=== PATIENT | male | born 1950 | race African-American/Black ===

== ENCOUNTER 2016-10-20 14:29 | Emergency (ER) | payer OTHER ==
[2016-10-20 14:34] VITALS: TEMP 98; BMI 40.6
--- NOTE | 2016-10-20 15:00 | PDOC ---
History of Present Illness - General History Source: Patient Exam Limitations: No Limitations - History of Present Illness Initial Comments: 10/20/16 15:01 The patient is a 66 year old male, with a significant past medical history of HTN and seizures, who was BIBA and presents to the emergency department with left knee and ankle pain occurring today. The patient reports eating and slipping on a wet floor landing on his left knee and left ankle. He denies any head trauma or LOC. He reports hearing a snap in his left ankle with the immediate onset of pain. He ranks his pain a 8/10 in pain intensity. He denies any recent fevers, chills, headache or dizziness. He denies any recent nausea, vomit, diarrhea or constipation. Allergies: As per nursing notes. <Toribio Vasquez - Last Filed: 10/20/16 15:01> - General History Source: Patient Exam Limitations: No Limitations <Tiffany Crabtree - Last Filed: 10/20/16 17:11> - General Chief Complaint: Injury Stated Complaint: LEG INJURY Time Seen by Provider: 10/20/16 14:48 Past History <Toribio Vasquez - Last Filed: 10/20/16 15:01> - Past Medical History HTN: Yes Seizures: Yes - Surgical History Appendectomy: Yes - Immunization History Immunization Up to Date: Yes - Psycho/Social/Smoking Cessation Hx Suicidal Ideation: No Smoking Status: No Smoking History: Never smoked Number of Cigarettes Smoked Daily: 0 Information on smoking cessation initiated: No Hx Alcohol Use: No Drug/Substance Use Hx: No Substance Use Type: None <Tiffany Crabtree - Last Filed: 10/20/16 17:11> - Past Medical History Allergies/Adverse Reactions: Allergies Allergy/AdvReac Type Severity Reaction Status Date / Time ciprofloxacin [From Cipro] AdvReac Intermediate Verified 10/20/16 14:31 ciprofloxacin HCl AdvReac Intermediate Verified 10/20/16 14:31 [From Cipro] Home Medications: Ambulatory Orders Amlodipine Besylate [Norvasc -] 10 mg PO DAILY 05/25/15 Atorvastatin Ca [Lipitor] 40 mg PO HS 05/25/15 Carbamazepine Xr [Tegretol XR -] 400 mg PO BID 05/25/15 Clonidine HCl 1 mg PO AM 05/25/15 Divalproex [Depakote -] 1,000 mg PO BID 05/25/15 Losartan Potassium [Cozaar] 100 mg PO DAILY 05/25/15 Tamsulosin HCl [Flomax -] 0.4 mg PO BID 05/25/15 Topiramate [Topamax] 100 mg PO BID 05/25/15 Clonidine HCl 0.4 mg PO HS 10/20/16 Review of Systems - Review of Systems Able to Perform ROS?: Yes Comments:: 10/20/16 15:02 GENERAL/CONSTITUTIONAL: No: fever, chills, weakness, loss of appetite. HEAD, EYES, EARS, NOSE AND THROAT: No: change in vision, ear pain, discharge, sore throat, throat swelling. CARDIOVASCULAR: No: chest pain, lightheadedness, palpitations, syncope RESPIRATORY: No: cough, shortness of breath, wheezing, hemoptysis, stridor. GASTROINTESTINAL: No: nausea, vomiting, diarrhea, abdominal cramping, rectal bleeding, constipation. GENITOURINARY: No: dysuria, hematuria, frequency, urgency, flank pain. MUSCULOSKELETAL: +left knee pain and left ankle pain. No: back pain, neck pain, muscle swelling or pain SKIN : No: lesions, pallor, rash or easy bruising. NEUROLOGIC: No: headache, vertigo, paresthesias, weakness ENDOCRINE: No: unexplained weight gain or loss HEMATOLOGIC/LYMPHATIC: No: anemia, easy bleeding, swelling nodes. <Toribio Vasquez - Last Filed: 10/20/16 15:01> *Physical Exam - Vital Signs Last Vital Signs Temp Pulse Resp BP Pulse Ox 98.0 F 85 20 160/89 100 10/20/16 14:31 10/20/16 14:31 10/20/16 14:31 10/20/16 14:31 10/20/16 14:31 - Physical Exam Comments: 10/20/16 15:02 GENERAL: The patient is in no acute distress. HEAD: Normal with no signs of trauma. EYES: PERRLA, EOMI, sclera anicteric, conjunctiva clear. ENT: Ears normal, nares patent, oropharynx clear without exudates. Moist mucous membranes. NECK: Normal range of motion, supple without lymphadenopathy, JVD, or masses. LUNGS: Breath sounds equal, clear to auscultation bilaterally. No wheezes, and no crackles. HEART: Regular rate and rhythm, normal S1 and S2 without murmur, rub or gallop. ABDOMEN: Soft, nontender, normoactive bowel sounds. No guarding, no rebound. No masses palpable. EXTREMITIES: LEFT Medial malleolar tenderness. Anterior drawer and posterior drawer are negative. NEUROLOGICAL: Cranial nerves II through XII grossly intact. Normal speech. No focal neurological deficits. MUSCULOSKELETAL: Back non-tender to palpation, no CVA tenderness SKIN: Warm, Dry, normal turgor, no rashes or lesions noted. <Toribio Vasquez - Last Filed: 10/20/16 15:01> - Vital Signs Last Vital Signs Temp Pulse Resp BP Pulse Ox 98.0 F 85 20 160/89 100 10/20/16 14:31 10/20/16 14:31 10/20/16 14:31 10/20/16 14:31 10/20/16 14:31 <Tiffany Crabtree - Last Filed: 10/20/16 17:11> Medical Decision Making - Medical Decision Making 10/20/16 15:00 A portion of this note was documented by scribe services under my direction. I have reviewed the details of the note, within reason, and agree with the documentation with the following case summary and management plan written by me. Nursing documentation reviewed and incorporated into medical decision making 10/20/16 17:05 This is a 66-year-old male with a history of seizures, hypertension who presents to the emergency department with a complaint of left knee pain. Patient states he was walking in [employer], floor was wet, and his leg slipped and buckled beneath him, causing him to fall backwards. Patient denies head trauma, patient denies loss of consciousness. Patient states his knee bent beneath him and his knee hit the ground. On examination patient complains of left medial malleolus pain and tenderness, left knee pain. Patient is able to range at his ankle with no difficulties, however this causes pain. Patient is able to flex at the knee however this is limited due to pain. No swelling noted. No patellar tenderness. Anterior drawer negative. Posterior drawer negative. Will do x ray Will give pain medication Pt refused narcotics Given Motrin and Robaxin with improvements in symptoms Xray: no fracture or dislocation, (+) arthritis I have explained to patient that I am concerned that he has either a ligamentous injury or meniscal injury Will darius wrap Will give crutches Clinical impression: knee pain <Tiffany Crabtree - Last Filed: 10/20/16 17:11> *DC/Admit/Observation/Transfer - Attestations Scribe Attestion: 10/20/16 15:02 Documentation prepared by Toribio Vasquez, acting as biomedical equipment tech for Tiffany Crabtree MD. <Toribio Vasquez - Last Filed: 10/20/16 15:01> - Discharge Dispostion Admit: No <Tiffany Crabtree - Last Filed: 10/20/16 17:11> Diagnosis at time of Disposition: Knee injury Qualifiers: Encounter type: initial encounter Laterality: left Qualified Code(s): S89.92XA - Unspecified injury of left lower leg, initial encounter - Discharge Dispostion Disposition: HOME Condition at time of disposition: Improved - Referrals Referrals: Genevieve Whitman MD [Primary Care Provider] - Uli Acosta MD [Staff Physician] - Josias Gutiérrez MD [Staff Physician] - - Patient Instructions Printed Discharge Instructions: DI for Knee Pain, DI for Knee Sprain Additional Instructions: Prasanna I am so sorry this happened to you today Please keep knee immobilized Please use crutches as needed for ambulation Please follow up with your Primary Care physician and Ortho before the end of the week - Post Discharge Activity Work/School Note: Back to Work
[2016-10-20] MEDS ORDERED: IBUPROFEN 600 MG TABLET (FP) PO ONE ×2 (15:01→15:18)
[2016-10-20] MEDS ORDERED: METHOCARBAMOL 500 MG TABLET PO ONE (15:01)
[2016-10-20] MEDS ORDERED: OXYCODONE/APAP 5/325MG COMBO TABLET PO ONE (15:01)
[2016-10-20] MEDS ORDERED: METHOCARBAMOL 500 MG TABLET ONE (15:17)
[2016-10-20] MEDS ORDERED: OXYCODONE/APAP 5/325MG COMBO TABLET ONE (15:17)
[2016-10-20 17:30] VITALS: BP 147/88; PULSE 65
== END 2016-10-20 17:31 | disposition home or self-care (01) ==
LOC: JER 14:29
PROC: 2W3RX1Z Immobilization of Left Lower Leg using Splint (ICD-10-PCS; principal; 2016-10-20)
DX: S89.92XA Unspecified injury of left lower leg, initial encounter (principal); W01.0XXA Fall on same level from slipping, tripping and stumbling without subsequent striking against object, initial encounter; Y93.89 Activity, other specified; Y92.9 Unspecified place or not applicable; I10 Essential (primary) hypertension
CPT/HCPCS: 29515; 73562-TC-LT; 73610-TC-LT; 73630-TC-LT; 99282-25

== ENCOUNTER 2016-11-25 12:37 | Emergency (ER) | payer OTHER ==
[2016-11-25 12:46] VITALS: BP 144/90; PULSE 91; TEMP 98; BMI 35.9
== END 2016-11-25 14:05 | disposition left against medical advice (07) ==
LOC: JERFT 12:37
DX: Z53.21 Procedure and treatment not carried out due to patient leaving prior to being seen by health care provider (principal)
CPT/HCPCS: 99281-25

== ENCOUNTER 2018-05-13 13:06 | Emergency (ER) | payer OTHER ==
[2018-05-13 13:17] VITALS: TEMP 98.6; BMI 34.0
--- NOTE | 2018-05-13 13:21 | PDOC ---
History of Present Illness - History of Present Illness Initial Comments: The patient is a 68 year old male, with a significant past medical history of HTN, HLD, BPH and seizures, who comes in complaining of a week of difficulty urinating, urgency and dark colored urine. Patient reports recent illness on April 30 with associated fever (103F)& body aches, and was given a course of Augmentin by his primary care doctor. One week ago, he began experiencing a increased urgency, stream inconsistency, and dark tea colored urine. Patient s reports some lower back pain. Today, he states that he saw his urologist who sent him to the ER to r/o acute renal insufficiency. Patient denies any current chest pain, shortness of breath, lightheadedness, or dizziness. Patient denies any dysuria, blood clots in urine, or prior history of UTIs. Allergies: ciprofloxacin Past surgical history: Appendectomy Social history: Quit smoking 4 years ago. PCP - Dr. Genevieve Whitman Urologist: Dr. Chacon <Lupis Coronado - Last Filed: 05/13/18 16:12> - General History Source: Patient Exam Limitations: No Limitations <Tiffany Crabtree - Last Filed: 05/13/18 16:24> - General Chief Complaint: Urinary Problem Stated Complaint: PAIN Time Seen by Provider: 05/13/18 13:21 Past History <Lupis Coronado - Last Filed: 05/13/18 16:12> - Past Medical History COPD: No HTN: Yes Hypercholesterolemia: Yes Seizures: Yes - Surgical History Appendectomy: Yes - Immunization History Immunization Up to Date: Yes - Suicide/Smoking/Psychosocial Hx Smoking Status: No Smoking History: Never smoked Number of Cigarettes Smoked Daily: 0 Hx Alcohol Use: No Drug/Substance Use Hx: No Substance Use Type: None <Tiffany Crabtree - Last Filed: 05/13/18 16:24> - Past Medical History Allergies/Adverse Reactions: Allergies Allergy/AdvReac Type Severity Reaction Status Date / Time ciprofloxacin [From Cipro] AdvReac Intermediate dizziness Verified 05/13/18 14: 16 Home Medications: Ambulatory Orders Amlodipine Besylate [Norvasc -] 10 mg PO DAILY 05/25/15 Atorvastatin Ca [Lipitor] 40 mg PO HS 05/25/15 Carbamazepine Xr [Tegretol XR -] 400 mg PO BID 05/25/15 Clonidine HCl 1 mg PO AM 05/25/15 Divalproex [Depakote -] 1,000 mg PO BID 05/25/15 Losartan Potassium [Cozaar] 100 mg PO DAILY 05/25/15 Tamsulosin HCl [Flomax -] 0.4 mg PO BID 05/25/15 Topiramate [Topamax] 100 mg PO BID 05/25/15 Clonidine HCl 0.4 mg PO HS 10/20/16 Methocarbamol [Robaxin -] 500 mg PO TID PRN #21 tablet 10/20/16 Review of Systems - Review of Systems Comments:: GENERAL/CONSTITUTIONAL: No: fever, chills, weakness, loss of appetite. HEAD, EYES, EARS, NOSE AND THROAT: No: change in vision, ear pain, discharge, sore throat, throat swelling. CARDIOVASCULAR: No: chest pain, lightheadedness, palpitations, syncope RESPIRATORY: No: cough, shortness of breath, wheezing, hemoptysis, stridor. GASTROINTESTINAL: No: nausea, vomiting, abdominal cramping, diarrhea, rectal bleeding, constipation. GENITOURINARY: + dark colored urine, urgency, inconsistent streams No: dysuria, flank pain. MUSCULOSKELETAL: + some mid-line lumbar tenderness No: neck pain, joint pain, muscle swelling or pain SKIN: No: lesions, pallor, rash or easy bruising. NEUROLOGIC: No: headache, vertigo, paresthesias, weakness ENDOCRINE: No: unexplained weight gain or loss HEMATOLOGIC/LYMPHATIC: No: anemia, easy bleeding, swelling nodes <Lupis Coronado - Last Filed: 05/13/18 16:12> *Physical Exam - Vital Signs Last Vital Signs Temp Pulse Resp BP Pulse Ox 98.6 F 70 18 149/83 99 05/13/18 13:12 05/13/18 13:12 05/13/18 13:12 05/13/18 13:12 05/13/18 13:12 - Physical Exam Comments: GENERAL: The patient is in no acute distress. HEAD: Normal with no signs of trauma. EYES: PERRLA, EOMI, sclera anicteric, conjunctiva clear. ENT: Ears normal, nares patent, oropharynx clear without exudates. Moist mucous membranes. NECK: Normal range of motion, supple without lymphadenopathy, JVD, or masses. LUNGS: Breath sounds equal, clear to auscultation bilaterally. No wheezes, and no crackles. HEART:Regular rate and rhythm, normal S1 and S2 without murmur, rub or gallop. ABDOMEN: Soft, nontender, normoactive bowel sounds. No guarding, no rebound. EXTREMITIES: Normal range of motion, no edema. No clubbing or cyanosis. No erythema, or tenderness. NEUROLOGICAL: Cranial nerves II through XII grossly intact. Normal speech. No focal neurological deficits. MUSCULOSKELETAL: Some mild mid-line lumbar tenderness, no CVA tenderness SKIN: Warm, Dry, normal turgor, no rashes or lesions noted. Prostate Exam: No testicular pain or swelling. <Lupis Coronado - Last Filed: 05/13/18 16:12> - Vital Signs Last Vital Signs Temp Pulse Resp BP Pulse Ox 98.6 F 70 18 149/83 99 05/13/18 13:12 05/13/18 13:12 05/13/18 13:12 05/13/18 13:12 05/13/18 13:12 <Tiffany Crabtree - Last Filed: 05/13/18 16:24> ED Treatment Course - LABORATORY CBC & Chemistry Diagram: 05/13/18 14:02 05/13/18 14:02 - ADDITIONAL ORDERS Additional order review: 05/13/18 14:02 RBC 4.52 MCV 98.0 H MCHC 33.1 RDW 14.4 MPV 9.6 Neutrophils % 57.3 D Lymphocytes % 26.3 Monocytes % 15.2 H Eosinophils % 0.2 D Basophils % 1.0 <Lupis Coronado - Last Filed: 05/13/18 16:12> - LABORATORY CBC & Chemistry Diagram: 05/13/18 14:02 05/13/18 14:02 <Tiffany Crabtree - Last Filed: 05/13/18 16:24> Medical Decision Making - Medical Decision Making 68 uo M h/o seizure d/o, HTN, presenting to the ER from Urologist's office due to abn labs Urine is dark, frequency and urgency No fevers or chills No flank or groin pain Pt has back pain - midline lumbar tenderness DD: Dark urine - hematuria vs. concentrated urine? If hematuria - glomerulonephritis vs. UTI vs cystitis If urine concentrated - will give IV fluids 05/13/18 14:51 Laboratory Tests 05/13/18 05/13/18 14:02 14:02 WBC 10.0 Hgb 14.7 Hct 44.3 Plt Count 248 D Neutrophils % 57.3 D Lymphocytes % 26.3 Urine Ketones Negative Urine Blood Negative Urine Nitrite Negative Ur Leukocyte Esterase Negative 05/13/18 15:21 Laboratory Tests 05/27/15 05/28/15 05/13/18 06:20 06:00 14:02 WBC 8.8 D 10.0 Hgb 14.3 14.7 Hct 43.2 44.3 Plt Count 140 248 D Sodium 140 Potassium 3.9 Chloride 108 H Carbon Dioxide 23 BUN 16 Creatinine 1.2 Calcium 8.2 L Creatine Kinase 05/13/18 14:02 WBC Hgb Hct Plt Count Sodium 141 Potassium 4.8 Chloride 110 H Carbon Dioxide 23 BUN 20 H Creatinine 1.5 H Calcium 8.2 L Creatine Kinase 382 H 05/13/18 15:[address] Arndt. Will discharged home. Will ask patient to stay hydrated. Will ask patient to continue further BPH. Will ask patient should follow-up with his urologist. His labs. Return to the ER for any other concerns or complaints Clinical impression: Dark colored urine, initial presentation <Tiffany Crabtree - Last Filed: 05/13/18 16:24> *DC/Admit/Observation/Transfer - Attestations Scribe Attestion: 05/13/18 14:47 Documentation prepared by Lupis Coronado, acting as medical sonographer for Tiffany Crabtree MD. <Lupis Coronado - Last Filed: 05/13/18 16:12> - Discharge Dispostion Decision to Admit order: No <Tiffany Crabtree - Last Filed: 05/13/18 16:24> Diagnosis at time of Disposition: Dehydration - Discharge Dispostion Disposition: HOME Condition at time of disposition: Stable - Referrals Referrals: Genevieve Whitman MD [Staff Physician] - Manny Chacon MD [Staff Physician] - - Patient Instructions Printed Discharge Instructions: DI for Dehydration -- Adult Additional Instructions: Mr Mckeon Thank you for coming in to the ER today Please be sure to stay hydrated by drinking as much fluids as possible Please be sure to follow up with your primary care physician AND your Urologist within 1 week Monitor yourself for fevers or chills Return to the ER for any other concerns or complaints
[2018-05-13] MEDS ORDERED: SODIUM CHLORIDE 1,000 ML IV SCH (14:00)
[2018-05-13 14:16] LABS: EOS % 0.2 % (0-4.5); HEMATOCRIT 44.3 % (35.4-49); HEMOGLOBIN 14.7 GM/dL (11.7-16.9); LYMPH % 26.3 % (8-40); MCH 32.4 pg (25.7-33.7); MCHC 33.1 g/dl (32.0-35.9); MEAN PLT VOLUME 9.6 fl (7.5-11.1); MONO % 15.2 % (3.8-10.2); NEUT % 57.3 % (42.8-82.8); PLATELET COUNT 248 K/MM3 (134-434); RBC 4.52 M/mm3 (4.00-5.60); RDW 14.4 % (11.9-15.9)
[2018-05-13 14:25] LABS: URINE APPEARANCE CLEAR; URINE BILIRUBIN NEGATIVE (<2.0 mg/dL); URINE COLOR DKYELLOW; URINE GLUCOSE (UA) NEGATIVE (NEGATIVE); URINE KETONE NEGATIVE (NEGATIVE); URINE LEUK ESTERASE NEGATIVE (NEGATIVE); URINE NITRITE NEGATIVE (NEGATIVE); URINE PROTEIN NEGATIVE (NEGATIVE); URINE UROBILINOGEN NEGATIVE mg/dL (0.2-1.0)
[2018-05-13 15:03] LABS: ALBUMIN 2.8 g/dl (3.4-5.0); ALK PHOS 132 U/L (45-117); ANION GAP 8 MMOL/L (8-16); BILIRUBIN,TOTAL 0.5 mg/dL (0.2-1); BLOOD UREA NITROGEN 20 mg/dL (7-18); CALCIUM 8.2 mg/dL (8.5-10.1); CHLORIDE 110 mmol/L (98-107); CO2 23 mmol/L (21-32); CREATININE 1.5 mg/dL (0.55-1.3); GLUCOSE,RANDOM 110 mg/dL (74-106); SGOT/AST 57 U/L (15-37); SGPT/ALT 43 U/L (13-61); SODIUM 141 mmol/L (136-145); TOT PROT 7.8 g/dl (6.4-8.2)
[2018-05-13 15:10] LABS: POTASSIUM 4.8 mmol/L (3.5-5.1)
[2018-05-13 17:12] VITALS: BP 124/78; PULSE 59
== END 2018-05-13 17:10 | disposition home or self-care (01) ==
LOC: JER 13:06
PROC: 3E0337Z Introduction of Electrolytic and Water Balance Substance into Peripheral Vein, Percutaneous Approach (ICD-10-PCS; principal; 2018-05-13)
DX: E86.0 Dehydration (principal); I10 Essential (primary) hypertension; N40.0 Benign prostatic hyperplasia without lower urinary tract symptoms; R56.9 Unspecified convulsions; E78.5 Hyperlipidemia, unspecified
CPT/HCPCS: 36415; 80053; 81003; 82550; 82553; 85025; 87086; 96360; 99282-25; J7030

== ENCOUNTER 2018-09-12 10:38 | Emergency (ER) | payer OTHER ==
[2018-09-12 10:50] VITALS: BP 183/98; PULSE 89; TEMP 97.7; BMI 34.0
[2018-09-12 11:47] LABS: BASO % 0.6 % (0-2.0); EOS % 0.9 % (0-4.5); HEMATOCRIT 46.1 % (35.4-49); HEMOGLOBIN 15.8 GM/dL (11.7-16.9); LYMPH % 29.5 % (8-40); MCH 33.4 pg (25.7-33.7); MCHC 34.3 g/dl (32.0-35.9); MEAN CELL VOLUME 97.4 fl (80-96); MEAN PLT VOLUME 10.6 fl (7.5-11.1); MONO % 16.2 % (3.8-10.2); NEUT % 52.8 % (42.8-82.8); PLATELET COUNT 146 K/MM3 (134-434); RBC 4.73 M/mm3 (4.00-5.60); RDW 14.1 % (11.9-15.9); WHITE BLOOD COUNT 6.2 K/mm3 (4.0-10.0)
[2018-09-12 11:52] LABS: URINE APPEARANCE CLEAR; URINE BILIRUBIN NEGATIVE (<2.0 mg/dL); URINE COLOR YELLOW; URINE GLUCOSE (UA) NEGATIVE (NEGATIVE); URINE KETONE NEGATIVE (NEGATIVE); URINE LEUK ESTERASE NEGATIVE (NEGATIVE); URINE NITRITE NEGATIVE (NEGATIVE); URINE PROTEIN NEGATIVE (NEGATIVE)
--- NOTE | 2018-09-12 11:53 | PDOC ---
History of Present Illness - General Chief Complaint: Back Pain Stated Complaint: BACK PAIN Time Seen by Provider: 09/12/18 11:21 History Source: Patient Exam Limitations: No Limitations - History of Present Illness Initial Comments: 09/12/18 11:46 68-year-old male presents to ED with complaints of right thoracic pain radiating to his right flank area. Patient states has had this discomfort for the past week are relieved with Naprosyn and [id number] Tylenol. Patient denies difficulty urinating, rash, swelling, injury abdominal pain, history of gallstones or liver disease. Patient denies chest pain or shortness of breath along with cough. Occurred: reports: just prior to arrival Severity: reports: mild Method of Injury: Yes: unknown Modifying Factors: improves with: None Loss of Consciousness: no loss of consciousness Associated Symptoms (Fall): other Past History - Travel Traveled outside of the country in the last 30 days: No - Past Medical History Allergies/Adverse Reactions: Allergies Allergy/AdvReac Type Severity Reaction Status Date / Time ciprofloxacin [From Cipro] AdvReac Intermediate dizziness Verified 09/12/18 10: 45 Home Medications: Ambulatory Orders Amlodipine Besylate [Norvasc -] 10 mg PO DAILY 05/25/15 Atorvastatin Ca [Lipitor] 40 mg PO HS 05/25/15 Carbamazepine Xr [Tegretol XR -] 400 mg PO BID 05/25/15 Clonidine HCl 1 mg PO AM 05/25/15 Divalproex [Depakote -] 1,000 mg PO BID 05/25/15 Losartan Potassium [Cozaar] 100 mg PO DAILY 05/25/15 Tamsulosin HCl [Flomax -] 0.4 mg PO BID 05/25/15 Topiramate [Topamax] 100 mg PO BID 05/25/15 Clonidine HCl 0.4 mg PO HS 10/20/16 Cyclobenzaprine HCl [Flexeril -] 5 mg PO TID PRN #12 tablet 09/12/18 Ibuprofen [Motrin -] 600 mg PO TID PRN #21 tablet 09/12/18 COPD: No Disorders: Yes HTN: Yes Hypercholesterolemia: Yes Seizures: Yes - Surgical History Appendectomy: Yes - Immunization History Immunization Up to Date: Yes - Suicide/Smoking/Psychosocial Hx Smoking Status: No Smoking History: Unknown if ever smoked Number of Cigarettes Smoked Daily: 0 Hx Alcohol Use: No Drug/Substance Use Hx: No Substance Use Type: None Patient Lives Alone: No Lives with/in: spouse/SO Review of Systems - Review of Systems Able to Perform ROS?: Yes Constitutional: No: Symptoms Reported HEENTM: No: Symptoms Reported Respiratory: No: Symptoms reported Cardiac (ROS): No: Symptoms Reported ABD/GI: No: Symptoms Reported : No: Symptoms Reported Musculoskeletal: Yes: Back Pain Integumentary: No: Symptoms Reported Neurological: No: Symptoms reported Endocrine: No: Symptoms Reported Hematologic/Lymphatic: No: Symptoms Reported *Physical Exam - Vital Signs Last Vital Signs Temp Pulse Resp BP Pulse Ox 97.7 F 89 22 H 183/98 H 98 09/12/18 10:49 09/12/18 10:49 09/12/18 10:49 09/12/18 10:49 09/12/18 10:49 - Physical Exam General Appearance: Yes: Nourished, Appropriately Dressed. No: Apparent Distress Neck: positive: Supple. negative: Tender, Decreased range of motion Respiratory/Chest: positive: Lungs Clear, Normal Breath Sounds. negative: Chest Tender, Respiratory Distress, Accessory Muscle Use Cardiovascular: positive: Regular Rhythm, Regular Rate. negative: Murmur Musculoskeletal: positive: Other (rt thoracic back pain at t10-12). negative: CVA Tenderness, Vertebral Tenderness Extremity: positive: Normal Capillary Refill. negative: Pedal Edema Integumentary: positive: Normal Color, Warm, Moist Neurologic: positive: Normal Mood/Affect, Motor Strength 5/5 (ambulatory) Moderate Sedation - Procedure Monitoring Vital Signs: Procedure Monitoring Vital Signs Temperature 97.7 F 09/12/18 10:49 Pulse Rate 89 09/12/18 10:49 Respiratory Rate 22 H 09/12/18 10:49 Blood Pressure 183/98 H 09/12/18 10:49 O2 Sat by Pulse Oximetry (%) 98 09/12/18 10:49 ED Treatment Course - LABORATORY CBC & Chemistry Diagram: 09/12/18 11:40 09/12/18 11:40 - RADIOLOGY Radiology Studies Ordered: Category Date Time Status CHEST PA & LAT [RAD] Stat Radiology 09/12/18 11:29 Ordered Medical Decision Making - Medical Decision Making 09/12/18 12:09 CC: right thoracic back pain unrelieved with naprosyn x 1 week, worse with movement Exam: tender to rt thoracic back, skin intact, no abd or cva tenderness Plan: likely m/s related, will check cxr, ua, and labs(lipase and lft) 09/12/18 13:37 Ultrasound shows a questionable mild fatty infiltration of the liver. These correlate with liver enzymes. Borderline overdistended gallbladder measuring 8.8 cm length without intraluminal stones. Patient be discharged home with recommendations to follow up with GI. 09/12/18 13:38 Laboratory Tests 09/12/18 09/12/18 09/12/18 11:40 11:40 11:40 WBC 6.2 Hgb 15.8 Hct 46.1 MCV 97.4 H Absolute Neuts (auto) 3.3 Neutrophils % 52.8 Monocytes % 16.2 H Sodium 141 Potassium 3.9 Chloride 109 H Carbon Dioxide 25 Anion Gap 7 L BUN 16 Creatinine 1.4 H Random Glucose 105 Calcium 8.7 Total Bilirubin 0.3 AST 18 ALT 25 Alkaline Phosphatase 116 Total Protein 8.0 Albumin 3.6 Lipase 494 H Urine Ketones Negative Urine Blood Negative Urine Bilirubin Negative Ur Leukocyte Esterase Negative *DC/Admit/Observation/Transfer Diagnosis at time of Disposition: Fatty liver, Elevated lipase - Discharge Dispostion Disposition: HOME Condition at time of disposition: Good - Prescriptions Prescriptions: Cyclobenzaprine HCl [Flexeril -] 5 mg PO TID PRN #12 tablet PRN Reason: Back Pain Ibuprofen [Motrin -] 600 mg PO TID PRN #21 tablet PRN Reason: Pain - Referrals Referrals: Genevieve Whitman MD [Primary Care Provider] - Mitzy Ruiz MD [Staff Physician] - - Patient Instructions Printed Discharge Instructions: DI for Thoracic Back Pain, DI for Nonalcoholic Fatty Liver Disease Additional Instructions: Please take Motrin and Flexeril for pain. Drink plenty of fluids. Please follow-up with referral paint laboratory technician secondary to abdominal CT findings of fatty liver and over distended gallbladder. - Post Discharge Activity
[2018-09-12] MEDS ORDERED: CYCLOBENZAPRINE HCL 10 MG TABLET (FP) PO ONE (12:07)
[2018-09-12] MEDS ORDERED: CYCLOBENZAPRINE HCL 10 MG TABLET (FP) ONE (12:08)
[2018-09-12 12:30] LABS: ALBUMIN 3.6 g/dl (3.4-5.0); ALK PHOS 116 U/L (45-117); ANION GAP 7 MMOL/L (8-16); BILIRUBIN,TOTAL 0.3 mg/dL (0.2-1); BLOOD UREA NITROGEN 16 mg/dL (7-18); CALCIUM 8.7 mg/dL (8.5-10.1); CHLORIDE 109 mmol/L (98-107); CO2 25 mmol/L (21-32); CREATININE 1.4 mg/dL (0.55-1.3); GLUCOSE,RANDOM 105 mg/dL (74-106); LIPASE 494 U/L (73-393); POTASSIUM 3.9 mmol/L (3.5-5.1); SGOT/AST 18 U/L (15-37); SGPT/ALT 25 U/L (13-61); SODIUM 141 mmol/L (136-145)
== END 2018-09-12 13:44 | disposition home or self-care (01) ==
LOC: JER 10:38
DX: K76.0 Fatty (change of) liver, not elsewhere classified (principal); R74.8 Abnormal levels of other serum enzymes; I10 Essential (primary) hypertension; E78.00 Pure hypercholesterolemia, unspecified; G40.909 Epilepsy, unspecified, not intractable, without status epilepticus
CPT/HCPCS: 36415; 71046-TC-FY; 76705-TC; 80053; 81003; 83690; 85025; 87086; 99281-25

== ENCOUNTER 2018-09-28 10:54 | Inpatient (IN) | payer OTHER ==
--- NOTE | 2018-09-28 11:53 | PDOC ---
History of Present Illness - History of Present Illness Initial Comments: 09/28/18 13:11 The patient is a 68 year old male, with a significant past medical history of HTN, HLD, BPH and seizures, who comes in complaining of one week with constant, 8/10, right sided abdominal pain radiating to his right flank. He states he took some pain medication yesterday with temporary relief, but is unsure of the name. He reports his pain feeling like stabbing whenhe lies on his right side. He denies any other symptoms. Patient denies any current chest pain, shortness of breath, lightheadedness, or dizziness. Patient denies any dysuria, blood clots in urine, or prior history of UTIs. Allergies: ciprofloxacin Past surgical history: Appendectomy Social history: Quit smoking 4 years ago. PCP - Dr. Genevieve Whitman Urologist: Dr. Chacon <Eliane Cuevas - Last Filed: 09/28/18 18:36> - General History Source: Patient Exam Limitations: No Limitations <Tiffany Crabtree - Last Filed: 09/28/18 18:38> - General Chief Complaint: Pain Stated Complaint: FLANK PAIN, VOMITING Time Seen by Provider: 09/28/18 11:53 Past History <Eliane Cuevas - Last Filed: 09/28/18 18:36> - Past Medical History COPD: No Disorders: Yes HTN: Yes Hypercholesterolemia: Yes Seizures: Yes - Surgical History Appendectomy: Yes - Immunization History Immunization Up to Date: Yes - Suicide/Smoking/Psychosocial Hx Smoking Status: No Smoking History: Never smoked Number of Cigarettes Smoked Daily: 0 Information on smoking cessation initiated: No Hx Alcohol Use: No Drug/Substance Use Hx: No Substance Use Type: None <Tiffany Crabtree - Last Filed: 09/28/18 18:38> - Past Medical History Allergies/Adverse Reactions: Allergies Allergy/AdvReac Type Severity Reaction Status Date / Time ciprofloxacin [From Cipro] AdvReac Intermediate dizziness Verified 09/28/18 11: 12 Home Medications: Ambulatory Orders Amlodipine Besylate [Norvasc -] 10 mg PO DAILY 05/25/15 Atorvastatin Ca [Lipitor] 40 mg PO HS 05/25/15 Carbamazepine Xr [Tegretol XR -] 400 mg PO BID 05/25/15 Clonidine HCl 1 mg PO AM 05/25/15 Divalproex [Depakote -] 1,000 mg PO BID 05/25/15 Losartan Potassium [Cozaar] 100 mg PO DAILY 05/25/15 Tamsulosin HCl [Flomax -] 0.4 mg PO BID 05/25/15 Topiramate [Topamax] 100 mg PO BID 05/25/15 Clonidine HCl 0.4 mg PO HS 10/20/16 Cyclobenzaprine HCl [Flexeril -] 5 mg PO TID PRN #12 tablet 09/12/18 Ibuprofen [Motrin -] 600 mg PO TID PRN #21 tablet 09/12/18 Review of Systems - Review of Systems Able to Perform ROS?: Yes Comments:: 09/28/18 13:20 CONSTITUTIONAL: Absent: fever, no chills, no fatigue EYES: Absent: visual changes ENT: Absent: ear pain, no sore throat CARDIOVASCULAR: Absent: chest pain, no palpitations RESPIRATORY: Absent: cough, no SOB GASTROINTESTINAL: (+) R abdominal and R flank pain. nausea, vomiting, Absent: no constipation, no diarrhea GENITOURINARY: Absent: dysuria, no frequency, no hematuria MUSCULOSKELETAL: Absent: back pain, no arthralgia, no myalgia SKIN: Absent: rash NEURO: Absent: headache <Eliane Cuevas - Last Filed: 09/28/18 18:36> *Physical Exam - Vital Signs Last Vital Signs Temp Pulse Resp BP Pulse Ox 98 F 80 20 153/92 94 L 09/28/18 11:09 09/28/18 11:09 09/28/18 11:09 09/28/18 11:09 09/28/18 11:09 - Physical Exam Comments: 09/28/18 13:34 GENERAL: The patient is in no acute distress. HEAD: Normal with no signs of trauma. EYES: PERRLA, EOMI, sclera anicteric, conjunctiva clear. ENT: Ears normal, nares patent, oropharynx clear without exudates. Moist mucous membranes. NECK: Normal range of motion, supple without lymphadenopathy, JVD, or masses. LUNGS: Breath sounds equal, clear to auscultation bilaterally. No wheezes, and no crackles. HEART:Regular rate and rhythm, normal S1 and S2 without murmur, rub or gallop. ABDOMEN: (+) right abdominal ttp. slight abdominal distension. Soft, normoactive bowel sounds. No guarding, no rebound. No masses palpable. EXTREMITIES: Normal range of motion, no edema. No clubbing or cyanosis. No erythema, or tenderness. NEUROLOGICAL: Cranial nerves II through XII grossly intact. Normal speech. No focal neurological deficits. MUSCULOSKELETAL: Back non-tender to palpation, no CVA tenderness SKIN: Warm, Dry, normal turgor, no rashes or lesions noted. <Eliane Cuevas - Last Filed: 09/28/18 18:36> - Vital Signs Last Vital Signs Temp Pulse Resp BP Pulse Ox 98 F 80 20 153/92 94 L 09/28/18 11:09 09/28/18 11:09 09/28/18 11:09 09/28/18 11:09 09/28/18 11:09 <Tiffany Crabtree - Last Filed: 09/28/18 18:38> Moderate Sedation - Procedure Monitoring Vital Signs: Procedure Monitoring Vital Signs Temperature 98 F 09/28/18 11:09 Pulse Rate 80 09/28/18 11:09 Respiratory Rate 20 09/28/18 11:09 Blood Pressure 153/92 09/28/18 11:09 O2 Sat by Pulse Oximetry (%) 94 L 09/28/18 11:09 <Eliane Cuevas - Last Filed: 09/28/18 18:36> - Procedure Monitoring Vital Signs: Procedure Monitoring Vital Signs Temperature 98 F 09/28/18 11:09 Pulse Rate 80 09/28/18 11:09 Respiratory Rate 20 09/28/18 11:09 Blood Pressure 153/92 09/28/18 11:09 O2 Sat by Pulse Oximetry (%) 94 L 09/28/18 11:09 <Tiffany Crabtree - Last Filed: 09/28/18 18:38> ED Treatment Course - LABORATORY CBC & Chemistry Diagram: 09/28/18 12:30 09/28/18 12:30 - ADDITIONAL ORDERS Additional order review: 09/28/18 12:30 RBC 4.88 MCV 95.7 MCHC 34.3 RDW 13.4 MPV 10.4 Neutrophils % 55.5 Lymphocytes % 26.0 Monocytes % 16.7 H Eosinophils % 0.8 Basophils % 1.0 - Medications Given in the ED: ED Medications Discontinued Medications Generic Name Dose Route Start Last Admin Trade Name Freq PRN Reason Stop Dose Admin Acetaminophen 1,000 mg 09/28/18 12:39 09/28/18 12:55 Ofirmev Injection - IVPB 09/28/18 12:40 1,000 mg ONCE ONE Administration Ondansetron HCl 4 mg 09/28/18 12:39 09/28/18 12:56 Zofran Injection IVPUSH 09/28/18 12:40 4 mg ONCE ONE Administration <Eliane Cuevas - Last Filed: 09/28/18 18:36> - LABORATORY CBC & Chemistry Diagram: 09/28/18 12:30 09/28/18 12:30 <Tiffany Crabtree - Last Filed: 09/28/18 18:38> Medical Decision Making - Medical Decision Making 09/28/18 18:34 Dr. Genevieve Whitman was called at this time and the patients case was discussed. <Eliane Cuevas - Last Filed: 09/28/18 18:36> - Medical Decision Making 09/28/18 12:47 Mr Esparza is a 68 yo M who presents to the ER with a complaint of abdominal pain Pt states he has had abdominal pain since September 12 Pain located on the right side of the abdomen no fevers or chills Pt has noted abdominal distention No diarrhea (+) flatus (+) nausea and vomiting Was seen in the ER had US which demonstrated distended gallbladder, fatty liver , pancreas not visualized 09/28/18 12:53 Will do: Labs CT Pain meds IVF 09/28/18 18:03 CT demonstrates: Overdistended gallbladder Diffuse thickening of the duodenal wall, area is inseparable (inflammatory vs infectious) 09/28/18 18:05 09/28/18 18:06 Laboratory Tests 09/28/18 09/28/18 09/28/18 12:30 12:30 12:30 WBC 5.3 Hgb 16.0 Hct 46.6 Plt Count 149 Sodium 138 Potassium 4.3 Chloride 105 Carbon Dioxide 27 BUN 20 H Creatinine 1.2 Random Glucose 99 AST 50 H ALT 63 H Alkaline Phosphatase 152 H Urine Ketones Negative Urine Blood Negative Ur Leukocyte Esterase Negative Awaiting lipase Will plan to discharge if this is negative <Tiffany Crabtree - Last Filed: 09/28/18 18:38> *DC/Admit/Observation/Transfer - Attestations Scribe Attestion: 09/28/18 13:34 Documentation prepared by Eliane Cuevas, acting as medical collector for Tiffany Crabtree MD <Eliane Cuevas - Last Filed: 09/28/18 18:36> - Discharge Dispostion Decision to Admit order: Yes <Tiffany Crabtree - Last Filed: 09/28/18 18:38> Diagnosis at time of Disposition: Pancreatitis Qualifiers: Chronicity: acute Pancreatitis type: unspecified pancreatitis type Acute pancreatitis complication: unspecified Qualified Code(s): K85.90 - Acute pancreatitis without necrosis or infection, unspecified - Discharge Dispostion Condition at time of disposition: Stable - Referrals Referrals: Genevieve Whitman MD [Primary Care Provider] -
[2018-09-28] MEDS ORDERED: ACETAMINOPHEN 1000 MG/100 ML VIAL (NON FORMULARY) IVPB ONE (12:39)
[2018-09-28] MEDS ORDERED: SODIUM CHLORIDE 1,000 ML IV STA ×2 (12:39→18:40)
[2018-09-28] MEDS ORDERED: ONDANSETRON 4 MG/2 ML VIAL IVPUSH ONE (12:39)
[2018-09-28 12:49] LABS: EOS % 0.8 % (0-4.5); HEMATOCRIT 46.6 % (35.4-49); MCH 32.8 pg (25.7-33.7); MCHC 34.3 g/dl (32.0-35.9); MEAN CELL VOLUME 95.7 fl (80-96); MEAN PLT VOLUME 10.4 fl (7.5-11.1); MONO % 16.7 % (3.8-10.2); NEUT % 55.5 % (42.8-82.8); PLATELET COUNT 149 K/MM3 (134-434); RBC 4.88 M/mm3 (4.00-5.60); RDW 13.4 % (11.9-15.9); WHITE BLOOD COUNT 5.3 K/mm3 (4.0-10.0)
[2018-09-28] MEDS ORDERED: ACETAMINOPHEN INJECTION 100 ML IVPB ONE (12:49)
[2018-09-28] MEDS ORDERED: ONDANSETRON 4 MG/2 ML VIAL ONE (12:50)
[2018-09-28 13:08] LABS: URINE APPEARANCE CLEAR; URINE BILIRUBIN NEGATIVE (<2.0 mg/dL); URINE COLOR YELLOW; URINE GLUCOSE (UA) NEGATIVE (NEGATIVE); URINE KETONE NEGATIVE (NEGATIVE); URINE LEUK ESTERASE NEGATIVE (NEGATIVE); URINE NITRITE NEGATIVE (NEGATIVE); URINE PROTEIN NEGATIVE (NEGATIVE); URINE UROBILINOGEN NEGATIVE mg/dL (0.2-1.0)
[2018-09-28 13:30] LABS: ALBUMIN 3.6 g/dl (3.4-5.0); ALK PHOS 152 U/L (45-117); ANION GAP 7 MMOL/L (8-16); BILIRUBIN,TOTAL 0.4 mg/dL (0.2-1); BLOOD UREA NITROGEN 20 mg/dL (7-18); CALCIUM 9.1 mg/dL (8.5-10.1); CHLORIDE 105 mmol/L (98-107); CO2 27 mmol/L (21-32); CREATININE 1.2 mg/dL (0.55-1.3); GLUCOSE,RANDOM 99 mg/dL (74-106); POTASSIUM 4.3 mmol/L (3.5-5.1); SGOT/AST 50 U/L (15-37); SGPT/ALT 63 U/L (13-61); SODIUM 138 mmol/L (136-145); TOT PROT 8.3 g/dl (6.4-8.2)
[2018-09-28 18:28] LABS: LIPASE 641 U/L (73-393)
[2018-09-28] MEDS ORDERED: CYCLOBENZAPRINE HCL 5 MG TABLET PO PRN (22:24)
[2018-09-28] MEDS: D5-1/2NS+10 MEQ KCL - 10 MEQ/1,000 ML INFUS.BAG IV SCH (23:51)
[2018-09-28] MEDS: TOPIRAMATE 100 MG TABLET PO SCH (23:52)
[2018-09-28] MEDS: ATORVASTATIN CA 40 MG TABLET (FP) PO SCH (23:52)
[2018-09-28] MEDS: DIVALPROEX SODIUM 500 MG TABLET E.C. PO SCH (23:52)
[2018-09-28] MEDS: carBAMazepine XR 400 MG TAB.ER.12H PO SCH (23:52)
[2018-09-29 00:39] VITALS: BMI 32.3
[2018-09-29] MEDS: MEPERIDINE HCL CARPU-JECT 25 MG/1 ML DISP.SYRIN IM PRN ×2 (05:51→19:04)
[2018-09-29] MEDS ORDERED: PT OWN MED DRAWER 7, Y5N ONE ×2 (08:52→21:22)
[2018-09-29] MEDS: TAMSULOSIN HCL 0.4 MG CAP PO SCH (08:55)
[2018-09-29] MEDS: amLODIPine BESYLATE 10 MG TABLET (FP) PO SCH (09:19)
[2018-09-29] MEDS: carBAMazepine XR 400 MG TAB.ER.12H PO SCH ×2 (09:20→21:28)
[2018-09-29] MEDS: DIVALPROEX SODIUM 500 MG TABLET E.C. PO SCH ×2 (09:20→21:28)
[2018-09-29] MEDS: TOPIRAMATE 100 MG TABLET PO SCH ×2 (09:20→21:28)
[2018-09-29] MEDS: cloNIDine HCL 0.1 MG TABLET PO SCH (09:52)
[2018-09-29] MEDS ORDERED: LOSARTAN POTASSIUM 50 MG TABLET (FP) PO SCH (10:00)
[2018-09-29] MEDS: D5-1/2NS+10 MEQ KCL - 10 MEQ/1,000 ML INFUS.BAG IV SCH ×2 (11:03→21:28)
--- NOTE | 2018-09-29 11:47 | HP ---
DATE OF ADMISSION: 09/28/2018 This is a 68-year-old male known to have seizure disorder, came to the emergency room with right upper quadrant pain, admitted with a diagnosis of acute pancreatitis. This morning, patient is still having pain. He is on multiple medications for seizure disorder. He lives with his . Because of his seizure disorder, he is on disability for many years. His last seizure was 6 months ago. He gets mostly petit mal type, being followed by Dr. Simpson. PHYSICAL EXAMINATION: General: Today, he is awake, alert, oriented, talking. Vital Signs: Blood pressure is 154/90, pulse 64, respirations 20, temperature 98. HEENT: Unremarkable. Neck: Supple. No JVD. Lungs: Clear. Heart: S1, S2 normal. No S3, S4. Abdomen: Tenderness present in the right upper quadrant area. Bowel sounds are normal. Legs: No edema. Neurological: Grossly normal. LABORATORY REPORTS: WBC 5, hemoglobin 16, hematocrit 46, platelets 149. Chemistry: Electrolytes are normal. Creatinine 1.2, BUN 20. ALT 50 and AST 53, elevated. Lipase 641. CT of pelvis reported thickening of the duodenal wall to the third portion. Gastric antrum wall inflammation was infection. There is fatty liver. Gallbladder distended, but no stone. IMPRESSION: 1. Acute pancreatitis. 2. Duodenitis. 3. Seizure disorder. PLAN: Keep n.p.o. Demerol for pain. GI consult, Dr. Ruiz. We will continue his seizure medication p.o. Will follow. Magalie [id number]
--- NOTE | 2018-09-29 20:22 | CON.GI ---
Consult Consult Specialty:: Gastroenterology Referred by:: Dr Whitman Reason for Consultation:: Abdominal pain - History of Present Illness Chief Complaint: Right sided abdominal and back pain History of Present Illness: 68M developed right paraumbilical pain that radiates into his back about 2 weeks ago. He has had postprandial bloating that has led to vomiting of his food on several occasions but he denies hematemesis or melena. HIs appetite has remained good but he has lost about 6 lbs since the pain began. The pain is aggravated by lying on his right side. He has never had an ulcer, pancreatitis or an EGD. He denies taking NSAIDs. He denies any FH of GI cancer. He had a colonoscopy in [address]enee at [facility] which he believes was normal. 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 Cardio/Vascular: Yes: HTN, Hyperlipdemia Gastrointestinal: Yes: Diverticulosis Renal/: Yes: BPH Additional Medical History: Cataracts - Past Surgical History Past Surgical History: Yes: Appendectomy, Colonoscopy - Alcohol/Substance Use Hx Alcohol Use: No (quit 1980) History of Substance Use: reports: None - Smoking History Smoking history: Never smoked Aproximately how many cigarettes per day: 0 If you are a former smoker, when did you quit?: 1980 - Social History Usual Living Arrangement: With Spouse ADL: Independent 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 Place of : [facility] History of Recent Travel: No Home Medications - Allergies Allergies/Adverse Reactions: Allergies Allergy/AdvReac Type Severity Reaction Status Date / Time clarithromycin [From Biaxin] Allergy Verified 09/28/18 20:17 ciprofloxacin [From Cipro] AdvReac Intermediate dizziness Verified 09/28/18 11: 12 nitrofurantoin AdvReac Intermediate Verified 09/29/18 04:44 [From Macrobid] - Home Medications Home Medications: Ambulatory Orders Amlodipine Besylate [Norvasc -] 10 mg PO DAILY 05/25/15 Atorvastatin Ca [Lipitor] 40 mg PO HS 05/25/15 Carbamazepine Xr [Tegretol XR -] 400 mg PO BID 05/25/15 Clonidine HCl 1 mg PO AM 05/25/15 Divalproex [Depakote -] 1,000 mg PO BID 05/25/15 Losartan Potassium [Cozaar] 100 mg PO DAILY 05/25/15 Tamsulosin HCl [Flomax -] 0.4 mg PO BID 05/25/15 Topiramate [Topamax] 100 mg PO BID 05/25/15 Clonidine HCl 0.4 mg PO HS 10/20/16 Cyclobenzaprine HCl [Flexeril -] 5 mg PO TID PRN #12 tablet 09/12/18 Ibuprofen [Motrin -] 600 mg PO TID PRN #21 tablet 09/12/18 Family Disease History - Family Disease History Family Disease History: Diabetes: Father ( 70's was on dialysis), Heart Disease: Mother ( 87 ASHD, s/p CABG), CA: Sister (brain cancer), Other: Brother (lung nodule) Review of Systems - Review of Systems Constitutional: reports: Unintentional Wgt. Loss Eyes: reports: No Symptoms HENT: reports: No Symptoms Neck: reports: No Symptoms Cardiovascular: reports: No Symptoms Respiratory: reports: No Symptoms Gastrointestinal: reports: Abdominal Pain, Vomiting Genitourinary: reports: No Symptoms Musculoskeletal: reports: No Symptoms Physical Exam-GI Vital Signs: Vital Signs Temperature 97.5 F L 09/29/18 18:25 Pulse Rate 68 09/29/18 18:25 Respiratory Rate 18 09/29/18 18:25 Blood Pressure 138/89 09/29/18 18:25 O2 Sat by Pulse Oximetry (%) 97 09/29/18 09:00 CBC,CMP WBC 5.3 K/mm3 (4.0-10.0) 09/28/18 12:30 RBC 4.88 M/mm3 (4.00-5.60) 09/28/18 12:30 Hgb 16.0 GM/dL (11.7-16.9) 09/28/18 12:30 Hct 46.6 % (35.4-49) 09/28/18 12:30 MCV 95.7 fl (80-96) 09/28/18 12:30 MCH 32.8 pg (25.7-33.7) 09/28/18 12:30 MCHC 34.3 g/dl (32.0-35.9) 09/28/18 12:30 RDW 13.4 % (11.9-15.9) 09/28/18 12:30 Plt Count 149 K/MM3 (134-434) 09/28/18 12:30 MPV 10.4 fl (7.5-11.1) 09/28/18 12:30 Absolute Neuts (auto) 2.9 K/mm3 (1.5-8.0) 09/28/18 12:30 Neutrophils % 55.5 % (42.8-82.8) 09/28/18 12:30 Lymphocytes % 26.0 % (8-40) 09/28/18 12:30 Monocytes % 16.7 % (3.8-10.2) H 09/28/18 12:30 Eosinophils % 0.8 % (0-4.5) 09/28/18 12:30 Basophils % 1.0 % (0-2.0) 09/28/18 12:30 Nucleated RBC % 0 % (0-0) 09/28/18 12:30 Sodium 138 mmol/L (136-145) 09/28/18 12:30 Potassium 4.3 mmol/L (3.5-5.1) 09/28/18 12:30 Chloride 105 mmol/L (98-107) 09/28/18 12:30 Carbon Dioxide 27 mmol/L (21-32) 09/28/18 12:30 Anion Gap 7 MMOL/L (8-16) L 09/28/18 12:30 BUN 20 mg/dL (7-18) H 09/28/18 12:30 Creatinine 1.2 mg/dL (0.55-1.3) 09/28/18 12:30 Creat Clearance w eGFR > 60 (>60) 09/28/18 12:30 Random Glucose 99 mg/dL (74-106) 09/28/18 12:30 Calcium 9.1 mg/dL (8.5-10.1) 09/28/18 12:30 Total Bilirubin 0.4 mg/dL (0.2-1) 09/28/18 12:30 AST 50 U/L (15-37) H 09/28/18 12:30 ALT 63 U/L (13-61) H 09/28/18 12:30 Alkaline Phosphatase 152 U/L (45-117) H 09/28/18 12:30 Total Protein 8.3 g/dl (6.4-8.2) H 09/28/18 12:30 Albumin 3.6 g/dl (3.4-5.0) 09/28/18 12:30 Lipase 641 U/L (73-393) H 09/28/18 12:30 Current Medications Generic Name Dose Route Start Last Admin Trade Name Freq PRN Reason Stop Dose Admin Amlodipine Besylate 10 mg 09/29/18 10:00 09/29/18 09:19 Norvasc - PO 10 mg DAILY AMINTA Administration Atorvastatin Calcium 40 mg 09/28/18 22:30 09/28/18 23:52 Lipitor - PO 40 mg HS AMINTA Administration Carbamazepine 400 mg 09/28/18 22:30 09/29/18 09:20 Tegretol Xr - PO 400 mg BID AMINTA Administration Clonidine 0.2 mg 09/29/18 10:00 09/29/18 09:52 Catapres - PO 0.2 mg DAILY AMINTA Administration Cyclobenzaprine HCl 5 mg 09/28/18 22:24 Cyclobenzaprine Hcl PO Q8H PRN MUSCLE SPASMS Divalproex Sodium 1,000 mg 09/28/18 22:30 09/29/18 09:20 Depakote - PO 1,000 mg BID AMINTA Administration Potassium Chloride/Dextrose/Sod Cl 10 meq in 1,000 mls @ 100 mls/hr 09/28/18 22:30 09/29/18 11:03 D5-1/2ns+10 Meq Kcl - IV 100 mls/hr ASDIR AMINTA Administration Losartan Potassium 100 mg 09/29/18 10:00 09/29/18 09:19 Cozaar - PO 100 mg BID AMINTA Administration Meperidine HCl 50 mg 09/28/18 22:42 09/29/18 19:04 Demerol Injection - IM 50 mg Q6H PRN Administration PAIN LEVEL 6-10 Tamsulosin HCl 0.4 mg 09/29/18 08:30 09/29/18 08:55 Flomax - PO 0.4 mg DAILY@0830 AMINTA Administration Topiramate 100 mg 09/28/18 22:30 09/29/18 09:20 Topamax - PO 100 mg BID AMINTA Administration Constitutional: Yes: Calm Eyes: Yes: Conjunctiva Clear HENT: Yes: Atraumatic Neck: Yes: Supple Cardiovascular: Yes: Regular Rate and Rhythm Respiratory: Yes: CTA Bilaterally Gastrointestinal Inspection: Yes: Scars (healed RLQ incision) ...Auscultate: Yes: Normoactive Bowel Sounds ...Palpate: Yes: Soft, Other (nontender) ...Rectal Exam: Yes: Guaiac Positive, Other (2+ prostate, no masses) Labs: CBC, BMP 09/28/18 12:30 09/28/18 12:30 Imaging - Results X-ray: Report Reviewed Cat Scan: Report Reviewed (Lv Pearson Name: [facility]OLOG[facility] Phys: Tiffany Crabtree MD : 1950 Age: 68 Sex: M [facility] Acct: [id number] Loc: [address] Exam Date: 09/28/18 Status: ADAL [place] [address] Unit Number: [id number] EXAM#: TYPE/EXAM: RESULT: [id number] CT/ABDOMEN PELVIS CT WITH CONTR Right side abdominal pain and distention. CT scan of the abdomen and pelvis following oral and intravenous contrast. Coronal and sagittal reformatted images were obtained 96 cc of Omnipaque 350 was intravenously injected Comparison: Compared to prior CT scan of the chest dated 07/29/2011 There are mild atelectatic changes in the right lung base with mild pleural thickening. The rest of the included lower lung appears unremarkable and the heart is within normal limits in size. The liver is within normal limits in size. 10 mm focal low-attenuation density in the left hepatic lobe and decreased attenuation mainly in the right hepatic lobe suggestive of fatty infiltration. The spleen appears unremarkable. Gallbladder appears to be over distended without gross intraluminal stones or wall thickening. The pancreas appears grossly unremarkable. Moderately distended stomach. Cannot rule out wall thickening in the distal level of the gastric antrum. There is diffuse thickening of the duodenal wall in particular its third portion that is inseparable from the pancreatic head with mild stranding of the surrounding fat. Proximal jejunal loops appear unremarkable. There is no evidence of small bowel obstruction. Normal-appearing terminal ileum. Nonvisualization of the appendix. Normal stool burden the colon with a few diverticula in the proximal and mid sigmoid colon without evidence of acute diverticulitis. She distended urinary bladder without wall thickening. Prominent/enlarged prostate gland measuring 5.2 x 4.3 cm. No free air or free fluid in the abdomen pelvis. Normal size and enhancement of the abdominal aorta down through its bifurcation. There are multiple mesenteric lymph nodes seen in the gastrohepatic ligament region, pericecal iliac and pericecal mesenteric as well as para-aortic measuring up to 1.5 cm which are nonspecific. Visualized osseous structures appear intact Impression: There is significant thickening of the duodenal wall, in particular its horizontal/third portion that is inseparable from uncinate process of the pancreatic head consistent with duodenitis, inflammatory versus infectious. There is also suggestion of thickening of the distal gastric antrum wall, inflammatory versus infectious. Trace of free fluid seen along the inferior medial margin of the liver. Mesenteric as well as para-aortic lymph nodes measuring up to 1.5 cm which are nonspecific and may be postinfectious. Over distended gallbladder without intraluminal stones or wall thickening. Fatty liver mainly involving the right hepatic lobe with a 1 cm low-attenuation lesion in the left hepatic lobe Nonvisualization of the appendix Reported By: Joseph Muro MD 09/28/181745 Tiffany Crabtree Technologist: Tez Arroyo Transcribed Date/Time: 09/28/181745 Rf Test Engineer: Joseph Muro Printed Date/Time: By: Signed by: Joseph Muro Signed on: Sep-2018 17:47) Problem List - Problems (1) Duodenitis Assessment/Plan: The right sided abdominal and back pain correlate with the CT findings that suggest duodenal inflammation. This could be ulcer disease with the locations suggesting Mehnaz Vincent syndrome. This could reflect celiac disease, Crohn' s Diseasem,diverticulitis or an infectious process, ie giardiasis, parasite. A neoplasm needs to be excluded. This does not appear to be pancreatitis but a neoplasm of the pancreas may be the underlying etiology. I have proposed an enteroscopy and biopsies. I informed Tc of the potential for such complications as perforation and hemorrhage. He has granted an informed consent and I izaiah do the procedure tomorrow. Code(s): K29.80 - DUODENITIS WITHOUT BLEEDING (2) Abnormal liver function tests Assessment/Plan: This could be a reactive hepatopathy or perhaps [place]. The left lobe hypoattenuated area will need to be followed. I gave him our business card. Code(s): R94.5 - ABNORMAL RESULTS OF LIVER FUNCTION STUDIES (3) Fatty liver Code(s): K76.0 - FATTY (CHANGE OF) LIVER, NOT ELSEWHERE CLASSIFIED (4) Seizure disorder Code(s): G40.909 - EPILEPSY, UNSP, NOT INTRACTABLE, WITHOUT STATUS EPILEPTICUS (5) Diverticulosis Code(s): K57.90 - DVRTCLOS OF INTEST, PART UNSP, W/O PERF OR ABSCESS W/O BLEED Assessment/Plan Duodenitis may be ulcers, infection, Crohn's Disease, celiac disease or a neoplasm Reactive hepatopathy vs [place] Diverticulosis Plan: EGD and enteroscopy tomorrow PPI empirically Chronic liver disease screening
[2018-09-29] MEDS: ATORVASTATIN CA 40 MG TABLET (FP) PO SCH (21:27)
[2018-09-29] MEDS: PANTOPRAZOLE SODIUM 80 MG in SODIUM CHLORIDE 100 ML IVPB SCH (21:55)
[2018-09-30] MEDS: PANTOPRAZOLE SODIUM 80 MG in SODIUM CHLORIDE 100 ML IVPB SCH (07:05)
[2018-09-30] MEDS: D5-1/2NS+10 MEQ KCL - 10 MEQ/1,000 ML INFUS.BAG IV SCH ×2 (07:05→21:29)
[2018-09-30 08:52] LABS: INR 1.09 (0.83-1.09); PROTHROMBIN TIME (PATIENT) 12.9 SEC (9.7-13.0)
[2018-09-30 09:00] LABS: ALBUMIN 3.1 g/dl (3.4-5.0); BILIRUBIN,DIRECT 0.2 mg/dL (0.0-0.2); BILIRUBIN,TOTAL 0.6 mg/dL (0.2-1); TOT PROT 7.3 g/dl (6.4-8.2)
--- NOTE | 2018-09-30 09:12 | PN ---
Progress Note, Physician Chief Complaint: Feels better History of Present Illness: ava Johnston GI consult appreciated Scheduled for EGD today - Current Medication List Current Medications: Active Medications Amlodipine Besylate (Norvasc -) 10 mg PO DAILY [facility] Last Admin: 09/29/18 09:19 Dose: 10 mg Atorvastatin Calcium (Lipitor -) 40 mg PO HS [facility] Last Admin: 09/29/18 21:27 Dose: 40 mg Carbamazepine (Tegretol Xr -) 400 mg PO BID [facility] Last Admin: 09/29/18 21:28 Dose: 400 mg Clonidine (Catapres -) 0.2 mg PO DAILY [facility] Last Admin: 09/29/18 09:52 Dose: 0.2 mg Cyclobenzaprine HCl (Cyclobenzaprine Hcl) 5 mg PO Q8H PRN PRN Reason: MUSCLE SPASMS Divalproex Sodium (Depakote -) 1,000 mg PO BID [facility] Last Admin: 09/29/18 21:28 Dose: 1,000 mg Potassium Chloride/Dextrose/Sod Cl (D5-1/2ns+10 Meq Kcl -) 10 meq in 1,000 mls @ 100 mls/hr IV ASDIR [facility] Last Admin: 09/30/18 07:05 Dose: 100 mls/hr Pantoprazole Sodium 80 mg/ (Sodium Chloride) 100 mls @ 10 mls/hr IVPB Q10H [facility] Last Admin: 09/30/18 07:05 Dose: 10 mls/hr Losartan Potassium (Cozaar -) 100 mg PO BID [facility] Last Admin: 09/29/18 09:19 Dose: 100 mg Meperidine HCl (Demerol Injection -) 50 mg IM Q6H PRN PRN Reason: PAIN LEVEL 6-10 Last Admin: 09/29/18 19:04 Dose: 50 mg Tamsulosin HCl (Flomax -) 0.4 mg PO DAILY@0830 [facility] Last Admin: 09/29/18 08:55 Dose: 0.4 mg Topiramate (Topamax -) 100 mg PO BID [facility] Last Admin: 09/29/18 21:28 Dose: 100 mg - Objective Vital Signs: Vital Signs Temperature 98.0 F 09/30/18 06:00 Pulse Rate 64 09/30/18 06:00 Respiratory Rate 18 09/30/18 06:00 Blood Pressure 142/77 09/30/18 06:00 O2 Sat by Pulse Oximetry (%) 97 09/29/18 21:00 Constitutional: Yes: No Distress Eyes: Yes: WNL HENT: Yes: WNL Neck: Yes: WNL Cardiovascular: Yes: WNL Respiratory: Yes: WNL Gastrointestinal: Yes: Normal Bowel Sounds ...Rectal Exam: Yes: Deferred Genitourinary: Yes: WNL Musculoskeletal: Yes: WNL Extremities: Yes: WNL Edema: No Neurological: Yes: Alert ...Motor Strength: WNL Labs: CBC, BMP 09/28/18 12:30 09/28/18 12:30 INR, PTT INR 1.09 (0.83-1.09) 09/30/18 06:20 Assessment/Plan Cleared for EGD
[2018-09-30] MEDS ORDERED: ONDANSETRON 4 MG/2 ML VIAL IVPB PRN (09:33)
[2018-09-30] MEDS: carBAMazepine XR 400 MG TAB.ER.12H PO SCH ×2 (10:09→21:30)
[2018-09-30] MEDS: DIVALPROEX SODIUM 500 MG TABLET E.C. PO SCH ×2 (10:09→21:30)
[2018-09-30] MEDS: TOPIRAMATE 100 MG TABLET PO SCH ×2 (10:09→21:30)
[2018-09-30] MEDS: cloNIDine HCL 0.1 MG TABLET PO SCH (10:13)
[2018-09-30] MEDS: TAMSULOSIN HCL 0.4 MG CAP PO SCH (10:14)
[2018-09-30] MEDS: amLODIPine BESYLATE 10 MG TABLET (FP) PO SCH (10:14)
--- NOTE | 2018-09-30 12:46 | EKG ---
Test Reason : Blood Pressure : / mmHG Vent. Rate : 064 BPM Atrial Rate : 064 BPM P-R Int : 192 ms QRS Dur : 084 ms QT Int : 396 ms P-R-T Axes : 058 024 037 degrees QTc Int : 408 ms NORMAL SINUS RHYTHM NORMAL ECG WHEN COMPARED WITH ECG OF 25-MAY-2015 15:56, PREMATURE SUPRAVENTRICULAR COMPLEXES ARE NO LONGER PRESENT NONSPECIFIC T WAVE ABNORMALITY NO LONGER EVIDENT IN INFERIOR LEADS Confirmed by RAMAN SPANN, KARISSA ([id number]) on 09/30/2018 12:45:52 PM Referred By: ASHLEY FOX Confirmed By:KARISSA CAMARGO MD
--- NOTE | 2018-09-30 15:14 | PN ---
Progress Note (short form) - Note Progress Note: GI Procedure NOte: Please see scanned EGD report. Large prepyloric ulcer found which is suspected to be malignant. Biopsies were taken. The patient, family and Dr Whitman were informed and an oncology and surgical consultation have been ordered. Can advance diet as tolerated. Dr Sherwood will be covering this weekend . Please call him as needed. Problem List - Problems (1) Duodenitis Code(s): K29.80 - DUODENITIS WITHOUT BLEEDING (2) Abnormal liver function tests Code(s): R94.5 - ABNORMAL RESULTS OF LIVER FUNCTION STUDIES (3) Fatty liver Code(s): K76.0 - FATTY (CHANGE OF) LIVER, NOT ELSEWHERE CLASSIFIED (4) Seizure disorder Code(s): G40.909 - EPILEPSY, UNSP, NOT INTRACTABLE, WITHOUT STATUS EPILEPTICUS (5) Diverticulosis Code(s): K57.90 - DVRTCLOS OF INTEST, PART UNSP, W/O PERF OR ABSCESS W/O BLEED
--- NOTE | 2018-09-30 16:21 | CONSULT ---
Consultation: REQUESTING PROVIDER: Dr. Whitman CONSULT REQUEST: We have been asked to medically evaluate this patient for concerning ulcerative lesion. HISTORY OF PRESENT ILLNESS: This is a 68 year old male with a history of epilepsy on AE, HTN, BPH, who presents with a three week history of RLQ abdominal pain that radiates to the back. States he cannot lay on the affected side due to pain. Eating solid and liquids provokes nausea and bloating. No fevers, chills, n, v, d, or wt loss. CT abdomen revealed thickening of the duodenal wall, in particular its horizontal/third portion that is inseparable from uncinate process of the pancreatic head consistent with duodenitis. Endoscopy done today showing a large prepyloric ulcer found which is suspected to be malignant. PMH: BPH, epilepsy, htn PSH: appendectomy Social: quit smoking in 1981; prior smoked seldom for 5 years; denies alcohol use; no drug use REVIEW OF SYSTEMS: CONSTITUTIONAL: Absent: fever, chills, diaphoresis, generalized weakness, malaise, loss of appetite, weight change HEENT: Absent: rhinorrhea, nasal congestion, throat pain, throat swelling, difficulty swallowing, mouth swelling, ear pain, eye pain, visual changes CARDIOVASCULAR: Absent: chest pain, syncope, palpitations, irregular heart rate, lightheadedness , peripheral edema RESPIRATORY: Absent: cough, shortness of breath, dyspnea with exertion, orthopnea, wheezing, stridor, hemoptysis GASTROINTESTINAL: Positive; abdominal pain, abdominal distension, nausea, Absent: vomiting, diarrhea, constipation, melena, hematochezia GENITOURINARY: Absent: dysuria, frequency, urgency, hesitancy, hematuria, flank pain, genital pain MUSCULOSKELETAL: Absent: myalgia, arthralgia, joint swelling, back pain, neck pain SKIN: Absent: rash, itching, pallor HEMATOLOGIC/IMMUNOLOGIC: Absent: easy bleeding, easy bruising, lymphadenopathy, frequent infections ENDOCRINE: Absent: unexplained weight gain, unexplained weight loss, heat intolerance, cold intolerance NEUROLOGIC: Absent: headache, focal weakness or paresthesias, dizziness, unsteady gait, seizure, mental status changes, bladder or bowel incontinence PSYCHIATRIC: Absent: anxiety, depression, suicidal or homicidal ideation, hallucinations. PHYSICAL EXAMINATION Vital Signs - 24 hr 09/29/18 09/29/18 09/30/18 18:25 21:00 06:00 Temperature 97.5 F L 98.0 F Pulse Rate 68 64 Respiratory 18 18 18 Rate Blood Pressure 138/89 142/77 O2 Sat by Pulse 97 Oximetry (%) 09/30/18 09/30/18 09/30/18 09:00 10:20 13:30 Temperature 98.7 F 98.1 F Pulse Rate 78 63 Respiratory 18 18 18 Rate Blood Pressure 156/95 143/83 O2 Sat by Pulse 98 Oximetry (%) 09/30/18 09/30/18 09/30/18 14:04 14:19 14:35 Temperature 97.5 F L Pulse Rate 72 71 68 Respiratory 20 16 18 Rate Blood Pressure 129/63 122/62 126/69 O2 Sat by Pulse 100 100 98 Oximetry (%) 09/30/18 09/30/18 14:37 15:44 Temperature 98 F Pulse Rate 68 58 L Respiratory 18 18 Rate Blood Pressure 126/69 142/74 O2 Sat by Pulse 98 98 Oximetry (%) GENERAL: Awake, alert, and fully oriented, in no acute distress. HEAD: Normal with no signs of trauma. EYES: Pupils equal, round and reactive to light, extraocular movements intact, sclera anicteric, conjunctiva clear. No lid lag. THROAT: oropharynx clear without exudates. Moist mucous membranes. NECK: Normal range of motion, supple without lymphadenopathy, JVD, or masses. LUNGS: decreased breath sounds, no crackles HEART: Regular rate and rhythm, normal S1 and S2 without murmur, rub or gallop. ABDOMEN: distended; tenderness to light tough and palpation of RU and RL quadrant Breast and axilla; negative for masses/discharge MUSCULOSKELETAL: Normal range of motion at all joints. No bony deformities or tenderness. No CVA tenderness. UPPER EXTREMITIES: 2+ pulses, warm, well-perfused. No cyanosis. No clubbing. Cap refill <2 seconds. No peripheral edema. LOWER EXTREMITIES: 2+ pulses, warm, well-perfused. No calf tenderness. No peripheral edema. NEUROLOGICAL: Cranial nerves II-XII intact. Normal speech. PSYCHIATRIC: Cooperative. Good eye contact. Appropriate mood and affect. SKIN: Warm, dry, normal turgor, no rashes or lesions noted. Laboratory Results - last 24 hr 09/30/18 09/30/18 06:20 06:20 PT with INR 12.90 INR 1.09 Total Bilirubin 0.6 Direct Bilirubin 0.2 AST 43 H ALT 51 Alkaline Phosphatase 152 H C-Reactive Protein 4.3 H Total Protein 7.3 Albumin 3.1 L Total Amylase 141 H Lipase 375 Active Medications Generic Name Dose Route Start Last Admin Trade Name Freq PRN Reason Stop Dose Admin Al Hydroxide/Mg Hydroxide 30 ml 09/30/18 18:00 Mylanta Oral Suspension - PO Q6HPO [facility] Amlodipine Besylate 10 mg 09/29/18 10:00 09/30/18 10:14 Norvasc - PO 10 mg DAILY [facility] Administration Atorvastatin Calcium 40 mg 09/28/18 22:30 09/29/18 21:27 Lipitor - PO 40 mg HS [facility] Administration Carbamazepine 400 mg 09/28/18 22:30 09/30/18 10:09 Tegretol Xr - PO 400 mg BID [facility] Administration Clonidine 0.2 mg 09/29/18 10:00 09/30/18 10:13 Catapres - PO 0.2 mg DAILY [facility] Administration Cyclobenzaprine HCl 5 mg 09/28/18 22:24 Cyclobenzaprine Hcl PO Q8H PRN MUSCLE SPASMS Divalproex Sodium 1,000 mg 09/28/18 22:30 09/30/18 10:09 Depakote - PO 1,000 mg BID [facility] Administration Potassium Chloride/Dextrose/Sod Cl 10 meq in 1,000 mls @ 100 mls/hr 09/28/18 22:30 09/30/18 07:05 D5-1/2ns+10 Meq Kcl - IV 100 mls/hr ASDIR [facility] Administration Losartan Potassium 100 mg 09/29/18 10:00 09/29/18 09:19 Cozaar - PO 100 mg BID [facility] Administration Meperidine HCl 50 mg 09/28/18 22:42 09/29/18 19:04 Demerol Injection - IM 50 mg Q6H PRN Administration PAIN LEVEL 6-10 Ondansetron HCl 4 mg 09/30/18 09:33 Zofran Injection IVPB Q8H PRN NAUSEA AND/OR VOMITING Pantoprazole Sodium 40 mg 09/30/18 22:00 Protonix Iv IVPUSH BID [facility] Tamsulosin HCl 0.4 mg 09/29/18 08:30 09/30/18 10:14 Flomax - PO 0.4 mg DAILY@0830 [facility] Administration Topiramate 100 mg 02/13/19 22:30 09/30/18 10:09 Topamax - PO 100 mg BID [facility] Administration CT abdomen : Impression Impression: There is significant thickening of the duodenal wall, in particular its horizontal/third portion that is inseparable from uncinate process of the pancreatic head consistent with duodenitis, inflammatory versus infectious. There is also suggestion of thickening of the distal gastric antrum wall, inflammatory versus infectious. Trace of free fluid seen along the inferior medial margin of the liver. Mesenteric as well as para-aortic lymph nodes measuring up to 1.5 cm which are nonspecific and may be postinfectious. Over distended gallbladder without intraluminal stones or wall thickening. Fatty liver mainly involving the right hepatic lobe with a 1 cm low-attenuation lesion in the left hepatic lobe Nonvisualization of the appendix ASSESSMENT/PLAN: This is a 68 year old male with a history of epilepsy, htn, bph who presents with bloating and RLQ pain, found to have a large prepyloric ulcer ; suspect malignancy. Abdominal pain Large prepyloric ulcer -s/p endoscopy; report appreciated; suspect malignancy -po intake as tolerated; IVF -staging CT chest/abd/pelvis -tissue biopsy pending Dispo: We will continue to follow the patient. Thank you for this consultative opportunity. Visit type - Emergency Visit Emergency Visit: Yes ED Registration Date: 09/28/18 Care time: The patient presented to the Emergency Department on the above date and was hospitalized for further evaluation of their emergent condition. - New Patient This patient is new to me today: Yes Date on this admission: 09/30/18 - Critical Care Critical Care patient: No
--- NOTE | 2018-09-30 17:49 | PN ---
Teaching Attending Note Name of Resident: Bekah Abarca ATTENDING PHYSICIAN STATEMENT I saw and evaluated the patient. I reviewed the resident's note and discussed the case with the resident. I agree with the resident's findings and plan as documented. SUBJECTIVE: Patient seen and examined 68 year old presented with several week history of early satiety , pain in RUQ exacerbated by lying on right Abnormal CT / duodenal lesion Upper endoscopy - large ulcerating gastric mass- biopsies pending PMH- HBP, gout seizure disorder Surg- appendectomy Allergies - macrobid, biaxin ROS- abdominal pain on right and laying on right side , weight loss 6 lbs, early satiety FH - sister with cancer -? 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, minimal ETOH , discontinued in 70's Last Vital Signs Temp Pulse Resp BP Pulse Ox 98 F 58 L 18 142/74 98 09/30/18 15:44 09/30/18 15:44 09/30/18 15:44 09/30/18 15:44 09/30/18 15:44 HEENT: AVILA, EOM Intact Oropharynx: No thrush, No mucositis Neck: Supple Nodes: Without adenopathy Breasts: Without masses Cor: RSR, No murmurs, No gallops Lungs: Clear to P&A testes descended , uncircumcised Abd: Soft, Normal bowel sounds, No organomegaly, RUQ pain Ext:No significant edema Skin: No rashes, Integument intact CBC, BMP 09/28/18 12:30 09/28/18 12:30 Current Medications Generic Name Dose Route Start Last Admin Trade Name Freq PRN Reason Stop Dose Admin Al Hydroxide/Mg Hydroxide 30 ml 09/30/18 18:00 Mylanta Oral Suspension - PO Q6HPO [facility] Amlodipine Besylate 10 mg 09/29/18 10:00 09/30/18 10:14 Norvasc - PO 10 mg DAILY [facility] Administration Atorvastatin Calcium 40 mg 09/28/18 22:30 09/29/18 21:27 Lipitor - PO 40 mg HS [facility] Administration Carbamazepine 400 mg 09/28/18 22:30 09/30/18 10:09 Tegretol Xr - PO 400 mg BID [facility] Administration Clonidine 0.2 mg 09/29/18 10:00 09/30/18 10:13 Catapres - PO 0.2 mg DAILY [facility] Administration Cyclobenzaprine HCl 5 mg 09/28/18 22:24 Cyclobenzaprine Hcl PO Q8H PRN MUSCLE SPASMS Divalproex Sodium 1,000 mg 09/28/18 22:30 09/30/18 10:09 Depakote - PO 1,000 mg BID [facility] Administration Potassium Chloride/Dextrose/Sod Cl 10 meq in 1,000 mls @ 100 mls/hr 09/28/18 22:30 09/30/18 07:05 D5-1/2ns+10 Meq Kcl - IV 100 mls/hr ASDIR [facility] Administration Losartan Potassium 100 mg 09/29/18 10:00 09/29/18 09:19 Cozaar - PO 100 mg BID [facility] Administration Meperidine HCl 50 mg 09/28/18 22:42 09/29/18 19:04 Demerol Injection - IM 50 mg Q6H PRN Administration PAIN LEVEL 6-10 Ondansetron HCl 4 mg 09/30/18 09:33 Zofran Injection IVPB Q8H PRN NAUSEA AND/OR VOMITING Pantoprazole Sodium 40 mg 09/30/18 22:00 Protonix Iv IVPUSH BID [facility] Tamsulosin HCl 0.4 mg 09/29/18 08:30 09/30/18 10:14 Flomax - PO 0.4 mg DAILY@0830 [facility] Administration Topiramate 100 mg 09/28/18 22:30 09/30/18 10:09 Topamax - PO 100 mg BID [facility] Administration Impression: GASTRIC ULCER- await biopsy change demerol Chest CT CEA OBJECTIVE: ASSESSMENT AND PLAN:
[2018-09-30] MEDS: MAG HYDROX/AL HYDROX/SIMETH 30 ML UNIT-DOSE CUP PO SCH ×2 (18:30→23:12)
[2018-09-30] MEDS: ATORVASTATIN CA 40 MG TABLET (FP) PO SCH (21:30)
[2018-09-30] MEDS: PANTOPRAZOLE SODIUM 40 MG VIAL IVPUSH SCH (21:31)
[2018-10-01 02:13] LABS: HBSAG SCREEN Negative (Negative); HEP B CORE AB, TOT Negative (Negative)
[2018-10-01] MEDS: D5-1/2NS+10 MEQ KCL - 10 MEQ/1,000 ML INFUS.BAG IV SCH ×2 (05:16→23:17)
[2018-10-01] MEDS: MAG HYDROX/AL HYDROX/SIMETH 30 ML UNIT-DOSE CUP PO SCH ×4 (05:16→23:17)
[2018-10-01 07:52] LABS: BASO % 0.5 % (0-2.0); HEMATOCRIT 44.7 % (35.4-49); MCH 32.3 pg (25.7-33.7); MCHC 33.7 g/dl (32.0-35.9); MEAN CELL VOLUME 95.9 fl (80-96); MEAN PLT VOLUME 10.7 fl (7.5-11.1); MONO % 17.1 % (3.8-10.2); NEUT % 52.4 % (42.8-82.8); PLATELET COUNT 161 K/MM3 (134-434); RBC 4.66 M/mm3 (4.00-5.60); RDW 13.7 % (11.9-15.9); WHITE BLOOD COUNT 5.2 K/mm3 (4.0-10.0)
[2018-10-01 08:57] LABS: ALBUMIN 3.3 g/dl (3.4-5.0); ALK PHOS 168 U/L (45-117); ANION GAP 7 MMOL/L (8-16); BILIRUBIN,DIRECT 0.2 mg/dL (0.0-0.2); BILIRUBIN,TOTAL 0.3 mg/dL (0.2-1); BLOOD UREA NITROGEN 10 mg/dL (7-18); CALCIUM 8.2 mg/dL (8.5-10.1); CHLORIDE 108 mmol/L (98-107); CO2 22 mmol/L (21-32); CREATININE 1.1 mg/dL (0.55-1.3); GLUCOSE,RANDOM 98 mg/dL (74-106); SGOT/AST 38 U/L (15-37); SGPT/ALT 44 U/L (13-61); SODIUM 137 mmol/L (136-145); TOT PROT 7.5 g/dl (6.4-8.2)
[2018-10-01] MEDS ORDERED: PT OWN MED DRAWER 7, Y5N ONE ×3 (09:03→21:14)
--- NOTE | 2018-10-01 09:28 | PN ---
Progress Note, Physician Chief Complaint: Feels better History of Present Illness: Case discussed with Dr Ruiz Large pre pyloric ulcer,suspect malignency Evaluated by Dr Gramajo Case discussed with family - Current Medication List Current Medications: Active Medications Al Hydroxide/Mg Hydroxide (Mylanta Oral Suspension -) 30 ml PO Q6HPO [facility] Last Admin: 10/01/18 05:16 Dose: 30 ml Amlodipine Besylate (Norvasc -) 10 mg PO DAILY [facility] Last Admin: 09/30/18 10:14 Dose: 10 mg Atorvastatin Calcium (Lipitor -) 40 mg PO HS [facility] Last Admin: 09/30/18 21:30 Dose: 40 mg Carbamazepine (Tegretol Xr -) 400 mg PO BID [facility] Last Admin: 09/30/18 21:30 Dose: 400 mg Clonidine (Catapres -) 0.2 mg PO DAILY [facility] Last Admin: 09/30/18 10:13 Dose: 0.2 mg Cyclobenzaprine HCl (Cyclobenzaprine Hcl) 5 mg PO Q8H PRN PRN Reason: MUSCLE SPASMS Divalproex Sodium (Depakote -) 1,000 mg PO BID [facility] Last Admin: 09/30/18 21:30 Dose: 1,000 mg Potassium Chloride/Dextrose/Sod Cl (D5-1/2ns+10 Meq Kcl -) 10 meq in 1,000 mls @ 100 mls/hr IV ASDIR [facility] Last Admin: 10/01/18 05:16 Dose: 100 mls/hr Losartan Potassium (Cozaar -) 100 mg PO BID [facility] Last Admin: 09/29/18 09:19 Dose: 100 mg Meperidine HCl (Demerol Injection -) 50 mg IM Q6H PRN PRN Reason: PAIN LEVEL 6-10 Last Admin: 09/29/18 19:04 Dose: 50 mg Ondansetron HCl (Zofran Injection) 4 mg IVPB Q8H PRN PRN Reason: NAUSEA AND/OR VOMITING Pantoprazole Sodium (Protonix Iv) 40 mg IVPUSH BID [facility] Last Admin: 09/30/18 21:31 Dose: 40 mg Tamsulosin HCl (Flomax -) 0.4 mg PO DAILY@0830 [facility] Last Admin: 09/30/18 10:14 Dose: 0.4 mg Topiramate (Topamax -) 100 mg PO BID [facility] Last Admin: 09/30/18 21:30 Dose: 100 mg - Objective Vital Signs: Vital Signs Temperature 98.2 F 10/01/18 06:00 Pulse Rate 62 10/01/18 06:00 Respiratory Rate 20 10/01/18 06:00 Blood Pressure 142/78 10/01/18 06:00 O2 Sat by Pulse Oximetry (%) 98 09/30/18 21:00 Constitutional: Yes: No Distress Eyes: Yes: WNL HENT: Yes: WNL Neck: Yes: WNL Cardiovascular: Yes: WNL Respiratory: Yes: Regular Gastrointestinal: Yes: Normal Bowel Sounds ...Rectal Exam: Yes: Deferred Genitourinary: Yes: WNL Labs: CBC, BMP 10/01/18 07:00 10/01/18 07:00 INR, PTT INR 1.09 (0.83-1.09) 09/30/18 06:20 Assessment/Plan DC IV fluids
[2018-10-01] MEDS: cloNIDine HCL 0.1 MG TABLET PO SCH (10:42)
[2018-10-01] MEDS: amLODIPine BESYLATE 10 MG TABLET (FP) PO SCH (10:42)
[2018-10-01] MEDS: TAMSULOSIN HCL 0.4 MG CAP PO SCH (10:43)
[2018-10-01] MEDS: PANTOPRAZOLE SODIUM 40 MG VIAL IVPUSH SCH ×2 (10:43→21:55)
[2018-10-01] MEDS: DIVALPROEX SODIUM 500 MG TABLET E.C. PO SCH ×2 (10:44→21:54)
[2018-10-01] MEDS: carBAMazepine XR 400 MG TAB.ER.12H PO SCH ×2 (10:44→21:55)
[2018-10-01] MEDS: TOPIRAMATE 100 MG TABLET PO SCH ×2 (10:44→21:55)
--- NOTE | 2018-10-01 13:16 | CONSULT ---
Consult Consult Specialty:: Surgery: Referred by:: Dr. Whitman Reason for Consultation:: Abdominal pain, Distal gastric ulcer , suspicious for malignancy. - History of Present Illness Chief Complaint: 68 year old [place] man c/o pain on his right side of abdomen for about one week. Denies any nausea, vomiting, weight loss. patient had colonoscopy yesterday which shows a suspicious , malignantbulcer in the distal third of the stomavh, biopsy report is pending. 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 Cardio/Vascular: Yes: HTN, Hyperlipdemia Gastrointestinal: Yes: Diverticulosis Renal/: Yes: BPH Additional Medical History: Cataracts - Past Surgical History Past Surgical History: Yes: Appendectomy, Colonoscopy - Alcohol/Substance Use Hx Alcohol Use: No History of Substance Use: reports: None - Smoking History Smoking history: Never smoked Aproximately how many cigarettes per day: 0 If you are a former smoker, when did you quit?: 1980 - Social History Usual Living Arrangement: With Spouse ADL: Independent 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 History of Recent Travel: No Home Medications - Allergies Allergies/Adverse Reactions: Allergies Allergy/AdvReac Type Severity Reaction Status Date / Time clarithromycin [From Biaxin] Allergy Verified 09/28/18 20:17 ciprofloxacin [From Cipro] AdvReac Intermediate dizziness Verified 09/28/18 11: 12 nitrofurantoin AdvReac Intermediate Verified 09/29/18 04:44 [From Macrobid] - Home Medications Home Medications: Ambulatory Orders Amlodipine Besylate [Norvasc -] 10 mg PO DAILY 05/25/15 Atorvastatin Ca [Lipitor] 40 mg PO HS 05/25/15 Carbamazepine Xr [Tegretol XR -] 400 mg PO BID 05/25/15 Clonidine HCl 1 mg PO AM 05/25/15 Divalproex [Depakote -] 1,000 mg PO BID 05/25/15 Losartan Potassium [Cozaar] 100 mg PO DAILY 05/25/15 Tamsulosin HCl [Flomax -] 0.4 mg PO BID 05/25/15 Topiramate [Topamax] 100 mg PO BID 05/25/15 Clonidine HCl 0.4 mg PO HS 10/20/16 Cyclobenzaprine HCl [Flexeril -] 5 mg PO TID PRN #12 tablet 09/12/18 Ibuprofen [Motrin -] 600 mg PO TID PRN #21 tablet 09/12/18 Family Disease History - Family Disease History Family Disease History: Diabetes: Father ( 70's was on dialysis), Heart Disease: Mother ( 87 ASHD, s/p CABG), CA: Sister (brain cancer), Other: Brother (lung nodule) Physical Exam Vital Signs: Vital Signs Temperature 98.2 F 10/01/18 06:00 Pulse Rate 62 10/01/18 06:00 Respiratory Rate 20 10/01/18 09:00 Blood Pressure 142/78 10/01/18 06:00 O2 Sat by Pulse Oximetry (%) 98 10/01/18 09:00 Gastrointestinal: Yes: Tenderness (Tender in right flank, with guarding. No nausea, no vomiting. No abdominal distention.) Labs: CBC, BMP 10/01/18 07:00 10/01/18 07:00 Imaging - Results Cat Scan: Report Reviewed (CT scan shows thickening of the stomach and the third portion ofthe duodenum , with enlarged , mesenteric and paraaortic lymph nodes.), Image Reviewed (Ct scan shows tickened distal wall of the stomach and third portion of the duodenum, with some enlarged mesenteric , and paraaortic lymph nodes.) Problem List - Problems (1) Abdominal pain Code(s): R10.9 - UNSPECIFIED ABDOMINAL PAIN Qualifiers: Abdominal location: right upper quadrant Qualified Code(s): R10.11 - Right upper quadrant pain (2) Gastric ulcer Code(s): K25.9 - GASTRIC ULCER, UNSP ACUTE OR CHRONIC, W/O HEMOR OR PERF Qualifiers: Gastric ulcer complication status: without hemorrhage or perforation (3) Essential (primary) hypertension Code(s): I10 - ESSENTIAL (PRIMARY) HYPERTENSION (4) Seizure disorder Code(s): G40.909 - EPILEPSY, UNSP, NOT INTRACTABLE, WITHOUT STATUS EPILEPTICUS Assessment/Plan ] Chart reviewed. Abdominal pain for one week , found to have a prepyloric ulcer , with endoscopic suspicion for malignancy. Pathology pending. Enlarged lymph nodes on CT scan, once patholgy is obtaind, can consider Pet-Ct for staging. If malignant , will consider laparoscopy , peritoneal lavage / cytology for satging. If local T1-2 lesion will plan radical gastrectomy , with R2 resection . If tumor is beyond , wuth barbara involvement will consider , neoadjuvant chemotherapy first. Endoscopic ultrasound may be considered for T staging. Will waitb for pathology report to establish the diagnosis, and further management. Dr. Gramajo's not noted. Pet-Ct after biopsy results. Elevated alkaline phosphatase, lipase, and Ca19-9. CEA pending. ? Alcoholic pancreatitis. Will discuss with Dr. Gramajo once pathology report is obtained . Will obtain abdominal X-ray , to r/o free air.
[2018-10-01 21:12] LABS: TRANSGLUTAMINASE IGA < 2 U/mL (0-3); TRANSGLUTAMINASE IGG < 2 U/mL (0-5)
[2018-10-01] MEDS: ATORVASTATIN CA 40 MG TABLET (FP) PO SCH (21:55)
[2018-10-02] MEDS: MAG HYDROX/AL HYDROX/SIMETH 30 ML UNIT-DOSE CUP PO SCH ×3 (07:03→18:42)
[2018-10-02] MEDS ORDERED: PT OWN MED DRAWER 7, Y5N ONE (10:01)
[2018-10-02] MEDS: PANTOPRAZOLE SODIUM 40 MG VIAL IVPUSH SCH ×2 (10:09→22:46)
[2018-10-02] MEDS: amLODIPine BESYLATE 10 MG TABLET (FP) PO SCH (10:09)
[2018-10-02] MEDS: cloNIDine HCL 0.1 MG TABLET PO SCH (10:09)
[2018-10-02] MEDS: TAMSULOSIN HCL 0.4 MG CAP PO SCH (10:09)
[2018-10-02] MEDS: carBAMazepine XR 400 MG TAB.ER.12H PO SCH ×2 (10:10→22:46)
[2018-10-02] MEDS: TOPIRAMATE 100 MG TABLET PO SCH ×2 (10:10→22:46)
[2018-10-02] MEDS: DIVALPROEX SODIUM 500 MG TABLET E.C. PO SCH ×2 (10:10→22:46)
--- NOTE | 2018-10-02 12:34 | PN ---
Progress Note, Physician - Current Medication List Current Medications: Active Medications Al Hydroxide/Mg Hydroxide (Mylanta Oral Suspension -) 30 ml PO Q6HPO [facility] Last Admin: 10/02/18 07:03 Dose: 30 ml Amlodipine Besylate (Norvasc -) 10 mg PO DAILY [facility] Last Admin: 10/02/18 10:09 Dose: 10 mg Atorvastatin Calcium (Lipitor -) 40 mg PO HS [facility] Last Admin: 10/01/18 21:55 Dose: 40 mg Carbamazepine (Tegretol Xr -) 400 mg PO BID [facility] Last Admin: 10/02/18 10:10 Dose: 400 mg Clonidine (Catapres -) 0.2 mg PO DAILY [facility] Last Admin: 10/02/18 10:09 Dose: 0.2 mg Divalproex Sodium (Depakote -) 1,000 mg PO BID [facility] Last Admin: 10/02/18 10:10 Dose: 1,000 mg Potassium Chloride/Dextrose/Sod Cl (D5-1/2ns+10 Meq Kcl -) 10 meq in 1,000 mls @ 100 mls/hr IV ASDIR [facility] Last Admin: 10/01/18 23:17 Dose: Not Given Losartan Potassium (Cozaar -) 100 mg PO BID [facility] Last Admin: 09/29/18 09:19 Dose: 100 mg Ondansetron HCl (Zofran Injection) 4 mg IVPB Q8H PRN PRN Reason: NAUSEA AND/OR VOMITING Pantoprazole Sodium (Protonix Iv) 40 mg IVPUSH BID [facility] Last Admin: 10/02/18 10:09 Dose: 40 mg Tamsulosin HCl (Flomax -) 0.4 mg PO DAILY@0830 [facility] Last Admin: 10/02/18 10:09 Dose: 0.4 mg Topiramate (Topamax -) 100 mg PO BID [facility] Last Admin: 10/02/18 10:10 Dose: 100 mg - Objective Vital Signs: Vital Signs Temperature 98.2 F 10/02/18 10:26 Pulse Rate 71 10/02/18 10:26 Respiratory Rate 18 10/02/18 10:26 Blood Pressure 145/92 10/02/18 10:26 O2 Sat by Pulse Oximetry (%) 98 10/01/18 09:00 Edema: No Neurological: Yes: Alert Psychiatric: Yes: Alert Labs: CBC, BMP 10/01/18 07:00 10/01/18 07:00 INR, PTT INR 1.09 (0.83-1.09) 09/30/18 06:20 Assessment/Plan path report pending
--- NOTE | 2018-10-02 12:35 | PN ---
Progress Note, Physician Chief Complaint: Feels OK Needs more food History of Present Illness: ava Perkins surgical consult appreciated - Current Medication List Current Medications: Active Medications Al Hydroxide/Mg Hydroxide (Mylanta Oral Suspension -) 30 ml PO Q6HPO [facility] Last Admin: 10/02/18 07:03 Dose: 30 ml Amlodipine Besylate (Norvasc -) 10 mg PO DAILY [facility] Last Admin: 10/02/18 10:09 Dose: 10 mg Atorvastatin Calcium (Lipitor -) 40 mg PO HS [facility] Last Admin: 10/01/18 21:55 Dose: 40 mg Carbamazepine (Tegretol Xr -) 400 mg PO BID [facility] Last Admin: 10/02/18 10:10 Dose: 400 mg Clonidine (Catapres -) 0.2 mg PO DAILY [facility] Last Admin: 10/02/18 10:09 Dose: 0.2 mg Divalproex Sodium (Depakote -) 1,000 mg PO BID [facility] Last Admin: 10/02/18 10:10 Dose: 1,000 mg Potassium Chloride/Dextrose/Sod Cl (D5-1/2ns+10 Meq Kcl -) 10 meq in 1,000 mls @ 100 mls/hr IV ASDIR [facility] Last Admin: 10/01/18 23:17 Dose: Not Given Losartan Potassium (Cozaar -) 100 mg PO BID [facility] Last Admin: 09/29/18 09:19 Dose: 100 mg Ondansetron HCl (Zofran Injection) 4 mg IVPB Q8H PRN PRN Reason: NAUSEA AND/OR VOMITING Pantoprazole Sodium (Protonix Iv) 40 mg IVPUSH BID [facility] Last Admin: 10/02/18 10:09 Dose: 40 mg Tamsulosin HCl (Flomax -) 0.4 mg PO DAILY@0830 [facility] Last Admin: 10/02/18 10:09 Dose: 0.4 mg Topiramate (Topamax -) 100 mg PO BID [facility] Last Admin: 10/02/18 10:10 Dose: 100 mg - Objective Vital Signs: Vital Signs Temperature 98.2 F 10/02/18 10:26 Pulse Rate 71 10/02/18 10:26 Respiratory Rate 18 10/02/18 10:26 Blood Pressure 145/92 10/02/18 10:26 O2 Sat by Pulse Oximetry (%) 98 10/01/18 09:00 Constitutional: Yes: Well Nourished Eyes: Yes: WNL HENT: Yes: WNL Neck: Yes: WNL Cardiovascular: Yes: WNL Respiratory: Yes: WNL Gastrointestinal: Yes: WNL ...Rectal Exam: Yes: Deferred Genitourinary: Yes: WNL Breast(s): Yes: WNL Edema: No Labs: CBC, BMP 10/01/18 07:00 10/01/18 07:00 INR, PTT INR 1.09 (0.83-1.09) 09/30/18 06:20
--- NOTE | 2018-10-02 12:38 | PN ---
Progress Note, Physician - Current Medication List Current Medications: Active Medications Al Hydroxide/Mg Hydroxide (Mylanta Oral Suspension -) 30 ml PO Q6HPO [facility] Last Admin: 10/02/18 07:03 Dose: 30 ml Amlodipine Besylate (Norvasc -) 10 mg PO DAILY [facility] Last Admin: 10/02/18 10:09 Dose: 10 mg Atorvastatin Calcium (Lipitor -) 40 mg PO HS [facility] Last Admin: 10/01/18 21:55 Dose: 40 mg Carbamazepine (Tegretol Xr -) 400 mg PO BID [facility] Last Admin: 10/02/18 10:10 Dose: 400 mg Clonidine (Catapres -) 0.2 mg PO DAILY [facility] Last Admin: 10/02/18 10:09 Dose: 0.2 mg Divalproex Sodium (Depakote -) 1,000 mg PO BID [facility] Last Admin: 10/02/18 10:10 Dose: 1,000 mg Potassium Chloride/Dextrose/Sod Cl (D5-1/2ns+10 Meq Kcl -) 10 meq in 1,000 mls @ 100 mls/hr IV ASDIR [facility] Last Admin: 10/01/18 23:17 Dose: Not Given Losartan Potassium (Cozaar -) 100 mg PO BID [facility] Last Admin: 09/29/18 09:19 Dose: 100 mg Ondansetron HCl (Zofran Injection) 4 mg IVPB Q8H PRN PRN Reason: NAUSEA AND/OR VOMITING Pantoprazole Sodium (Protonix Iv) 40 mg IVPUSH BID [facility] Last Admin: 10/02/18 10:09 Dose: 40 mg Tamsulosin HCl (Flomax -) 0.4 mg PO DAILY@0830 [facility] Last Admin: 10/02/18 10:09 Dose: 0.4 mg Topiramate (Topamax -) 100 mg PO BID [facility] Last Admin: 10/02/18 10:10 Dose: 100 mg - Objective Vital Signs: Vital Signs Temperature 98.2 F 10/02/18 10:26 Pulse Rate 71 10/02/18 10:26 Respiratory Rate 18 10/02/18 10:26 Blood Pressure 145/92 10/02/18 10:26 O2 Sat by Pulse Oximetry (%) 98 10/01/18 09:00 Labs: CBC, BMP 10/01/18 07:00 10/01/18 07:00 INR, PTT INR 1.09 (0.83-1.09) 09/30/18 06:20 Problem List - Problems (1) Abdominal pain Code(s): R10.9 - UNSPECIFIED ABDOMINAL PAIN Qualifiers: Abdominal location: right upper quadrant Qualified Code(s): R10.11 - Right upper quadrant pain (2) Gastric ulcer Code(s): K25.9 - GASTRIC ULCER, UNSP ACUTE OR CHRONIC, W/O HEMOR OR PERF Qualifiers: Gastric ulcer complication status: without hemorrhage or perforation (3) Essential (primary) hypertension Code(s): I10 - ESSENTIAL (PRIMARY) HYPERTENSION (4) Seizure disorder Code(s): G40.909 - EPILEPSY, UNSP, NOT INTRACTABLE, WITHOUT STATUS EPILEPTICUS Assessment/Plan Surgery: Patient has no abdominal pain. Abdomen is soft , not tender. Pathology pending. CT chest is done, report pending. Abdominal CT suggests some perigastric lymph niodes. Consider PET-CT scan.
[2018-10-02] MEDS ORDERED: MEPERIDINE HCL CARPU-JECT 25 MG/1 ML DISP.SYRIN IM ONE (20:45)
[2018-10-02] MEDS: ATORVASTATIN CA 40 MG TABLET (FP) PO SCH (22:46)
[2018-10-03] MEDS: MAG HYDROX/AL HYDROX/SIMETH 30 ML UNIT-DOSE CUP PO SCH ×4 (00:30→18:12)
[2018-10-03] MEDS ORDERED: PT OWN MED DRAWER 7, Y5N ONE (09:04)
[2018-10-03] MEDS: PANTOPRAZOLE SODIUM 40 MG VIAL IVPUSH SCH ×2 (09:47→22:38)
[2018-10-03] MEDS: TAMSULOSIN HCL 0.4 MG CAP PO SCH (09:47)
[2018-10-03] MEDS: cloNIDine HCL 0.1 MG TABLET PO SCH (09:47)
[2018-10-03] MEDS: amLODIPine BESYLATE 10 MG TABLET (FP) PO SCH (09:47)
[2018-10-03] MEDS: carBAMazepine XR 400 MG TAB.ER.12H PO SCH ×2 (09:48→22:37)
[2018-10-03] MEDS: DIVALPROEX SODIUM 500 MG TABLET E.C. PO SCH ×2 (09:48→22:37)
[2018-10-03] MEDS: TOPIRAMATE 100 MG TABLET PO SCH ×2 (09:48→22:37)
[2018-10-03] MEDS ORDERED: ACETAMINOPHEN 500 MG TABLET (FP) PO ONE (10:00)
[2018-10-03] MEDS ORDERED: oxyCODONE HCL 5 MG TABLET PO PRN (13:22)
--- NOTE | 2018-10-03 13:30 | PN ---
Progress Note (short form) - Note Progress Note: Patient seen and examined Complains of right sided abdominal pain Oxycontin ordered and breakthrough oxycodone ordered Local lidocaine patch ordered Last Vital Signs Temp Pulse Resp BP Pulse Ox 98.0 F 84 20 157/100 98 10/03/18 06:00 10/03/18 10:04 10/03/18 10:04 10/03/18 10:04 10/01/18 09:00 HEENT: AVILA, EOM Intact Oropharynx: No thrush, No mucositis Cor: RSR, No murmurs, No gallops Lungs: Clear to P&A Abd: Soft, Normal bowel sounds, No organomegaly, RUQ pains with local tenderness Ext:No significant edema Skin: No rashes, Integument intact CBC, BMP 10/01/18 07:00 10/01/18 07:00 Current Medications Generic Name Dose Route Start Last Admin Trade Name Freq PRN Reason Stop Dose Admin Al Hydroxide/Mg Hydroxide 30 ml 09/30/18 18:00 10/03/18 05:50 Mylanta Oral Suspension - PO 30 ml Q6HPO [facility] Administration Amlodipine Besylate 10 mg 09/29/18 10:00 10/03/18 09:47 Norvasc - PO 10 mg DAILY [facility] Administration Atorvastatin Calcium 40 mg 09/28/18 22:30 10/02/18 22:46 Lipitor - PO 40 mg HS [facility] Administration Carbamazepine 400 mg 09/28/18 22:30 10/03/18 09:48 Tegretol Xr - PO 400 mg BID [facility] Administration Clonidine 0.2 mg 09/29/18 10:00 10/03/18 09:47 Catapres - PO 0.2 mg DAILY [facility] Administration Divalproex Sodium 1,000 mg 09/28/18 22:30 10/03/18 09:48 Depakote - PO 1,000 mg BID [facility] Administration Lidocaine 1 patch 10/03/18 13:30 Lidoderm Patch - TP DAILY [facility] Losartan Potassium 100 mg 09/29/18 10:00 09/29/18 09:19 Cozaar - PO 100 mg BID [facility] Administration Miscellaneous 1 each 10/03/18 22:00 Lidoderm Patch Removal MC DAILY@2200 [facility] Ondansetron HCl 4 mg 09/30/18 09:33 Zofran Injection IVPB Q8H PRN NAUSEA AND/OR VOMITING Oxycodone HCl 10 mg 10/03/18 10:00 Oxycontin - PO BID [facility] Oxycodone HCl 5 mg 10/03/18 13:22 Roxicodone - PO Q4H PRN PAIN LEVEL 4 - 6 Pantoprazole Sodium 40 mg 09/30/18 22:00 10/03/18 09:47 Protonix Iv IVPUSH 40 mg BID [facility] Administration Tamsulosin HCl 0.4 mg 09/29/18 08:30 10/03/18 09:47 Flomax - PO 0.4 mg DAILY@0830 [facility] Administration Topiramate 100 mg 09/28/18 22:30 10/03/18 09:48 Topamax - PO 100 mg BID [facility] Administration Impression: Awaiting path of gastric ulcer biopsies Agree with Dr. Morris's assessment PET-CT in view of worrisome perigastric nodes Laparoscopic approach to biopsy nodes, look under diaphragm and look for peritoneal mets. If positive , - neoadjuvant chemotherapy x 3 cycles followed by surgery and completion chemotherapy post op. If negative can approach surgically upfront.
[2018-10-03] MEDS: oxyCODONE HCL 10 MG SUSTAINED ACTING TABLET PO SCH ×2 (13:49→22:37)
[2018-10-03] MEDS: LIDOCAINE 5% TOPICAL PATCH TP SCH (13:49)
--- NOTE | 2018-10-03 15:20 | PN ---
Progress Note, Physician Chief Complaint: C/O Right upper quadrant abdominal pain , radiating to the back. Abdomen is soft. Pathology : pending. Agree with Dr. Gramajo's note. Will complete staging after pathology. - Current Medication List Current Medications: Active Medications Al Hydroxide/Mg Hydroxide (Mylanta Oral Suspension -) 30 ml PO Q6HPO [facility] Last Admin: 10/03/18 13:48 Dose: Not Given Amlodipine Besylate (Norvasc -) 10 mg PO DAILY [facility] Last Admin: 10/03/18 09:47 Dose: 10 mg Atorvastatin Calcium (Lipitor -) 40 mg PO HS [facility] Last Admin: 10/02/18 22:46 Dose: 40 mg Carbamazepine (Tegretol Xr -) 400 mg PO BID [facility] Last Admin: 10/03/18 09:48 Dose: 400 mg Clonidine (Catapres -) 0.2 mg PO DAILY [facility] Last Admin: 10/03/18 09:47 Dose: 0.2 mg Divalproex Sodium (Depakote -) 1,000 mg PO BID [facility] Last Admin: 10/03/18 09:48 Dose: 1,000 mg Lidocaine (Lidoderm Patch -) 1 patch TP DAILY [facility] Last Admin: 10/03/18 13:49 Dose: 1 patch Losartan Potassium (Cozaar -) 100 mg PO BID [facility] Last Admin: 09/29/18 09:19 Dose: 100 mg Miscellaneous (Lidoderm Patch Removal) 1 each MC DAILY@2200 [facility] Ondansetron HCl (Zofran Injection) 4 mg IVPB Q8H PRN PRN Reason: NAUSEA AND/OR VOMITING Oxycodone HCl (Oxycontin -) 10 mg PO BID [facility] Last Admin: 10/03/18 13:49 Dose: 10 mg Oxycodone HCl (Roxicodone -) 5 mg PO Q4H PRN PRN Reason: PAIN LEVEL 4 - 6 Pantoprazole Sodium (Protonix Iv) 40 mg IVPUSH BID [facility] Last Admin: 10/03/18 09:47 Dose: 40 mg Tamsulosin HCl (Flomax -) 0.4 mg PO DAILY@0830 [facility] Last Admin: 10/03/18 09:47 Dose: 0.4 mg Topiramate (Topamax -) 100 mg PO BID [facility] Last Admin: 10/03/18 09:48 Dose: 100 mg - Objective Vital Signs: Vital Signs Temperature 98.0 F 10/03/18 06:00 Pulse Rate 84 10/03/18 10:04 Respiratory Rate 20 10/03/18 10:04 Blood Pressure 157/100 10/03/18 10:04 O2 Sat by Pulse Oximetry (%) 98 10/01/18 09:00 Labs: CBC, BMP 10/01/18 07:00 10/01/18 07:00 INR, PTT INR 1.09 (0.83-1.09) 09/30/18 06:20 Problem List - Problems (1) Abdominal pain Code(s): R10.9 - UNSPECIFIED ABDOMINAL PAIN Qualifiers: Abdominal location: right upper quadrant Qualified Code(s): R10.11 - Right upper quadrant pain (2) Gastric ulcer Code(s): K25.9 - GASTRIC ULCER, UNSP ACUTE OR CHRONIC, W/O HEMOR OR PERF Qualifiers: Gastric ulcer complication status: without hemorrhage or perforation (3) Essential (primary) hypertension Code(s): I10 - ESSENTIAL (PRIMARY) HYPERTENSION (4) Seizure disorder Code(s): G40.909 - EPILEPSY, UNSP, NOT INTRACTABLE, WITHOUT STATUS EPILEPTICUS
[2018-10-03 19:17] LABS: URINE APPEARANCE CLEAR; URINE BILIRUBIN NEGATIVE (<2.0 mg/dL); URINE COLOR AMBER; URINE GLUCOSE (UA) NEGATIVE (NEGATIVE); URINE KETONE NEGATIVE (NEGATIVE); URINE LEUK ESTERASE NEGATIVE (NEGATIVE); URINE NITRITE NEGATIVE (NEGATIVE); URINE PROTEIN 1+ (NEGATIVE); URINE UROBILINOGEN NEGATIVE mg/dL (0.2-1.0)
[2018-10-03 19:24] LABS: EPI CELLS RARE /HPF (FEW); URINE MUCUS RARE
--- NOTE | 2018-10-03 21:01 | PN ---
GI Progress Note Subjective: GI NOte: Tolerating diet better but appetite is subpar. Pain is only minimally improved. No vomiting - Objective Vital Signs: Vital Signs Temperature 98.4 F 10/03/18 18:00 Pulse Rate 60 10/03/18 18:00 Respiratory Rate 20 10/03/18 18:00 Blood Pressure 138/82 10/03/18 18:00 O2 Sat by Pulse Oximetry (%) 98 10/01/18 09:00 Laboratory Tests 09/30/18 09/30/18 10/01/18 06:20 06:20 07:00 C-Reactive Protein 4.3 H Carcinoembryonic Ag 4.4 CA 19-9 Antigen 39 H Gastrin 47 Constitutional: Anxious ...Auscultate: Yes: Normoactive Bowel Sounds ...Palpate: Yes: Soft, Other (mild right epigstric tenderness) Labs: CBC, BMP 10/01/18 07:00 10/01/18 07:00 INR, PTT INR 1.09 (0.83-1.09) 09/30/18 06:20 Assessment/Plan Suspect malignant gastric ulcer Reactive hepatopathy vs [place] Diverticulosis Plan: Await path Continue PPI Chronic liver disease screening pending Oncology consult is appreciated Problem List - Problems (1) Duodenitis Code(s): K29.80 - DUODENITIS WITHOUT BLEEDING (2) Abnormal liver function tests Code(s): R94.5 - ABNORMAL RESULTS OF LIVER FUNCTION STUDIES (3) Fatty liver Code(s): K76.0 - FATTY (CHANGE OF) LIVER, NOT ELSEWHERE CLASSIFIED (4) Seizure disorder Code(s): G40.909 - EPILEPSY, UNSP, NOT INTRACTABLE, WITHOUT STATUS EPILEPTICUS (5) Diverticulosis Code(s): K57.90 - DVRTCLOS OF INTEST, PART UNSP, W/O PERF OR ABSCESS W/O BLEED
[2018-10-03] MEDS: ATORVASTATIN CA 40 MG TABLET (FP) PO SCH (22:37)
[2018-10-03] MEDS: LIDOCAINE PATCH REMOVAL MC SCH (22:38)
[2018-10-04] MEDS: MAG HYDROX/AL HYDROX/SIMETH 30 ML UNIT-DOSE CUP PO SCH ×3 (06:04→18:39)
[2018-10-04] MEDS: TAMSULOSIN HCL 0.4 MG CAP PO SCH (08:25)
[2018-10-04 08:54] LABS: ALPHA 2 MACROGLOBULINS,QN 164 mg/dL (110-276); ALT(SGPT)P5P 49 IU/L (0-55); CHOLESTEROL TOTAL 152 mg/dL (100-199); GGT= 293 IU/L (0-65); GLUCOSE SERUM 107 mg/dL (65-99); HEIGHT 74 in (.); WEIGHT- 252 LBS (.)
--- NOTE | 2018-10-04 09:00 | PN ---
Progress Note, Physician Chief Complaint: Pain better History of Present Illness: S/P pre pyloric ulcer biopsy Awaiting path reports - Current Medication List Current Medications: Active Medications Al Hydroxide/Mg Hydroxide (Mylanta Oral Suspension -) 30 ml PO TID@0600,1200, 1800 [facility] Last Admin: 10/04/18 06:04 Dose: 30 ml Amlodipine Besylate (Norvasc -) 10 mg PO DAILY [facility] Last Admin: 10/03/18 09:47 Dose: 10 mg Atorvastatin Calcium (Lipitor -) 40 mg PO HS [facility] Last Admin: 10/03/18 22:37 Dose: 40 mg Carbamazepine (Tegretol Xr -) 400 mg PO BID [facility] Last Admin: 10/03/18 22:37 Dose: 400 mg Clonidine (Catapres -) 0.2 mg PO DAILY [facility] Last Admin: 10/03/18 09:47 Dose: 0.2 mg Divalproex Sodium (Depakote -) 1,000 mg PO BID [facility] Last Admin: 10/03/18 22:37 Dose: 1,000 mg Lidocaine (Lidoderm Patch -) 1 patch TP DAILY [facility] Last Admin: 10/03/18 13:49 Dose: 1 patch Losartan Potassium (Cozaar -) 100 mg PO BID [facility] Last Admin: 09/29/18 09:19 Dose: 100 mg Miscellaneous (Lidoderm Patch Removal) 1 each MC DAILY@2200 [facility] Last Admin: 10/03/18 22:38 Dose: 1 each Ondansetron HCl (Zofran Injection) 4 mg IVPB Q8H PRN PRN Reason: NAUSEA AND/OR VOMITING Oxycodone HCl (Oxycontin -) 10 mg PO BID [facility] Last Admin: 10/03/18 22:37 Dose: 10 mg Oxycodone HCl (Roxicodone -) 5 mg PO Q4H PRN PRN Reason: PAIN LEVEL 4 - 6 Last Admin: 10/04/18 07:43 Dose: 5 mg Pantoprazole Sodium (Protonix Iv) 40 mg IVPUSH BID [facility] Last Admin: 10/03/18 22:38 Dose: 40 mg Tamsulosin HCl (Flomax -) 0.4 mg PO DAILY@0830 [facility] Last Admin: 10/04/18 08:25 Dose: 0.4 mg Topiramate (Topamax -) 100 mg PO BID [facility] Last Admin: 10/03/18 22:37 Dose: 100 mg - Objective Vital Signs: Vital Signs Temperature 98.0 F 10/04/18 06:00 Pulse Rate 59 L 10/04/18 06:00 Respiratory Rate 20 10/04/18 06:00 Blood Pressure 147/77 10/04/18 06:00 O2 Sat by Pulse Oximetry (%) 98 10/03/18 21:00 Constitutional: Yes: No Distress Eyes: Yes: WNL HENT: Yes: WNL Neck: Yes: WNL Cardiovascular: Yes: WNL Respiratory: Yes: WNL Gastrointestinal: Yes: Normal Bowel Sounds ...Rectal Exam: Yes: Deferred Genitourinary: Yes: WNL Edema: No Integumentary: Yes: WNL Neurological: Yes: Alert ...Motor Strength: WNL Psychiatric: Yes: Alert Labs: CBC, BMP 10/01/18 07:00 10/01/18 07:00 INR, PTT INR 1.09 (0.83-1.09) 09/30/18 06:20 - ....Imaging Cat Scan: Report Reviewed Assessment/Plan Continue same trt
[2018-10-04] MEDS ORDERED: PT OWN MED DRAWER 7, Y5N ONE (10:20)
[2018-10-04] MEDS: oxyCODONE HCL 10 MG SUSTAINED ACTING TABLET PO SCH ×2 (10:30→21:17)
[2018-10-04] MEDS: amLODIPine BESYLATE 10 MG TABLET (FP) PO SCH (10:31)
[2018-10-04] MEDS: TOPIRAMATE 100 MG TABLET PO SCH ×2 (10:32→21:18)
[2018-10-04] MEDS: cloNIDine HCL 0.1 MG TABLET PO SCH (10:32)
[2018-10-04] MEDS: LIDOCAINE 5% TOPICAL PATCH TP SCH (10:33)
[2018-10-04] MEDS: DIVALPROEX SODIUM 500 MG TABLET E.C. PO SCH ×2 (10:33→21:17)
[2018-10-04] MEDS: carBAMazepine XR 400 MG TAB.ER.12H PO SCH ×2 (10:33→21:17)
[2018-10-04] MEDS: PANTOPRAZOLE SODIUM 40 MG VIAL IVPUSH SCH ×2 (10:34→21:17)
--- NOTE | 2018-10-04 10:53 | PN ---
Progress Note, Physician - Current Medication List Current Medications: Active Medications Al Hydroxide/Mg Hydroxide (Mylanta Oral Suspension -) 30 ml PO TID@0600,1200, 1800 [facility] Last Admin: 10/04/18 06:04 Dose: 30 ml Amlodipine Besylate (Norvasc -) 10 mg PO DAILY [facility] Last Admin: 10/04/18 10:31 Dose: 10 mg Atorvastatin Calcium (Lipitor -) 40 mg PO HS [facility] Last Admin: 10/03/18 22:37 Dose: 40 mg Carbamazepine (Tegretol Xr -) 400 mg PO BID [facility] Last Admin: 10/04/18 10:33 Dose: 400 mg Clonidine (Catapres -) 0.2 mg PO DAILY [facility] Last Admin: 10/04/18 10:32 Dose: 0.2 mg Divalproex Sodium (Depakote -) 1,000 mg PO BID [facility] Last Admin: 10/04/18 10:33 Dose: 1,000 mg Lidocaine (Lidoderm Patch -) 1 patch TP DAILY [facility] Last Admin: 10/04/18 10:33 Dose: 1 patch Losartan Potassium (Cozaar -) 100 mg PO BID [facility] Last Admin: 09/29/18 09:19 Dose: 100 mg Miscellaneous (Lidoderm Patch Removal) 1 each MC DAILY@2200 [facility] Last Admin: 10/03/18 22:38 Dose: 1 each Ondansetron HCl (Zofran Injection) 4 mg IVPB Q8H PRN PRN Reason: NAUSEA AND/OR VOMITING Oxycodone HCl (Oxycontin -) 10 mg PO BID [facility] Last Admin: 10/04/18 10:30 Dose: 10 mg Oxycodone HCl (Roxicodone -) 5 mg PO Q4H PRN PRN Reason: PAIN LEVEL 4 - 6 Last Admin: 10/04/18 07:43 Dose: 5 mg Pantoprazole Sodium (Protonix Iv) 40 mg IVPUSH BID [facility] Last Admin: 10/04/18 10:34 Dose: 40 mg Tamsulosin HCl (Flomax -) 0.4 mg PO DAILY@0830 [facility] Last Admin: 10/04/18 08:25 Dose: 0.4 mg Topiramate (Topamax -) 100 mg PO BID [facility] Last Admin: 10/04/18 10:32 Dose: 100 mg - Objective Vital Signs: Vital Signs Temperature 97.8 F 10/04/18 10:24 Pulse Rate 68 10/04/18 10:24 Respiratory Rate 20 10/04/18 10:24 Blood Pressure 145/88 10/04/18 10:24 O2 Sat by Pulse Oximetry (%) 98 10/03/18 21:00 Labs: CBC, BMP 10/01/18 07:00 10/01/18 07:00 INR, PTT INR 1.09 (0.83-1.09) 09/30/18 06:20 Problem List - Problems (1) Abdominal pain Code(s): R10.9 - UNSPECIFIED ABDOMINAL PAIN Qualifiers: Abdominal location: right upper quadrant Qualified Code(s): R10.11 - Right upper quadrant pain (2) Gastric ulcer Code(s): K25.9 - GASTRIC ULCER, UNSP ACUTE OR CHRONIC, W/O HEMOR OR PERF Qualifiers: Gastric ulcer complication status: without hemorrhage or perforation (3) Essential (primary) hypertension Code(s): I10 - ESSENTIAL (PRIMARY) HYPERTENSION (4) Seizure disorder Code(s): G40.909 - EPILEPSY, UNSP, NOT INTRACTABLE, WITHOUT STATUS EPILEPTICUS Assessment/Plan Still c/o abdominal pain , ? 05/25, needs analgesics all the time. Pathology is pending. treatment planning after biopsy report. CT sca was discussed with radiologist, Ct abdomen is significant for barbara enlargement along rhe celiac axis, splenic artery , and perigastric region. Plan further management after biopsy results.
--- NOTE | 2018-10-04 17:13 | PN ---
Physical Exam: SUBJECTIVE: Patient seen and examined OBJECTIVE: Vital Signs Period Temp Pulse Resp BP Sys/Cota Pulse Ox Last 24 Hr 97.8 F-98.4 F 58-68 20-20 123-147/77-88 98-98 GENERAL: The patient is awake, alert, and fully oriented, in no acute distress. HEAD: Normal with no signs of trauma. EYES: PERRL, extraocular movements intact, sclera anicteric, conjunctiva clear. No ptosis. ENT: Ears normal, nares patent, oropharynx clear without exudates, moist mucous membranes. NECK: Trachea midline, full range of motion, supple. LUNGS: Breath sounds equal, clear to auscultation bilaterally, no wheezes, no crackles, no accessory muscle use. HEART: Regular rate and rhythm, S1, S2 without murmur, rub or gallop. ABDOMEN: Soft, nontender, nondistended, normoactive bowel sounds, no guarding, no rebound, no hepatosplenomegaly, no masses. EXTREMITIES: 2+ pulses, warm, well-perfused, no edema. NEUROLOGICAL: Cranial nerves II through XII grossly intact. Normal speech, gait not observed. PSYCH: Normal mood, normal affect. SKIN: Warm, dry, normal turgor, no rashes or lesions noted Laboratory Results - last 24 hr 09/30/18 10/03/18 06:20 17:00 Haptoglobin 132 Glucose 107 H Total Bilirubin 0.3 GGT 293 H AST 48 H ALT 49 Liver Fibrosis Score 0.30 H Liver Fibrosis Stage Liver Steatosis Score 0.75 H Liver Steatosis Grade [id number] 164 Triglycerides 75 Cholesterol 152 Apolipoprotein A-1 178 Patient Height (cm) 74 Patient Weight (kg) 252 Urine Color Raina Urine Appearance Clear Urine pH 6.0 Ur Specific Welch 1.028 Urine Protein 1+ H Urine Glucose (UA) Negative Urine Ketones Negative Urine Blood Negative Urine Nitrite Negative Urine Bilirubin Negative Urine Urobilinogen Negative Ur Leukocyte Esterase Negative Urine WBC (Auto) 1 Urine RBC (Auto) 1 Ur Epithelial Cells Rare Urine Mucus Rare CSF IgG Interpretation Active Medications Generic Name Dose Route Start Last Admin Trade Name Freq PRN Reason Stop Dose Admin Al Hydroxide/Mg Hydroxide 30 ml 10/04/18 06:00 10/04/18 12:20 Mylanta Oral Suspension - PO 30 ml TID@0600,1200,1800 [facility] Administration Amlodipine Besylate 10 mg 09/29/18 10:00 10/04/18 10:31 Norvasc - PO 10 mg DAILY [facility] Administration Atorvastatin Calcium 40 mg 09/28/18 22:30 10/03/18 22:37 Lipitor - PO 40 mg HS [facility] Administration Carbamazepine 400 mg 09/28/18 22:30 10/04/18 10:33 Tegretol Xr - PO 400 mg BID [facility] Administration Clonidine 0.2 mg 09/29/18 10:00 10/04/18 10:32 Catapres - PO 0.2 mg DAILY [facility] Administration Divalproex Sodium 1,000 mg 09/28/18 22:30 10/04/18 10:33 Depakote - PO 1,000 mg BID [facility] Administration Lidocaine 1 patch 10/03/18 13:45 10/04/18 10:33 Lidoderm Patch - TP 1 patch DAILY [facility] Administration Losartan Potassium 100 mg 09/29/18 10:00 09/29/18 09:19 Cozaar - PO 100 mg BID [facility] Administration Miscellaneous 1 each 10/03/18 22:00 10/03/18 22:38 Lidoderm Patch Removal MC 1 each DAILY@2200 [facility] Administration Ondansetron HCl 4 mg 09/30/18 09:33 Zofran Injection IVPB Q8H PRN NAUSEA AND/OR VOMITING Oxycodone HCl 10 mg 10/03/18 10:00 10/04/18 10:30 Oxycontin - PO 10 mg BID [facility] Administration Oxycodone HCl 5 mg 10/03/18 13:22 10/04/18 07:43 Roxicodone - PO 5 mg Q4H PRN Administration PAIN LEVEL 4 - 6 Pantoprazole Sodium 40 mg 09/30/18 22:00 10/04/18 10:34 Protonix Iv IVPUSH 40 mg BID [facility] Administration Tamsulosin HCl 0.4 mg 09/29/18 08:30 10/04/18 08:25 Flomax - PO 0.4 mg DAILY@0830 [facility] Administration Topiramate 100 mg 09/28/18 22:30 10/04/18 10:32 Topamax - PO 100 mg BID [facility] Administration ASSESSMENT/PLAN: CT abdomen : Impression Impression: There is significant thickening of the duodenal wall, in particular its horizontal/third portion that is inseparable from uncinate process of the pancreatic head consistent with duodenitis, inflammatory versus infectious. There is also suggestion of thickening of the distal gastric antrum wall, inflammatory versus infectious. Trace of free fluid seen along the inferior medial margin of the liver. Mesenteric as well as para-aortic lymph nodes measuring up to 1.5 cm which are nonspecific and may be postinfectious. Over distended gallbladder without intraluminal stones or wall thickening. Fatty liver mainly involving the right hepatic lobe with a 1 cm low-attenuation lesion in the left hepatic lobe Nonvisualization of the appendix ASSESSMENT/PLAN: This is a 68 year old male with a history of epilepsy, htn, bph who presents with bloating and RLQ pain, found to have a large prepyloric ulcer ; suspect malignancy. Abdominal pain Large prepyloric ulcer -s/p endoscopy; report appreciated; suspect malignancy -po intake as tolerated; IVF -staging CT chest/abd/pelvis -PET-CT in view of worrisome perigastric nodes -tissue biopsy pending -If positive , - neoadjuvant chemotherapy x 3 cycles followed by surgery and completion chemotherapy post op. -If negative can approach surgically Visit type - Emergency Visit Emergency Visit: Yes ED Registration Date: 09/28/18 Care time: The patient presented to the Emergency Department on the above date and was hospitalized for further evaluation of their emergent condition. - New Patient This patient is new to me today: No - Critical Care Critical Care patient: No
--- NOTE | 2018-10-04 18:24 | PN ---
GI Progress Note Subjective: GI NOte: Pathology not yet available. Prasanna has developed vomiting after eating dinner but has only brought up some clear gastric fluid. NO blood. His pain is under control - Objective Vital Signs: Vital Signs Temperature 98.0 F 10/04/18 15:44 Pulse Rate 58 L 10/04/18 15:44 Respiratory Rate 20 10/04/18 15:44 Blood Pressure 123/79 10/04/18 15:44 O2 Sat by Pulse Oximetry (%) 98 10/04/18 10:00 Laboratory Tests 09/30/18 10/01/18 06:20 07:00 Carcinoembryonic Ag 4.4 CA 19-9 Antigen 39 H Gastrin 47 Laboratory Tests 09/30/18 06:20 Tiss Transglutamin IgG < 2 Tiss Transglutamin IgA < 2 Hepatitis A Ab Total Negative Hep Bs Antigen Negative Hep Bs Antibody Non reactive Hep B Core Total Ab Negative Hep C Ab Diagnostic <0.1 S.cerevisiae IgG Ab <20.0 S. cerevisiae IgG/IgA <20.0 Constitutional: Anxious ...Auscultate: Yes: Normoactive Bowel Sounds ...Palpate: Yes: Soft, Other (mild right epigastric tenderness is unchanged) Labs: CBC, BMP 10/01/18 07:00 10/01/18 07:00 INR, PTT INR 1.09 (0.83-1.09) 09/30/18 06:20 Assessment/Plan Suspect malignant gastric ulcer Reactive hepatopathy vs [place] -Chronic liver disease screening unremarkable Diverticulosis Plan: Await path Continue PPI Will repeat CBC and LFTs Switch to soft diet and add supplements Problem List - Problems (1) Duodenitis Code(s): K29.80 - DUODENITIS WITHOUT BLEEDING (2) Abnormal liver function tests Code(s): R94.5 - ABNORMAL RESULTS OF LIVER FUNCTION STUDIES (3) Fatty liver Code(s): K76.0 - FATTY (CHANGE OF) LIVER, NOT ELSEWHERE CLASSIFIED (4) Seizure disorder Code(s): G40.909 - EPILEPSY, UNSP, NOT INTRACTABLE, WITHOUT STATUS EPILEPTICUS (5) Diverticulosis Code(s): K57.90 - DVRTCLOS OF INTEST, PART UNSP, W/O PERF OR ABSCESS W/O BLEED
[2018-10-04] MEDS: LIDOCAINE PATCH REMOVAL MC SCH (21:18)
[2018-10-04] MEDS: ATORVASTATIN CA 40 MG TABLET (FP) PO SCH (21:18)
[2018-10-05] MEDS: MAG HYDROX/AL HYDROX/SIMETH 30 ML UNIT-DOSE CUP PO SCH ×3 (06:35→17:49)
[2018-10-05 07:11] LABS: BASO % 0.5 % (0-2.0); EOS % 0.7 % (0-4.5); HEMATOCRIT 42.8 % (35.4-49); HEMOGLOBIN 14.6 GM/dL (11.7-16.9); LYMPH % 22.7 % (8-40); MCH 32.7 pg (25.7-33.7); MCHC 34.2 g/dl (32.0-35.9); MEAN CELL VOLUME 95.8 fl (80-96); MEAN PLT VOLUME 10.4 fl (7.5-11.1); MONO % 22.2 % (3.8-10.2); NEUT % 53.9 % (42.8-82.8); PLATELET COUNT 168 K/MM3 (134-434); RBC 4.47 M/mm3 (4.00-5.60); RDW 13.6 % (11.9-15.9); WHITE BLOOD COUNT 5.7 K/mm3 (4.0-10.0)
[2018-10-05 07:50] LABS: ALBUMIN 3.2 g/dl (3.4-5.0); ALK PHOS 253 U/L (45-117); ANION GAP 6 MMOL/L (8-16); BILIRUBIN,DIRECT 0.2 mg/dL (0.0-0.2); BILIRUBIN,TOTAL 0.4 mg/dL (0.2-1); BLOOD UREA NITROGEN 12 mg/dL (7-18); CALCIUM 8.3 mg/dL (8.5-10.1); CHLORIDE 104 mmol/L (98-107); CO2 26 mmol/L (21-32); CREATININE 1.4 mg/dL (0.55-1.3); GLUCOSE,RANDOM 87 mg/dL (74-106); POTASSIUM 3.9 mmol/L (3.5-5.1); SGOT/AST 59 U/L (15-37); SGPT/ALT 56 U/L (13-61); SODIUM 136 mmol/L (136-145); TOT PROT 7.5 g/dl (6.4-8.2)
[2018-10-05] MEDS ORDERED: PT OWN MED DRAWER 7, Y5N ONE (08:51)
[2018-10-05] MEDS ORDERED: COLCHICINE 0.6 MG TABLET (FP) PO ONE (09:29)
--- NOTE | 2018-10-05 09:38 | PN ---
Progress Note, Physician Chief Complaint: C/O pain on the foot History of Present Illness: Path report pending - Current Medication List Current Medications: Active Medications Al Hydroxide/Mg Hydroxide (Mylanta Oral Suspension -) 30 ml PO TID@0600,1200, 1800 [facility] Last Admin: 10/05/18 06:35 Dose: 30 ml Amlodipine Besylate (Norvasc -) 10 mg PO DAILY [facility] Last Admin: 10/04/18 10:31 Dose: 10 mg Atorvastatin Calcium (Lipitor -) 40 mg PO HS [facility] Last Admin: 10/04/18 21:18 Dose: 40 mg Carbamazepine (Tegretol Xr -) 400 mg PO BID [facility] Last Admin: 10/04/18 21:17 Dose: 400 mg Clonidine (Catapres -) 0.2 mg PO DAILY [facility] Last Admin: 10/04/18 10:32 Dose: 0.2 mg Colchicine (Colcrys -) 1.2 mg PO ONCE ONE Stop: 10/05/18 09:30 Divalproex Sodium (Depakote -) 1,000 mg PO BID [facility] Last Admin: 10/04/18 21:17 Dose: 1,000 mg Lidocaine (Lidoderm Patch -) 1 patch TP DAILY [facility] Last Admin: 10/04/18 10:33 Dose: 1 patch Losartan Potassium (Cozaar -) 100 mg PO BID [facility] Last Admin: 09/29/18 09:19 Dose: 100 mg Miscellaneous (Lidoderm Patch Removal) 1 each MC DAILY@2200 [facility] Last Admin: 10/04/18 21:18 Dose: 1 each Ondansetron HCl (Zofran Injection) 4 mg IVPB Q8H PRN PRN Reason: NAUSEA AND/OR VOMITING Last Admin: 10/04/18 18:38 Dose: 4 mg Oxycodone HCl (Oxycontin -) 10 mg PO BID [facility] Last Admin: 10/04/18 21:17 Dose: 10 mg Oxycodone HCl (Roxicodone -) 5 mg PO Q4H PRN PRN Reason: PAIN LEVEL 4 - 6 Last Admin: 10/04/18 07:43 Dose: 5 mg Pantoprazole Sodium (Protonix Iv) 40 mg IVPUSH BID [facility] Last Admin: 10/04/18 21:17 Dose: 40 mg Tamsulosin HCl (Flomax -) 0.4 mg PO DAILY@0830 [facility] Last Admin: 10/04/18 08:25 Dose: 0.4 mg Topiramate (Topamax -) 100 mg PO BID [facility] Last Admin: 10/04/18 21:18 Dose: 100 mg - Objective Vital Signs: Vital Signs Temperature 98.4 F 10/05/18 06:00 Pulse Rate 67 10/05/18 06:00 Respiratory Rate 20 10/05/18 06:00 Blood Pressure 135/69 10/05/18 06:00 O2 Sat by Pulse Oximetry (%) 98 10/04/18 21:00 Constitutional: Yes: Mild Distress Eyes: Yes: WNL HENT: Yes: WNL Neck: Yes: WNL Cardiovascular: Yes: WNL Respiratory: Yes: WNL Gastrointestinal: Yes: WNL ...Rectal Exam: Yes: WNL Extremities: Yes: Other (tender area on Rt foot No redness or erethema Possible gout) Labs: CBC, BMP 10/05/18 06:00 10/05/18 06:00 INR, PTT INR 1.09 (0.83-1.09) 09/30/18 06:20 Assessment/Plan Start colchicine Uric acid level ordered
[2018-10-05] MEDS: TAMSULOSIN HCL 0.4 MG CAP PO SCH (09:39)
[2018-10-05] MEDS: oxyCODONE HCL 10 MG SUSTAINED ACTING TABLET PO SCH ×2 (09:39→22:46)
[2018-10-05] MEDS: amLODIPine BESYLATE 10 MG TABLET (FP) PO SCH (09:39)
[2018-10-05] MEDS: cloNIDine HCL 0.1 MG TABLET PO SCH (09:39)
[2018-10-05] MEDS: carBAMazepine XR 400 MG TAB.ER.12H PO SCH ×2 (09:40→22:48)
[2018-10-05] MEDS: LIDOCAINE 5% TOPICAL PATCH TP SCH (09:40)
[2018-10-05] MEDS: DIVALPROEX SODIUM 500 MG TABLET E.C. PO SCH ×2 (09:40→22:47)
[2018-10-05] MEDS: TOPIRAMATE 100 MG TABLET PO SCH ×2 (09:40→22:48)
[2018-10-05] MEDS: PANTOPRAZOLE SODIUM 40 MG VIAL IVPUSH SCH ×2 (09:40→22:47)
[2018-10-05 10:23] LABS: URIC ACID 4.8 mg/dL (2.6-7.2)
[2018-10-05 13:24] LABS: ANISOCYTOSIS 0; HELMET CELLS 0; HOWELL-JOLLY BODIES 0; MACROCYTOSIS 0; OVALOCYTE 0; PLATELET ESTIMATE NORMAL; ROULEAU 0; SICKELED CELLS 0; TARGET CELLS 0; TEAR DROP CELLS 0; TOXIC GRANULATION 0
--- NOTE | 2018-10-05 15:32 | PN ---
Progress Note, Physician History of Present Illness: Still c/o right sided flank pain. 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 Patient and his are informed of the histology, and advanced nature based on the Ct scan. He will be scheduled for laparoscopy , peritoneal wash out , and lymph node biopsy on Wednesday10/07/2018. Patient is aware. - Current Medication List Current Medications: Active Medications Al Hydroxide/Mg Hydroxide (Mylanta Oral Suspension -) 30 ml PO TID@0600,1200, 1800 [facility] Last Admin: 10/05/18 14:16 Dose: Not Given Amlodipine Besylate (Norvasc -) 10 mg PO DAILY [facility] Last Admin: 10/05/18 09:39 Dose: 10 mg Atorvastatin Calcium (Lipitor -) 40 mg PO HS [facility] Last Admin: 10/04/18 21:18 Dose: 40 mg Carbamazepine (Tegretol Xr -) 400 mg PO BID [facility] Last Admin: 10/05/18 09:40 Dose: 400 mg Clonidine (Catapres -) 0.2 mg PO DAILY [facility] Last Admin: 10/05/18 09:39 Dose: 0.2 mg Divalproex Sodium (Depakote -) 1,000 mg PO BID [facility] Last Admin: 10/05/18 09:40 Dose: 1,000 mg Lidocaine (Lidoderm Patch -) 1 patch TP DAILY [facility] Last Admin: 10/05/18 09:40 Dose: 1 patch Losartan Potassium (Cozaar -) 100 mg PO BID [facility] Last Admin: 09/29/18 09:19 Dose: 100 mg Miscellaneous (Lidoderm Patch Removal) 1 each MC DAILY@2200 [facility] Last Admin: 10/04/18 21:18 Dose: 1 each Ondansetron HCl (Zofran Injection) 4 mg IVPB Q8H PRN PRN Reason: NAUSEA AND/OR VOMITING Last Admin: 10/04/18 18:38 Dose: 4 mg Oxycodone HCl (Oxycontin -) 10 mg PO BID [facility] Last Admin: 10/05/18 09:39 Dose: 10 mg Oxycodone HCl (Roxicodone -) 5 mg PO Q4H PRN PRN Reason: PAIN LEVEL 4 - 6 Last Admin: 10/04/18 07:43 Dose: 5 mg Pantoprazole Sodium (Protonix Iv) 40 mg IVPUSH BID [facility] Last Admin: 10/05/18 09:40 Dose: 40 mg Tamsulosin HCl (Flomax -) 0.4 mg PO DAILY@0830 [facility] Last Admin: 10/05/18 09:39 Dose: 0.4 mg Topiramate (Topamax -) 100 mg PO BID [facility] Last Admin: 10/05/18 09:40 Dose: 100 mg - Objective Vital Signs: Vital Signs Temperature 98.3 F 10/05/18 14:42 Pulse Rate 73 10/05/18 14:42 Respiratory Rate 20 10/05/18 14:42 Blood Pressure 123/77 10/05/18 14:42 O2 Sat by Pulse Oximetry (%) 98 10/05/18 09:00 Labs: CBC, BMP 10/05/18 06:00 10/05/18 06:00 INR, PTT INR 1.09 (0.83-1.09) 09/30/18 06:20 Problem List - Problems (1) Abdominal pain Code(s): R10.9 - UNSPECIFIED ABDOMINAL PAIN Qualifiers: Abdominal location: right upper quadrant Qualified Code(s): R10.11 - Right upper quadrant pain (2) Gastric ulcer Code(s): K25.9 - GASTRIC ULCER, UNSP ACUTE OR CHRONIC, W/O HEMOR OR PERF Qualifiers: Gastric ulcer complication status: without hemorrhage or perforation (3) Essential (primary) hypertension Code(s): I10 - ESSENTIAL (PRIMARY) HYPERTENSION (4) Seizure disorder Code(s): G40.909 - EPILEPSY, UNSP, NOT INTRACTABLE, WITHOUT STATUS EPILEPTICUS
--- NOTE | 2018-10-05 18:16 | PN ---
Progress Note (short form) - Note Progress Note: Patient seen and examined Discussed with patient and Unfortunately - PD gastric aenoca. Likely barbara involvement based upon CT. Discussed with Dr. Morris-- laparoscopic surgery for barbara biopsies, sub diaphragmatic and peritoneal biopsies. IF positive- neoadjuvant chemotherapy prior to surgery.
[2018-10-05] MEDS: ATORVASTATIN CA 40 MG TABLET (FP) PO SCH (22:46)
[2018-10-05] MEDS: LIDOCAINE PATCH REMOVAL MC SCH (22:47)
[2018-10-06] MEDS: MAG HYDROX/AL HYDROX/SIMETH 30 ML UNIT-DOSE CUP PO SCH ×3 (08:28→18:35)
--- NOTE | 2018-10-06 08:55 | PATH ---
Surgical Pathology Report Patient Name: TC [facility]. Rec. #: [id number] /Age/Gender: 1950 (Age: 68) / M Account: [id number] Location: [address] [place] [address] Taken: 09/30/2018 Received: 10/04/2018 Reported: 10/06/2018 Physicians: Magalie Paula M.D. Norman Rosen, M.D. Abdul Azeez, M.D. Specimen(s) Received A: PROXIMAL JEJUNUM BIOPSY B: BX 2ND PORTION DUODENUM C: BX PREPYLORIC Clinical History Abdominal pain, abnormal CT scan Postoperative diagnosis: Large suspicious gastric ulcer Final Diagnosis A. PROXIMAL JEJUNUM, BIOPSY: SMALL BOWEL MUCOSA WITHOUT SIGNIFICANT PATHOLOGIC FINDINGS. B. DUODENUM, SECOND PORTION, BIOPSY: DUODENAL MUCOSA WITHOUT SIGNIFICANT PATHOLOGIC FINDINGS. C. STOMACH, PREPYLORIC, BIOPSY: POORLY DIFFERENTIATED ADENOCARCINOMA. Gastric mucosa with marked chronic active gastritis, focal intestinal metaplasia, and ASSOCIATED ulceration. Comment: Case discussed with Dr. Ruiz. Her2 and H. pylori studies pending. Findings will be reported separately. Electronically Signed Vanesa De Los Santos M.D. Addendum Reported: 10/18/2018 Addendum Diagnosis Part C, Immunohistochemical stain for H. pylori is negative. Results of Her2 (IHC) performed and interpreted at [facility] ([id number]) are as follows: Her2 IHC (4B5 rabbit monoclonal primary antibody from [facility] anti-Her2/bassam): 0 (Negative). Complete Membrane Stainin% Uniform Staining: Absent Homogeneous, dark circumferential pattern: Absent Sample Adequate for Analysis: Yes Reference Range: 0 = Negative. No reactivity or no membranous reactivity in any (or < 5 clustered) tumor cells. 1+ = Negative. Tumor cell cluster (= 5 cells) with a faint/barely perceptible membranous reactivity irrespective of percentage of tumor cells stained. 2+ = Equivocal. Tumor cell cluster (= 5 cells) with a weak to moderate complete, basolateral or lateral membranous reactivity irrespective of percentage of tumor cells stained. 3+ = Positive. Tumor cell clusters (= 5 cells) with a strong complete, basolateral or lateral membranous reactivity irrespective of percentage of tumor cells stained. See Integrated report for additional details ([id number]). Vanesa De Los Santos M.D. Gross Description A. Received in formalin, labeled "proximal jejunum" are 2 zhong, irregular portions of soft tissue measuring 0.4 and 0.5 cm. in greatest dimension. The specimens are submitted in toto in one cassette. B. Received in formalin, labeled "second portion of duodenum" are 5 zhong, irregular portions of soft tissue ranging from 0.2-0.3 cm. in greatest dimension. The specimens are submitted in toto in one cassette. C. Received in formalin, labeled "prepyloric" are 6 zhong, irregular portions of soft tissue ranging from 0.1-0.5 cm. in greatest dimension. The specimens are submitted in toto in one cassette. 10/04/2018 [facility]10/04/2018
--- NOTE | 2018-10-06 09:04 | PN ---
Progress Note, Physician Chief Complaint: Pain Rt foot History of Present Illness: path report [place] dif adeno ca - Current Medication List Current Medications: Active Medications Al Hydroxide/Mg Hydroxide (Mylanta Oral Suspension -) 30 ml PO TID@0600,1200, 1800 [facility] Last Admin: 10/06/18 08:28 Dose: Not Given Amlodipine Besylate (Norvasc -) 10 mg PO DAILY [facility] Last Admin: 10/05/18 09:39 Dose: 10 mg Atorvastatin Calcium (Lipitor -) 40 mg PO HS [facility] Last Admin: 10/05/18 22:46 Dose: 40 mg Carbamazepine (Tegretol Xr -) 400 mg PO BID [facility] Last Admin: 10/05/18 22:48 Dose: 400 mg Clonidine (Catapres -) 0.2 mg PO DAILY [facility] Last Admin: 10/05/18 09:39 Dose: 0.2 mg Divalproex Sodium (Depakote -) 1,000 mg PO BID [facility] Last Admin: 10/05/18 22:47 Dose: 1,000 mg Lidocaine (Lidoderm Patch -) 1 patch TP DAILY [facility] Last Admin: 10/05/18 09:40 Dose: 1 patch Losartan Potassium (Cozaar -) 100 mg PO BID [facility] Last Admin: 09/29/18 09:19 Dose: 100 mg Miscellaneous (Lidoderm Patch Removal) 1 each MC DAILY@2200 [facility] Last Admin: 10/05/18 22:47 Dose: 1 each Ondansetron HCl (Zofran Injection) 4 mg IVPB Q8H PRN PRN Reason: NAUSEA AND/OR VOMITING Last Admin: 10/04/18 18:38 Dose: 4 mg Oxycodone HCl (Oxycontin -) 10 mg PO BID [facility] Last Admin: 10/05/18 22:46 Dose: 10 mg Oxycodone HCl (Roxicodone -) 5 mg PO Q4H PRN PRN Reason: PAIN LEVEL 4 - 6 Last Admin: 10/04/18 07:43 Dose: 5 mg Pantoprazole Sodium (Protonix Iv) 40 mg IVPUSH BID [facility] Last Admin: 10/05/18 22:47 Dose: 40 mg Tamsulosin HCl (Flomax -) 0.4 mg PO DAILY@0830 [facility] Last Admin: 10/05/18 09:39 Dose: 0.4 mg Topiramate (Topamax -) 100 mg PO BID [facility] Last Admin: 10/05/18 22:48 Dose: 100 mg - Objective Vital Signs: Vital Signs Temperature 98.4 F 10/06/18 06:00 Pulse Rate 72 10/06/18 06:00 Respiratory Rate 20 10/06/18 06:00 Blood Pressure 147/74 10/06/18 06:00 O2 Sat by Pulse Oximetry (%) 98 10/05/18 21:00 Constitutional: Yes: No Distress Eyes: Yes: WNL HENT: Yes: WNL Neck: Yes: WNL Cardiovascular: Yes: WNL Respiratory: Yes: WNL Gastrointestinal: Yes: WNL ...Rectal Exam: Yes: WNL Genitourinary: Yes: WNL Labs: CBC, BMP 10/05/18 06:00 10/05/18 06:00 INR, PTT INR 1.09 (0.83-1.09) 09/30/18 06:20 Assessment/Plan Cleared for the biopsy procedure by Guera Morris
[2018-10-06] MEDS ORDERED: COLCHICINE 0.6 MG TABLET (FP) PO ONE ×2 (09:05→10:15)
[2018-10-06] MEDS ORDERED: PT OWN MED DRAWER 7, Y5N ONE ×3 (10:08→20:35)
[2018-10-06] MEDS: LIDOCAINE 5% TOPICAL PATCH TP SCH (10:49)
[2018-10-06] MEDS: oxyCODONE HCL 10 MG SUSTAINED ACTING TABLET PO SCH ×2 (10:50→22:11)
[2018-10-06] MEDS: carBAMazepine XR 400 MG TAB.ER.12H PO SCH ×2 (10:51→22:05)
[2018-10-06] MEDS: cloNIDine HCL 0.1 MG TABLET PO SCH (10:51)
[2018-10-06] MEDS: TOPIRAMATE 100 MG TABLET PO SCH ×2 (10:52→22:05)
[2018-10-06] MEDS: OXYBUTYNIN CHLORIDE 5 MG TABLET PO SCH ×2 (10:52→22:07)
[2018-10-06] MEDS: amLODIPine BESYLATE 10 MG TABLET (FP) PO SCH (10:52)
[2018-10-06] MEDS: DIVALPROEX SODIUM 500 MG TABLET E.C. PO SCH ×2 (10:53→22:05)
[2018-10-06] MEDS: TAMSULOSIN HCL 0.4 MG CAP PO SCH (10:53)
[2018-10-06] MEDS: PANTOPRAZOLE SODIUM 40 MG VIAL IVPUSH SCH ×2 (10:54→22:12)
[2018-10-06] MEDS ORDERED: oxyCODONE HCL 5 MG TABLET PO PRN (14:00)
--- NOTE | 2018-10-06 14:18 | PN ---
Physical Exam: SUBJECTIVE: Patient seen and examined c/o right foot pain; to tender to touch OBJECTIVE: Vital Signs Period Temp Pulse Resp BP Sys/Cota Pulse Ox Last 24 Hr 98.0 F-98.4 F 71-85 18-20 123-174/70-90 98 GENERAL: The patient is awake, alert, and fully oriented, in no acute distress. LUNGS: Breath sounds equal, clear to auscultation bilaterally, no wheezes, no crackles, no accessory muscle use. HEART: Regular rate and rhythm, S1, S2 without murmur, rub or gallop. ABDOMEN: Soft, nontender, +distended, normoactive bowel sounds, no guarding, no rebound, no hepatosplenomegaly, no masses. EXTREMITIES: 2+ pulses, warm, well-perfused, no edema. Right foot slightly swollen; very tender to touch NEUROLOGICAL: Cranial nerves II through XII grossly intact. Normal speech, gait not observed. PSYCH: Normal mood, normal affect. SKIN: Warm, dry, normal turgor, no rashes or lesions noted Active Medications Generic Name Dose Route Start Last Admin Trade Name Freq PRN Reason Stop Dose Admin Al Hydroxide/Mg Hydroxide 30 ml 10/04/18 06:00 10/06/18 12:45 Mylanta Oral Suspension - PO 30 ml TID@0600,1200,1800 [facility] Administration Amlodipine Besylate 10 mg 09/29/18 10:00 10/06/18 10:52 Norvasc - PO 10 mg DAILY [facility] Administration Atorvastatin Calcium 40 mg 09/28/18 22:30 10/05/18 22:46 Lipitor - PO 40 mg HS [facility] Administration Carbamazepine 400 mg 09/28/18 22:30 10/06/18 10:51 Tegretol Xr - PO 400 mg BID [facility] Administration Clonidine 0.2 mg 09/29/18 10:00 10/06/18 10:51 Catapres - PO 0.2 mg DAILY [facility] Administration Divalproex Sodium 1,000 mg 09/28/18 22:30 10/06/18 10:53 Depakote - PO 1,000 mg BID [facility] Administration Lidocaine 1 patch 10/03/18 13:45 10/06/18 10:49 Lidoderm Patch - TP 1 patch DAILY [facility] Administration Losartan Potassium 100 mg 09/29/18 10:00 09/29/18 09:19 Cozaar - PO 100 mg BID [facility] Administration Miscellaneous 1 each 10/03/18 22:00 10/05/18 22:47 Lidoderm Patch Removal MC 1 each DAILY@2200 [facility] Administration Ondansetron HCl 4 mg 09/30/18 09:33 10/04/18 18:38 Zofran Injection IVPB 4 mg Q8H PRN Administration NAUSEA AND/OR VOMITING Oxybutynin Chloride 5 mg 10/06/18 10:00 10/06/18 10:52 Ditropan - PO 5 mg BID [facility] Administration Oxycodone HCl 10 mg 10/03/18 10:00 10/06/18 10:50 Oxycontin - PO 10 mg BID [facility] Administration Oxycodone HCl 5 mg 10/06/18 14:00 Roxicodone - PO Q4H PRN PAIN LEVEL 4 - 6 Pantoprazole Sodium 40 mg 09/30/18 22:00 10/06/18 10:54 Protonix Iv IVPUSH 40 mg BID [facility] Administration Tamsulosin HCl 0.4 mg 09/29/18 08:30 10/06/18 10:53 Flomax - PO 0.4 mg DAILY@0830 [facility] Administration Topiramate 100 mg 09/28/18 22:30 10/06/18 10:52 Topamax - PO 100 mg BID [facility] Administration CT abdomen : Impression Impression: There is significant thickening of the duodenal wall, in particular its horizontal/third portion that is inseparable from uncinate process of the pancreatic head consistent with duodenitis, inflammatory versus infectious. There is also suggestion of thickening of the distal gastric antrum wall, inflammatory versus infectious. Trace of free fluid seen along the inferior medial margin of the liver. Mesenteric as well as para-aortic lymph nodes measuring up to 1.5 cm which are nonspecific and may be postinfectious. Over distended gallbladder without intraluminal stones or wall thickening. Fatty liver mainly involving the right hepatic lobe with a 1 cm low-attenuation lesion in the left hepatic lobe Nonvisualization of the appendix ASSESSMENT/PLAN: This is a 68 year old male with a history of epilepsy, htn, bph who presents with bloating and RLQ pain, found to have a large prepyloric ulcer ; suspect malignancy. Abdominal pain Large prepyloric ulcer Adenocarcinoma of the stomach Gout JERRELL -tissue biopsy +for adeno Ca of the stomch -po intake as tolerated; IVF -staging CT chest/abd/pelvis - laparoscopic surgery for barbara biopsies, sub diaphragmatic and peritoneal biopsies. -if positive- neoadjuvant chemotherapy prior to surgery. -rise in creatinine today; would start IVF -gout was given cholchine by primary Visit type - Emergency Visit Emergency Visit: Yes ED Registration Date: 09/28/18 Care time: The patient presented to the Emergency Department on the above date and was hospitalized for further evaluation of their emergent condition. - New Patient This patient is new to me today: No - Critical Care Critical Care patient: No
[2018-10-06] MEDS ORDERED: SODIUM CHLORIDE 1,000 ML IV SCH (14:30)
--- NOTE | 2018-10-06 16:09 | PN ---
Progress Note, Physician - Current Medication List Current Medications: Active Medications Al Hydroxide/Mg Hydroxide (Mylanta Oral Suspension -) 30 ml PO TID@0600,1200, 1800 [facility] Last Admin: 10/06/18 12:45 Dose: 30 ml Allopurinol (Zyloprim -) 100 mg PO DAILY [facility] Amlodipine Besylate (Norvasc -) 10 mg PO DAILY [facility] Last Admin: 10/06/18 10:52 Dose: 10 mg Atorvastatin Calcium (Lipitor -) 40 mg PO HS [facility] Last Admin: 10/05/18 22:46 Dose: 40 mg Carbamazepine (Tegretol Xr -) 400 mg PO BID [facility] Last Admin: 10/06/18 10:51 Dose: 400 mg Clonidine (Catapres -) 0.2 mg PO DAILY [facility] Last Admin: 10/06/18 10:51 Dose: 0.2 mg Divalproex Sodium (Depakote -) 1,000 mg PO BID [facility] Last Admin: 10/06/18 10:53 Dose: 1,000 mg Sodium Chloride (Normal Saline -) 1,000 mls @ 125 mls/hr IV ASDIR [facility] Stop: 10/06/18 22:29 Lidocaine (Lidoderm Patch -) 1 patch TP DAILY [facility] Last Admin: 10/06/18 10:49 Dose: 1 patch Losartan Potassium (Cozaar -) 100 mg PO BID [facility] Last Admin: 09/29/18 09:19 Dose: 100 mg Miscellaneous (Lidoderm Patch Removal) 1 each MC DAILY@2200 [facility] Last Admin: 10/05/18 22:47 Dose: 1 each Ondansetron HCl (Zofran Injection) 4 mg IVPB Q8H PRN PRN Reason: NAUSEA AND/OR VOMITING Last Admin: 10/04/18 18:38 Dose: 4 mg Oxybutynin Chloride (Ditropan -) 5 mg PO BID [facility] Last Admin: 10/06/18 10:52 Dose: 5 mg Oxycodone HCl (Oxycontin -) 10 mg PO BID [facility] Last Admin: 10/06/18 10:50 Dose: 10 mg Oxycodone HCl (Roxicodone -) 5 mg PO Q4H PRN PRN Reason: PAIN LEVEL 4 - 6 Last Admin: 10/06/18 15:33 Dose: 5 mg Pantoprazole Sodium (Protonix Iv) 40 mg IVPUSH BID [facility] Last Admin: 10/06/18 10:54 Dose: 40 mg Tamsulosin HCl (Flomax -) 0.4 mg PO DAILY@0830 [facility] Last Admin: 10/06/18 10:53 Dose: 0.4 mg Topiramate (Topamax -) 100 mg PO BID [facility] Last Admin: 10/06/18 10:52 Dose: 100 mg - Objective Vital Signs: Vital Signs Temperature 97.7 F 10/06/18 14:15 Pulse Rate 74 10/06/18 14:15 Respiratory Rate 20 10/06/18 14:15 Blood Pressure 159/83 10/06/18 14:15 O2 Sat by Pulse Oximetry (%) 98 10/05/18 21:00 Labs: CBC, BMP 10/05/18 06:00 10/05/18 06:00 INR, PTT INR 1.09 (0.83-1.09) 09/30/18 06:20 Problem List - Problems (1) Abdominal pain Code(s): R10.9 - UNSPECIFIED ABDOMINAL PAIN Qualifiers: Abdominal location: right upper quadrant Qualified Code(s): R10.11 - Right upper quadrant pain (2) Gastric ulcer Code(s): K25.9 - GASTRIC ULCER, UNSP ACUTE OR CHRONIC, W/O HEMOR OR PERF Qualifiers: Gastric ulcer complication status: without hemorrhage or perforation (3) Essential (primary) hypertension Code(s): I10 - ESSENTIAL (PRIMARY) HYPERTENSION (4) Seizure disorder Code(s): G40.909 - EPILEPSY, UNSP, NOT INTRACTABLE, WITHOUT STATUS EPILEPTICUS Assessment/Plan Patient is informed of the diagnosis of invasive carcinoma of stomach, and the planned procedure of peritoneoscopy, abdominal lymph node biopsy , and peritoneal wash out, tomorrow. Consent obtained. Procedure explained , with risks, benefits and complications.
[2018-10-06] MEDS: ALLOPURINOL 100 MG TABLET (FP) PO SCH (16:16)
[2018-10-06] MEDS: LIDOCAINE PATCH REMOVAL MC SCH (22:05)
[2018-10-06] MEDS: ATORVASTATIN CA 40 MG TABLET (FP) PO SCH (22:05)
[2018-10-07] MEDS: MAG HYDROX/AL HYDROX/SIMETH 30 ML UNIT-DOSE CUP PO SCH ×3 (06:00→18:01)
[2018-10-07] MEDS ORDERED: BUPIVACAINE HCL/PF 0.5% (5MG/ML) 10 ML VIAL ONE (08:25)
[2018-10-07] MEDS ORDERED: DESFLURANE GAS 240 ML BOTTLE IH ONE (08:27)
--- NOTE | 2018-10-07 09:09 | PN ---
Progress Note, Physician Chief Complaint: Foot pain little better History of Present Illness: Scheduled for laproscopic peritonial biopsy - Current Medication List Current Medications: Active Medications Al Hydroxide/Mg Hydroxide (Mylanta Oral Suspension -) 30 ml PO TID@0600,1200, 1800 [facility] Last Admin: 10/07/18 06:00 Dose: Not Given Allopurinol (Zyloprim -) 100 mg PO DAILY [facility] Last Admin: 10/06/18 16:16 Dose: 100 mg Amlodipine Besylate (Norvasc -) 10 mg PO DAILY [facility] Last Admin: 10/06/18 10:52 Dose: 10 mg Atorvastatin Calcium (Lipitor -) 40 mg PO HS [facility] Last Admin: 10/06/18 22:05 Dose: 40 mg Carbamazepine (Tegretol Xr -) 400 mg PO BID [facility] Last Admin: 10/06/18 22:05 Dose: 400 mg Clonidine (Catapres -) 0.2 mg PO DAILY [facility] Last Admin: 10/06/18 10:51 Dose: 0.2 mg Divalproex Sodium (Depakote -) 1,000 mg PO BID [facility] Last Admin: 10/06/18 22:05 Dose: 1,000 mg Lidocaine (Lidoderm Patch -) 1 patch TP DAILY [facility] Last Admin: 10/06/18 10:49 Dose: 1 patch Losartan Potassium (Cozaar -) 100 mg PO BID [facility] Last Admin: 09/29/18 09:19 Dose: 100 mg Miscellaneous (Lidoderm Patch Removal) 1 each MC DAILY@2200 [facility] Last Admin: 10/06/18 22:05 Dose: 1 each Ondansetron HCl (Zofran Injection) 4 mg IVPB Q8H PRN PRN Reason: NAUSEA AND/OR VOMITING Last Admin: 10/04/18 18:38 Dose: 4 mg Oxybutynin Chloride (Ditropan -) 5 mg PO BID [facility] Last Admin: 10/06/18 22:07 Dose: 5 mg Oxycodone HCl (Oxycontin -) 10 mg PO BID [facility] Last Admin: 10/06/18 22:11 Dose: 10 mg Oxycodone HCl (Roxicodone -) 5 mg PO Q4H PRN PRN Reason: PAIN LEVEL 4 - 6 Last Admin: 10/06/18 15:33 Dose: 5 mg Pantoprazole Sodium (Protonix Iv) 40 mg IVPUSH BID [facility] Last Admin: 10/06/18 22:12 Dose: 40 mg Tamsulosin HCl (Flomax -) 0.4 mg PO DAILY@0830 [facility] Last Admin: 10/06/18 10:53 Dose: 0.4 mg Topiramate (Topamax -) 100 mg PO BID [facility] Last Admin: 10/06/18 22:05 Dose: 100 mg - Objective Vital Signs: Vital Signs Temperature 98.3 F 10/07/18 07:05 Pulse Rate 77 10/07/18 07:05 Respiratory Rate 20 10/07/18 07:05 Blood Pressure 149/83 10/07/18 07:05 O2 Sat by Pulse Oximetry (%) 96 10/06/18 21:00 Constitutional: Yes: No Distress Eyes: Yes: WNL HENT: Yes: WNL Neck: Yes: WNL Cardiovascular: Yes: WNL Respiratory: Yes: WNL Gastrointestinal: Yes: WNL ...Rectal Exam: Yes: WNL, Deferred Peripheral Pulses WNL: Yes Neurological: Yes: Alert ...Motor Strength: WNL Psychiatric: Yes: Alert Labs: CBC, BMP 10/05/18 06:00 10/05/18 06:00 INR, PTT INR 1.09 (0.83-1.09) 09/30/18 06:20 Assessment/Plan cleared for the procedure Case discussed with Dr Morris
[2018-10-07] MEDS ORDERED: LIDOCAINE HCL/PF 2% SDV 5ML VIAL ONE (09:39)
[2018-10-07] MEDS ORDERED: ceFAZolin SODIUM 1 GM VIAL ONE (09:39)
[2018-10-07] MEDS ORDERED: fentaNYL CITRATE 250 MCG/5 ML VIAL ONE (09:39)
[2018-10-07] MEDS ORDERED: MIDAZOLAM HCL 2 MG/2 ML SINGLE DOSE VIAL ONE (09:40)
[2018-10-07] MEDS ORDERED: ROCURONIUM BROMIDE 50 MG/5 ML VIAL ONE (09:40)
[2018-10-07] MEDS ORDERED: PROPOFOL 20 ML ONE ×2 (09:40)
[2018-10-07] MEDS ORDERED: ceFAZolin SODIUM 1 GM VIAL IVPB ONE (10:05)
[2018-10-07] MEDS ORDERED: GLYCOPYRROLATE 0.2 MG/1 ML VIAL ONE (10:36)
[2018-10-07] MEDS ORDERED: DEXAMETHASONE SOD PHOSPHATE 4 MG/1 ML VIAL ONE (10:36)
[2018-10-07] MEDS ORDERED: NEOSTIGMINE METHYLSULFATE 0.5 MG/ML - 10 ML MDV ONE (10:37)
[2018-10-07] MEDS: TAMSULOSIN HCL 0.4 MG CAP PO SCH ×2 (11:39→14:19)
[2018-10-07] MEDS: cloNIDine HCL 0.1 MG TABLET PO SCH ×2 (11:39→14:09)
[2018-10-07] MEDS: DIVALPROEX SODIUM 500 MG TABLET E.C. PO SCH ×3 (11:39→21:28)
[2018-10-07] MEDS: carBAMazepine XR 400 MG TAB.ER.12H PO SCH ×3 (11:40→21:31)
[2018-10-07] MEDS: PANTOPRAZOLE SODIUM 40 MG VIAL IVPUSH SCH ×2 (11:40→21:29)
[2018-10-07] MEDS: OXYBUTYNIN CHLORIDE 5 MG TABLET PO SCH ×3 (11:40→21:28)
[2018-10-07] MEDS ORDERED: BUPIVACAINE HCL/PF (5 MG/ML) 30 ML VIAL IJ ONE ×2 (11:40)
[2018-10-07] MEDS: oxyCODONE HCL 10 MG SUSTAINED ACTING TABLET PO SCH ×2 (11:40→21:29)
[2018-10-07] MEDS: TOPIRAMATE 100 MG TABLET PO SCH ×3 (11:40→21:28)
[2018-10-07] MEDS: ALLOPURINOL 100 MG TABLET (FP) PO SCH (11:40)
[2018-10-07] MEDS ORDERED: LABETALOL HCL 5 MG/1 ML (100MG/20 ML VIAL) IVPUSH ONE ×2 (12:05→13:09)
[2018-10-07] MEDS ORDERED: LACTATED RINGERS SOLUTION 1,000 ML IV SCH ×2 (12:15→13:09)
[2018-10-07] MEDS: amLODIPine BESYLATE 10 MG TABLET (FP) PO SCH ×2 (12:19→14:09)
--- NOTE | 2018-10-07 12:27 | OP ---
Operative Note - Note: Operative Date: 10/07/18 Pre-Operative Diagnosis: Carcinoma of distal stomach. Operation: Diagnostic laparoscopy,. Peritoneal wash out,. Liver biopsy,. staging laproscopy Findings: Large tumor in distal stomach , with nodular tumor on the visceral peritoneum adjacent to the inferior border of the distal stomach. Mass extends inferiorly into the head of the pancreas. Tumor nodules, superior to the stomach and ? enlarged nodes along the lesser sac. A small nodule on the inferior ( under) surface of the right lobe of the liver was excised and sent for histology, ( doubt, this is tumor). Lesser sac opened, and stomach lifted anteriorly, ? enlarged lymph nodes felt medial to the lesser curvature, (not biopsied. No implants seen in the pelvis and diaphragm. Transverse colon lifted and no tumor seen behind the mesentery of the transverse colon. No gross ascites. Locally advanced tumor , invading the pancreatic head and nodules outside the stomach wall into the visceral peritoneum. Surgeon: Brianda Morris Theatrical Dresser: Quinton Silva Anesthesiologist/GLUE MIXER: Stephanie Augustin Anesthesia: General Specimens Removed: Liver nodule,. Peritoneal wash out from. a) the pelvis and . b) the right upper quadrant of abdomen. Estimated Blood Loss (mls): 20 Operative Report Dictated: Yes
[2018-10-07] MEDS ORDERED: PT OWN MED DRAWER 7, Y5N ONE ×2 (14:02→17:51)
[2018-10-07] MEDS: LOSARTAN POTASSIUM 50 MG TABLET (FP) PO SCH ×2 (14:08→21:28)
[2018-10-07] MEDS: oxyCODONE HCL 5 MG TABLET PO PRN ×2 (14:19→18:01)
--- NOTE | 2018-10-07 15:31 | OP ---
DATE OF OPERATION: 10/07/2018 PREOPERATIVE DIAGNOSIS: Ulcerated carcinoma of the distal stomach. HISTOLOGY: Poorly-differentiated carcinoma of the stomach. POSTOPERATIVE DIAGNOSIS: Extensive carcinoma of the distal stomach, invading the pancreas, with implants on the peritoneal surface of the stomach and enlarged nodes. OPERATIVE PROCEDURE: Diagnostic staging laparoscopy with peritoneal washings and biopsy, and laparoscopic liver biopsy. SURGEON: Rachael Morris MD BLOCKER POLISHING: Quinton Silva MD ANESTHESIA: General anesthesia. OPERATIVE DESCRIPTION: This 68-year-old man was admitted with abdominal pain in the right upper quadrant and was found to have initially on a CAT scan a mass around the 3rd portion of the duodenum. The patient had endoscopy, which revealed an ulcerated infiltrating nodular lesion in the distal portion of the stomach. Biopsy revealed this to be a poorly-differentiated carcinoma of the stomach. CAT scan also revealed multiple enlarged lymph nodes in the perigastric region in the lateral side as well as in the suprapancreatic location. This was brought in for staging laparoscopy and biopsy of the tumor. Consent was obtained. Risks, benefits, and complications had been discussed with the patient. The patient was brought to the operating room. General anesthesia was administered. Abdomen painted and draped. Turner catheter was placed in the bladder, which was removed right after the procedure. Dr. Quinton Silva was assisting me during the procedure. An incision was made in the infraumbilical portion of the umbilicus, which was deepened through the skin, subcutaneous tissue, and the linea alba. The peritoneum was incised, and a 10- to 12-mm laparoscopic trocar of the [place] type was introduced into the abdominal cavity. The abdomen was inflated with carbon dioxide at 6 L/min with maximum intra-abdominal pressure of 15 mmHg. A 30-degree 5- and 10-mm lens was used during the procedure as needed. Once the abdominal cavity was entered and visualized, two 5-mm trocars were inserted in the left side of the abdomen, one in the left upper quadrant, another in the left lower quadrant of the abdomen. These trocars were visualized and introduced into the abdominal cavity , under direct vision of the camera. A third 5-mm trocar was inserted in the midline in the subxiphoid area. This was also noted entering the abdominal cavity to the left of the falciform ligament. The abdominal cavity was then visualized. There was a large mass in the distal portion of the stomach with nodular, elevated masses on the serosal surface of the stomach. On the inferior edge of the distal stomach, there were implants on the surface of the visceral peritoneum. This suggested, that the tumor had penetrated through the wall of the stomach. Additionally there were tumor deposits outside the stomach, as well. In addition, there was an extension of the tumor into the head of the pancreas for about 4-5 cm. There was also a suggestion of gastric outlet obstruction , with distention of the stomach. The pancreatic extention was not biopsied, and the peritoneum over the pancreas was intact. The superior and medial surface of the stomach above the distal pancreas was then visualized, which revealed further nodular lesions on the wall of the stomach, as well as on the lateral side. There was a small nodule on the inferior surface of the right lobe of the liver. This was excised separately using LigaSure and sent to Pathology. This appeared to be a fatty lesion and did not grossly appear as a metastatic lesion. The lesser sac was then opened on the greater curvature of the stomach by dividing the greater omentum using the LigaSure. The posterior wall of the stomach was lifted up to visualize the vessels along the lesser curvature and the celiac vessels. There were hard nodular lesions in the retroperitoneum medial to the stomach. This was not biopsied. The superior edge of the pancreas was visualized and, again, had hard nodular lesions. There was no grossly visible tumor in this area; therefore, it was not biopsied. Prior to this, the fluid in the pelvic was aspirated. In addition, the pelvis was irrigated, and fluid was collected for cytology. In addition, the infrahepatic area as well as the anterior surface of the distal portion of the stomach was irrigated and the fluid aspirated and sent for cytology. The fluid was sent for cytology from the pelvis as well as from the perigastric lesion area. After this, the great omentum and the transverse colon were lifted anteriorly to visualize the posterior surface of the mesentery of the transverse colon. There were no gross lesions in this area. The rest of the strong bowel appeared to be normal. The cecum, ascending colon, and descending colon were also normal. The peritoneal surface on the undersurface of the diaphragm also was normal and no nodular lesions. Thus, the nodular lesions were adjacent to the distal stomach also on the lesser curvature and on the inferior surface of the distal stomach. Pictures were obtained and placed in the chart as well. Thus, the tumor appeared to be very extensive involving the distal stomach as well as inferiorly involving the pancreas and the visceral peritoneum on the inferior surface of the stomach. The patient required preoperative therapy to consider destruction of this lesion. There was no gross bleeding at the completion of procedure. Surgicel was placed in the lesser sac. The instruments were then withdrawn under direct vision. The linea alba and midline was approximated with interrupted [id number] 2-0 Vicryl sutures. The skin was approximated with buried interrupted 4-0 Monocryl sutures. All of the instruments were withdrawn under direct vision. The bowel was normal after completion. Dermabond was applied at the skin edges. The patient remained stable. Estimated blood loss was less than 20 mL. Turner catheter was removed after the procedure. Magalie BARTHOLOMEW/[id number] cc: MD Kelvin Rivas MD Norman Rosen, MD Orest Kozicky, MD MTDD
[2018-10-07] MEDS: LIDOCAINE 5% TOPICAL PATCH TP SCH (16:20)
[2018-10-07] MEDS: ATORVASTATIN CA 40 MG TABLET (FP) PO SCH (21:28)
[2018-10-07] MEDS: LIDOCAINE PATCH REMOVAL MC SCH (21:29)
[2018-10-07] MEDS ORDERED: TOPIRAMATE 100 MG TABLET PO SCH (22:00)
[2018-10-07] MEDS ORDERED: LIDOCAINE PATCH REMOVAL MC SCH (22:00)
[2018-10-08] MEDS: MAG HYDROX/AL HYDROX/SIMETH 30 ML UNIT-DOSE CUP PO SCH ×3 (05:29→17:40)
[2018-10-08] MEDS: oxyCODONE HCL 5 MG TABLET PO PRN ×3 (06:46→17:40)
[2018-10-08 07:56] LABS: HEMATOCRIT 42.6 % (35.4-49); HEMOGLOBIN 14.5 GM/dL (11.7-16.9); MCH 32.5 pg (25.7-33.7); MEAN CELL VOLUME 95.6 fl (80-96); MEAN PLT VOLUME 10.1 fl (7.5-11.1); PLATELET COUNT 198 K/MM3 (134-434); RBC 4.46 M/mm3 (4.00-5.60); RDW 13.8 % (11.9-15.9)
[2018-10-08 08:29] LABS: ALBUMIN 2.9 g/dl (3.4-5.0); ALK PHOS 274 U/L (45-117); ANION GAP 9 MMOL/L (8-16); BILIRUBIN,TOTAL 0.5 mg/dL (0.2-1); BLOOD UREA NITROGEN 15 mg/dL (7-18); CALCIUM 8.8 mg/dL (8.5-10.1); CHLORIDE 104 mmol/L (98-107); CO2 23 mmol/L (21-32); CREATININE 1.2 mg/dL (0.55-1.3); GLUCOSE,RANDOM 93 mg/dL (74-106); POTASSIUM 4.1 mmol/L (3.5-5.1); SGOT/AST 93 U/L (15-37); SGPT/ALT 106 U/L (13-61); SODIUM 136 mmol/L (136-145); TOT PROT 7.1 g/dl (6.4-8.2)
[2018-10-08] MEDS ORDERED: TAMSULOSIN HCL 0.4 MG CAP PO SCH (08:30)
--- NOTE | 2018-10-08 08:43 | PN ---
Progress Note (short form) - Note Progress Note: Anesthesia Pt seen and examined S:Alert and awake comfortable O: Vital Signs Temperature 97.6 F 10/08/18 06:09 Pulse Rate 74 10/08/18 06:09 Respiratory Rate 20 10/08/18 06:09 Blood Pressure 130/78 10/08/18 06:09 O2 Sat by Pulse Oximetry (%) 97 10/07/18 21:00 CBC, BMP 10/08/18 06:30 10/08/18 06:30 A/P: Current Active Problems Abdominal pain (Acute) Abnormal liver function tests (Acute) Diverticulosis (Acute) Duodenitis (Acute) Essential (primary) hypertension (Acute) Gastric ulcer (Acute) Pancreatitis (Acute) Seizure disorder (Acute) s/p laparoscopy peritoneal washing Doing well post op Continue current care Herbert Lopez MD
[2018-10-08] MEDS: TAMSULOSIN HCL 0.4 MG CAP PO SCH (08:51)
[2018-10-08] MEDS: cloNIDine HCL 0.1 MG TABLET PO SCH (09:50)
[2018-10-08] MEDS: LOSARTAN POTASSIUM 50 MG TABLET (FP) PO SCH ×2 (09:50→21:43)
[2018-10-08] MEDS: OXYBUTYNIN CHLORIDE 5 MG TABLET PO SCH ×2 (09:51→21:43)
[2018-10-08] MEDS: amLODIPine BESYLATE 10 MG TABLET (FP) PO SCH (09:51)
[2018-10-08] MEDS: ALLOPURINOL 100 MG TABLET (FP) PO SCH (09:51)
[2018-10-08] MEDS: oxyCODONE HCL 10 MG SUSTAINED ACTING TABLET PO SCH ×2 (09:51→21:43)
[2018-10-08] MEDS: LIDOCAINE 5% TOPICAL PATCH TP SCH (09:52)
[2018-10-08] MEDS: carBAMazepine XR 400 MG TAB.ER.12H PO SCH ×2 (09:52→21:43)
[2018-10-08] MEDS: PANTOPRAZOLE SODIUM 40 MG VIAL IVPUSH SCH ×2 (09:52→21:43)
[2018-10-08] MEDS: DIVALPROEX SODIUM 500 MG TABLET E.C. PO SCH ×2 (09:52→21:43)
[2018-10-08] MEDS: TOPIRAMATE 100 MG TABLET PO SCH ×2 (09:53→21:43)
[2018-10-08] MEDS ORDERED: amLODIPine BESYLATE 10 MG TABLET (FP) PO SCH (10:00)
[2018-10-08] MEDS: ONDANSETRON 4 MG/2 ML VIAL IVPB PRN (10:06)
--- NOTE | 2018-10-08 13:03 | PN ---
Progress Note, Physician - Current Medication List Current Medications: Active Medications Al Hydroxide/Mg Hydroxide (Mylanta Oral Suspension -) 30 ml PO TID@0600,1200, 1800 [facility] Last Admin: 10/08/18 05:29 Dose: 30 ml Allopurinol (Zyloprim -) 100 mg PO DAILY [facility] Last Admin: 10/08/18 09:51 Dose: 100 mg Amlodipine Besylate (Norvasc -) 10 mg PO DAILY [facility] Last Admin: 10/08/18 09:51 Dose: 10 mg Atorvastatin Calcium (Lipitor -) 40 mg PO HS [facility] Last Admin: 10/07/18 21:28 Dose: 40 mg Carbamazepine (Tegretol Xr -) 400 mg PO BID [facility] Last Admin: 10/08/18 09:52 Dose: 400 mg Clonidine (Catapres -) 0.2 mg PO DAILY [facility] Last Admin: 10/08/18 09:50 Dose: 0.2 mg Divalproex Sodium (Depakote -) 1,000 mg PO BID [facility] Last Admin: 10/08/18 09:52 Dose: 1,000 mg Lidocaine (Lidoderm Patch -) 1 patch TP DAILY [facility] Last Admin: 10/08/18 09:52 Dose: 1 patch Losartan Potassium (Cozaar -) 100 mg PO BID [facility] Last Admin: 10/08/18 09:50 Dose: 100 mg Miscellaneous (Lidoderm Patch Removal) 1 each MC DAILY@2200 [facility] Last Admin: 10/07/18 21:29 Dose: Not Given Ondansetron HCl (Zofran Injection) 4 mg IVPB Q8H PRN PRN Reason: NAUSEA AND/OR VOMITING Oxybutynin Chloride (Ditropan -) 5 mg PO BID [facility] Last Admin: 10/08/18 09:51 Dose: 5 mg Oxycodone HCl (Roxicodone -) 5 mg PO Q4H PRN PRN Reason: PAIN LEVEL 4 - 6 Last Admin: 10/08/18 06:46 Dose: 5 mg Oxycodone HCl (Oxycontin -) 10 mg PO BID [facility] Last Admin: 10/08/18 09:51 Dose: 10 mg Pantoprazole Sodium (Protonix Iv) 40 mg IVPUSH BID [facility] Last Admin: 10/08/18 09:52 Dose: 40 mg Tamsulosin HCl (Flomax -) 0.4 mg PO DAILY@0830 [facility] Last Admin: 10/08/18 08:51 Dose: 0.4 mg Topiramate (Topamax -) 100 mg PO BID [facility] Last Admin: 10/08/18 09:53 Dose: 100 mg - Objective Vital Signs: Vital Signs Temperature 97.6 F 10/08/18 06:09 Pulse Rate 74 10/08/18 06:09 Respiratory Rate 20 10/08/18 06:09 Blood Pressure 130/78 10/08/18 06:09 O2 Sat by Pulse Oximetry (%) 97 10/07/18 21:00 Constitutional: Yes: Mild Distress Eyes: Yes: WNL HENT: Yes: WNL Neck: Yes: WNL Cardiovascular: Yes: WNL Respiratory: Yes: [place] Gastrointestinal: Yes: Hypoactive Bowel Sounds, Tenderness ...Rectal Exam: Yes: Deferred Musculoskeletal: Yes: WNL Edema: No Labs: CBC, BMP 10/08/18 06:30 10/08/18 06:30 INR, PTT INR 1.09 (0.83-1.09) 09/30/18 06:20 Assessment/Plan Diet as tolerated
--- NOTE | 2018-10-08 14:00 | PN ---
GI Progress Note Subjective: GI NOte: I discussed the surgical findings with Dr Morris yesterday and explained them to Prasanna today. I explained that his cancer is inoperable at this stage and that he will need chemotherapy once he recovers adequately form his surgery. He has minimal surgical incision discomfort - Objective Vital Signs: Vital Signs Temperature 97.6 F 10/08/18 06:09 Pulse Rate 74 10/08/18 06:09 Respiratory Rate 20 10/08/18 06:09 Blood Pressure 130/78 10/08/18 06:09 O2 Sat by Pulse Oximetry (%) 97 10/07/18 21:00 Constitutional: Calm Gastrointestinal Inspection: Yes: Scars (healing laparoscopic incisions) ...Auscultate: Yes: Hypoactive Bowel Sounds ...Palpate: Yes: Soft Labs: CBC, BMP 10/08/18 06:30 10/08/18 06:30 INR, PTT INR 1.09 (0.83-1.09) 09/30/18 06:20 Assessment/Plan Impression: Advanced gastric adenocarcinoma with local invasion Plan: Chemotherapy as per Dr Gramajo once surgical wounds heal Problem List - Problems (1) Adenocarcinoma of stomach, stage 4 Assessment/Plan: Advanced gastric adenocarcinoma with peritoneal implants/invasion beyond the stomach Code(s): C16.9 - MALIGNANT NEOPLASM OF STOMACH, UNSPECIFIED (2) Duodenitis Code(s): K29.80 - DUODENITIS WITHOUT BLEEDING (3) Abnormal liver function tests Code(s): R94.5 - ABNORMAL RESULTS OF LIVER FUNCTION STUDIES (4) Fatty liver Code(s): K76.0 - FATTY (CHANGE OF) LIVER, NOT ELSEWHERE CLASSIFIED (5) Seizure disorder Code(s): G40.909 - EPILEPSY, UNSP, NOT INTRACTABLE, WITHOUT STATUS EPILEPTICUS (6) Diverticulosis Code(s): K57.90 - DVRTCLOS OF INTEST, PART UNSP, W/O PERF OR ABSCESS W/O BLEED
--- NOTE | 2018-10-08 14:44 | PN ---
Progress Note, Physician Chief Complaint: C/O some abdominal pain. Abdomen is soft , distended predominantly in upper abdomen. ? gastric distention / obstruction. - Current Medication List Current Medications: Active Medications Al Hydroxide/Mg Hydroxide (Mylanta Oral Suspension -) 30 ml PO TID@0600,1200, 1800 [facility] Last Admin: 10/08/18 13:03 Dose: 30 ml Allopurinol (Zyloprim -) 100 mg PO DAILY [facility] Last Admin: 10/08/18 09:51 Dose: 100 mg Amlodipine Besylate (Norvasc -) 10 mg PO DAILY [facility] Last Admin: 10/08/18 09:51 Dose: 10 mg Atorvastatin Calcium (Lipitor -) 40 mg PO HS [facility] Last Admin: 10/07/18 21:28 Dose: 40 mg Carbamazepine (Tegretol Xr -) 400 mg PO BID [facility] Last Admin: 10/08/18 09:52 Dose: 400 mg Clonidine (Catapres -) 0.2 mg PO DAILY [facility] Last Admin: 10/08/18 09:50 Dose: 0.2 mg Divalproex Sodium (Depakote -) 1,000 mg PO BID [facility] Last Admin: 10/08/18 09:52 Dose: 1,000 mg Lidocaine (Lidoderm Patch -) 1 patch TP DAILY [facility] Last Admin: 10/08/18 09:52 Dose: 1 patch Losartan Potassium (Cozaar -) 100 mg PO BID [facility] Last Admin: 10/08/18 09:50 Dose: 100 mg Miscellaneous (Lidoderm Patch Removal) 1 each MC DAILY@2200 [facility] Last Admin: 10/07/18 21:29 Dose: Not Given Ondansetron HCl (Zofran Injection) 4 mg IVPB Q8H PRN PRN Reason: NAUSEA AND/OR VOMITING Last Admin: 10/08/18 10:06 Dose: 4 mg Oxybutynin Chloride (Ditropan -) 5 mg PO BID [facility] Last Admin: 10/08/18 09:51 Dose: 5 mg Oxycodone HCl (Roxicodone -) 5 mg PO Q4H PRN PRN Reason: PAIN LEVEL 4 - 6 Last Admin: 10/08/18 13:03 Dose: 5 mg Oxycodone HCl (Oxycontin -) 10 mg PO BID [facility] Last Admin: 10/08/18 09:51 Dose: 10 mg Pantoprazole Sodium (Protonix Iv) 40 mg IVPUSH BID [facility] Last Admin: 10/08/18 09:52 Dose: 40 mg Tamsulosin HCl (Flomax -) 0.4 mg PO DAILY@0830 [facility] Last Admin: 10/08/18 08:51 Dose: 0.4 mg Topiramate (Topamax -) 100 mg PO BID [facility] Last Admin: 10/08/18 09:53 Dose: 100 mg - Objective Vital Signs: Vital Signs Temperature 97.6 F 10/08/18 06:09 Pulse Rate 74 10/08/18 06:09 Respiratory Rate 20 10/08/18 06:09 Blood Pressure 130/78 10/08/18 06:09 O2 Sat by Pulse Oximetry (%) 97 10/07/18 21:00 Labs: CBC, BMP 10/08/18 06:30 10/08/18 06:30 INR, PTT INR 1.09 (0.83-1.09) 09/30/18 06:20 Problem List - Problems (1) Abdominal pain Code(s): R10.9 - UNSPECIFIED ABDOMINAL PAIN Qualifiers: Abdominal location: right upper quadrant Qualified Code(s): R10.11 - Right upper quadrant pain (2) Gastric ulcer Code(s): K25.9 - GASTRIC ULCER, UNSP ACUTE OR CHRONIC, W/O HEMOR OR PERF Qualifiers: Gastric ulcer complication status: without hemorrhage or perforation (3) Essential (primary) hypertension Code(s): I10 - ESSENTIAL (PRIMARY) HYPERTENSION (4) Seizure disorder Code(s): G40.909 - EPILEPSY, UNSP, NOT INTRACTABLE, WITHOUT STATUS EPILEPTICUS Assessment/Plan Patient is informed of the diagnosis of invasive carcinoma of stomach, and the planned procedure of peritoneoscopy, abdominal lymph node biopsy , and peritoneal wash out, tomorrow. Consent obtained. Procedure explained , with risks, benefits and complications. Alkaline phosphatase is rising , along with AST , and ALT, ? common bile duct obstruction. Discuaaed with Dr. Hancock and patient and his / Will obtain abdominal X-Ray. Extensive carcinoma of stomach , T4, with peritoneal implants, ? gastric outlet obstruction, r/o common bile duct obstruction.
[2018-10-08] MEDS: ATORVASTATIN CA 40 MG TABLET (FP) PO SCH (21:43)
[2018-10-08] MEDS: LIDOCAINE PATCH REMOVAL MC SCH (21:44)
[2018-10-09] MEDS: oxyCODONE HCL 5 MG TABLET PO PRN ×3 (01:40→10:42)
[2018-10-09] MEDS: MAG HYDROX/AL HYDROX/SIMETH 30 ML UNIT-DOSE CUP PO SCH ×3 (05:37→17:40)
[2018-10-09 08:18] LABS: BASO % 0.4 % (0-2.0); EOS % 0.4 % (0-4.5); HEMATOCRIT 42.7 % (35.4-49); HEMOGLOBIN 14.5 GM/dL (11.7-16.9); LYMPH % 13.7 % (8-40); MCH 32.5 pg (25.7-33.7); MCHC 33.9 g/dl (32.0-35.9); MEAN CELL VOLUME 95.9 fl (80-96); MONO % 26.7 % (3.8-10.2); NEUT % 58.8 % (42.8-82.8); PLATELET COUNT 198 K/MM3 (134-434); RBC 4.45 M/mm3 (4.00-5.60); WHITE BLOOD COUNT 8.7 K/mm3 (4.0-10.0)
[2018-10-09] MEDS: TAMSULOSIN HCL 0.4 MG CAP PO SCH (08:51)
[2018-10-09 08:56] LABS: ALBUMIN 2.8 g/dl (3.4-5.0); ALK PHOS 226 U/L (45-117); ANION GAP 8 MMOL/L (8-16); BILIRUBIN,TOTAL 0.5 mg/dL (0.2-1); BLOOD UREA NITROGEN 15 mg/dL (7-18); CALCIUM 8.5 mg/dL (8.5-10.1); CHLORIDE 101 mmol/L (98-107); CO2 24 mmol/L (21-32); CREATININE 1.2 mg/dL (0.55-1.3); GLUCOSE,RANDOM 103 mg/dL (74-106); POTASSIUM 4.3 mmol/L (3.5-5.1); SGOT/AST 52 U/L (15-37); SGPT/ALT 74 U/L (13-61); SODIUM 134 mmol/L (136-145); TOT PROT 7.1 g/dl (6.4-8.2)
[2018-10-09] MEDS: PANTOPRAZOLE SODIUM 40 MG VIAL IVPUSH SCH ×2 (10:37→21:26)
[2018-10-09] MEDS: amLODIPine BESYLATE 10 MG TABLET (FP) PO SCH (10:37)
[2018-10-09] MEDS: ALLOPURINOL 100 MG TABLET (FP) PO SCH (10:38)
[2018-10-09] MEDS: OXYBUTYNIN CHLORIDE 5 MG TABLET PO SCH ×2 (10:38→21:29)
[2018-10-09] MEDS: cloNIDine HCL 0.1 MG TABLET PO SCH (10:38)
[2018-10-09] MEDS: LOSARTAN POTASSIUM 50 MG TABLET (FP) PO SCH ×2 (10:38→21:26)
[2018-10-09] MEDS: oxyCODONE HCL 10 MG SUSTAINED ACTING TABLET PO SCH ×2 (10:40→21:27)
[2018-10-09] MEDS: LIDOCAINE 5% TOPICAL PATCH TP SCH (10:40)
[2018-10-09] MEDS: DIVALPROEX SODIUM 500 MG TABLET E.C. PO SCH ×2 (10:40→21:27)
[2018-10-09] MEDS: TOPIRAMATE 100 MG TABLET PO SCH ×2 (10:42→21:28)
[2018-10-09] MEDS: carBAMazepine XR 400 MG TAB.ER.12H PO SCH ×2 (10:42→21:28)
--- NOTE | 2018-10-09 13:24 | PN ---
Progress Note, Physician Chief Complaint: C/O abdominal distention, no BM not passing flatus - Current Medication List Current Medications: Active Medications Al Hydroxide/Mg Hydroxide (Mylanta Oral Suspension -) 30 ml PO TID@0600,1200, 1800 [facility] Last Admin: 10/09/18 12:49 Dose: Not Given Allopurinol (Zyloprim -) 100 mg PO DAILY [facility] Last Admin: 10/09/18 10:38 Dose: 100 mg Amlodipine Besylate (Norvasc -) 10 mg PO DAILY [facility] Last Admin: 10/09/18 10:37 Dose: 10 mg Atorvastatin Calcium (Lipitor -) 40 mg PO HS [facility] Last Admin: 10/08/18 21:43 Dose: 40 mg Carbamazepine (Tegretol Xr -) 400 mg PO BID [facility] Last Admin: 10/09/18 10:42 Dose: 400 mg Clonidine (Catapres -) 0.2 mg PO DAILY [facility] Last Admin: 10/09/18 10:38 Dose: 0.2 mg Divalproex Sodium (Depakote -) 1,000 mg PO BID [facility] Last Admin: 10/09/18 10:40 Dose: 1,000 mg Lidocaine (Lidoderm Patch -) 1 patch TP DAILY [facility] Last Admin: 10/09/18 10:40 Dose: 1 patch Losartan Potassium (Cozaar -) 100 mg PO BID [facility] Last Admin: 10/09/18 10:38 Dose: 100 mg Miscellaneous (Lidoderm Patch Removal) 1 each MC DAILY@2200 [facility] Last Admin: 10/08/18 21:44 Dose: 1 each Ondansetron HCl (Zofran Injection) 4 mg IVPB Q8H PRN PRN Reason: NAUSEA AND/OR VOMITING Last Admin: 10/08/18 10:06 Dose: 4 mg Oxybutynin Chloride (Ditropan -) 5 mg PO BID [facility] Last Admin: 10/09/18 10:38 Dose: 5 mg Oxycodone HCl (Roxicodone -) 5 mg PO Q4H PRN PRN Reason: PAIN LEVEL 4 - 6 Last Admin: 10/09/18 10:42 Dose: 5 mg Oxycodone HCl (Oxycontin -) 10 mg PO BID [facility] Last Admin: 10/09/18 10:40 Dose: 10 mg Pantoprazole Sodium (Protonix Iv) 40 mg IVPUSH BID [facility] Last Admin: 10/09/18 10:37 Dose: 40 mg Tamsulosin HCl (Flomax -) 0.4 mg PO DAILY@0830 [facility] Last Admin: 10/09/18 08:51 Dose: 0.4 mg Topiramate (Topamax -) 100 mg PO BID [facility] Last Admin: 10/09/18 10:42 Dose: 100 mg - Objective Vital Signs: Vital Signs Temperature 98.9 F 10/09/18 08:57 Pulse Rate 97 H 10/09/18 08:57 Respiratory Rate 20 10/09/18 08:57 Blood Pressure 147/91 10/09/18 08:57 O2 Sat by Pulse Oximetry (%) 98 10/09/18 09:00 Elderly man not in distress HEENT: Mm moist, no anemia, PERRLA, EOMI NECK: No JVd No Bruit CHEST: CTA B/L CVS; S1S2 R no m/g/r ABD: s/p surgery, healing scar, no distention, non tender Bs + EXT: No edemia feet, no calf tenderness 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 Operated on Post OP day 2 , Large tumor in distal stomach , with nodular tumor on the visceral peritoneum adjacent to the inferior border of the distal stomach.Mass extends interiorly into the head of the pancreas.c/o mild distention X ray shows fecal load in colon and distention. Discussed with Dr Morris recommended fleet enema and Clear liquid as tolerates. Code(s): C16.9 - MALIGNANT NEOPLASM OF STOMACH, UNSPECIFIED (2) Pancreatitis Assessment/Plan: improving no c/o abd pain lipse trended normal Code(s): K85.90 - ACUTE PANCREATITIS WITHOUT NECROSIS OR INFECTION, UNSP Qualifiers: Chronicity: acute Pancreatitis type: unspecified pancreatitis type Acute pancreatitis complication: unspecified Qualified Code(s): K85.90 - Acute pancreatitis without necrosis or infection, unspecified (3) Essential (primary) hypertension Assessment/Plan: Well controlled cont all home meds Code(s): I10 - ESSENTIAL (PRIMARY) HYPERTENSION (4) Seizure disorder Assessment/Plan: cont home meds Code(s): G40.909 - EPILEPSY, UNSP, NOT INTRACTABLE, WITHOUT STATUS EPILEPTICUS (5) Malnutrition Assessment/Plan: Low albumin 2.8 nutrional consult Code(s): E46 - UNSPECIFIED PROTEIN-CALORIE MALNUTRITION (6) BPH (benign prostatic hyperplasia) Assessment/Plan: cont flomax Code(s): N40.0 - BENIGN PROSTATIC HYPERPLASIA WITHOUT LOWER URINRY TRACT SYMP (7) Hypercholesteremia Assessment/Plan: cont lipitor Code(s): E78.00 - PURE HYPERCHOLESTEROLEMIA, UNSPECIFIED (8) Hyperuricemia Assessment/Plan: on Zyloric Code(s): E79.0 - HYPERURICEMIA W/O SIGNS OF INFLAM ARTHRIT AND TOPHACEOUS DIS
[2018-10-09] MEDS ORDERED: SODIUM PHOSPHATE/NA BIPHOS 133 ML ENEMA PR ONE (13:44)
[2018-10-09 13:53] LABS: ANISOCYTOSIS 1+; MACROCYTOSIS 1+; OVALOCYTE 1+; PLATELET ESTIMATE NORMAL
[2018-10-09 14:37] LABS: MAGNESIUM 2.1 mg/dL (1.8-2.4)
[2018-10-09] MEDS: D5-1/2NS+10 MEQ KCL - 10 MEQ/1,000 ML INFUS.BAG IV SCH (15:20)
[2018-10-09] MEDS: ONDANSETRON 4 MG/2 ML VIAL IVPB PRN (19:01)
[2018-10-09] MEDS ORDERED: INSULIN (NOVOLOG) ASPART 100 UNITS/ML 10ML VIAL ONE (21:05)
[2018-10-09] MEDS ORDERED: PT OWN MED DRAWER 7, Y5N ONE (21:06)
[2018-10-09] MEDS: ATORVASTATIN CA 40 MG TABLET (FP) PO SCH (21:26)
[2018-10-09] MEDS: LIDOCAINE PATCH REMOVAL MC SCH (21:28)
[2018-10-09] MEDS: ONDANSETRON 4 MG/2 ML VIAL IVPUSH PRN (23:28)
[2018-10-10] MEDS: D5-1/2NS+10 MEQ KCL - 10 MEQ/1,000 ML INFUS.BAG IV SCH (02:04)
[2018-10-10] MEDS: oxyCODONE HCL 5 MG TABLET PO PRN (03:48)
[2018-10-10] MEDS: MAG HYDROX/AL HYDROX/SIMETH 30 ML UNIT-DOSE CUP PO SCH ×4 (05:38→17:15)
[2018-10-10] MEDS: ONDANSETRON 4 MG/2 ML VIAL IVPB PRN (06:25)
[2018-10-10] MEDS: ONDANSETRON 4 MG/2 ML VIAL IVPUSH PRN ×2 (06:26→14:38)
[2018-10-10 08:22] LABS: ALBUMIN 3.1 g/dl (3.4-5.0); ALK PHOS 233 U/L (45-117); ANION GAP 13 MMOL/L (8-16); BILIRUBIN,TOTAL 0.7 mg/dL (0.2-1); BLOOD UREA NITROGEN 16 mg/dL (7-18); CALCIUM 9.5 mg/dL (8.5-10.1); CHLORIDE 98 mmol/L (98-107); CO2 22 mmol/L (21-32); CREATININE 1.2 mg/dL (0.55-1.3); GLUCOSE,RANDOM 161 mg/dL (74-106); POTASSIUM 4.3 mmol/L (3.5-5.1); SGOT/AST 40 U/L (15-37); SGPT/ALT 63 U/L (13-61); SODIUM 133 mmol/L (136-145); TOT PROT 8.1 g/dl (6.4-8.2)
--- NOTE | 2018-10-10 09:41 | PN ---
Progress Note, Physician Chief Complaint: C/O hicuff History of Present Illness: Case discussed with Dr Gannon advised port insertion for chemo - Current Medication List Current Medications: Active Medications Al Hydroxide/Mg Hydroxide (Mylanta Oral Suspension -) 30 ml PO TID@0600,1200, 1800 [facility] Last Admin: 10/10/18 05:38 Dose: 30 ml Allopurinol (Zyloprim -) 100 mg PO DAILY [facility] Last Admin: 10/09/18 10:38 Dose: 100 mg Amlodipine Besylate (Norvasc -) 10 mg PO DAILY [facility] Last Admin: 10/09/18 10:37 Dose: 10 mg Atorvastatin Calcium (Lipitor -) 40 mg PO HS [facility] Last Admin: 10/09/18 21:26 Dose: 40 mg Carbamazepine (Tegretol Xr -) 400 mg PO BID [facility] Last Admin: 10/09/18 21:28 Dose: 400 mg Clonidine (Catapres -) 0.2 mg PO DAILY [facility] Last Admin: 10/09/18 10:38 Dose: 0.2 mg Divalproex Sodium (Depakote -) 1,000 mg PO BID [facility] Last Admin: 10/09/18 21:27 Dose: 1,000 mg Potassium Chloride/Dextrose/Sod Cl (D5-1/2ns+10 Meq Kcl -) 10 meq in 1,000 mls @ 100 mls/hr IV ASDIR [facility] Last Admin: 10/10/18 02:04 Dose: 100 mls/hr Lidocaine (Lidoderm Patch -) 1 patch TP DAILY [facility] Last Admin: 10/09/18 10:40 Dose: 1 patch Losartan Potassium (Cozaar -) 100 mg PO BID [facility] Last Admin: 10/09/18 21:26 Dose: 100 mg Miscellaneous (Lidoderm Patch Removal) 1 each MC DAILY@2200 [facility] Last Admin: 10/09/18 21:28 Dose: 1 each Ondansetron HCl (Zofran Injection) 4 mg IVPUSH Q6H PRN PRN Reason: NAUSEA AND/OR VOMITING Last Admin: 10/10/18 06:26 Dose: 4 mg Oxybutynin Chloride (Ditropan -) 5 mg PO BID [facility] Last Admin: 10/09/18 21:29 Dose: 5 mg Oxycodone HCl (Roxicodone -) 5 mg PO Q4H PRN PRN Reason: PAIN LEVEL 4 - 6 Last Admin: 10/10/18 03:48 Dose: 5 mg Oxycodone HCl (Oxycontin -) 10 mg PO BID [facility] Last Admin: 10/09/18 21:27 Dose: 10 mg Pantoprazole Sodium (Protonix Iv) 40 mg IVPUSH BID [facility] Last Admin: 10/09/18 21:26 Dose: 40 mg Tamsulosin HCl (Flomax -) 0.4 mg PO DAILY@0830 [facility] Last Admin: 10/09/18 08:51 Dose: 0.4 mg Topiramate (Topamax -) 100 mg PO BID [facility] Last Admin: 10/09/18 21:28 Dose: 100 mg - Objective Vital Signs: Vital Signs Temperature 98.1 F 10/10/18 09:00 Pulse Rate 105 H 10/10/18 09:00 Respiratory Rate 18 10/10/18 09:00 Blood Pressure 161/103 H 10/10/18 09:00 O2 Sat by Pulse Oximetry (%) 98 10/09/18 21:00 Constitutional: Yes: Moderate Distress Eyes: Yes: WNL HENT: Yes: WNL Neck: Yes: WNL Cardiovascular: Yes: WNL Respiratory: Yes: WNL Gastrointestinal: Yes: Hypoactive Bowel Sounds Genitourinary: Yes: WNL Neurological: Yes: Alert (Consult Dr Mariano for Port insrtion) Labs: CBC, BMP 10/09/18 07:10 10/10/18 06:00 INR, PTT INR 1.09 (0.83-1.09) 09/30/18 06:20
[2018-10-10] MEDS: LIDOCAINE 5% TOPICAL PATCH TP SCH ×2 (10:00→10:11)
[2018-10-10] MEDS: cloNIDine HCL 0.1 MG TABLET PO SCH (10:09)
[2018-10-10] MEDS: amLODIPine BESYLATE 10 MG TABLET (FP) PO SCH (10:09)
[2018-10-10] MEDS: ALLOPURINOL 100 MG TABLET (FP) PO SCH (10:09)
[2018-10-10] MEDS: PANTOPRAZOLE SODIUM 40 MG VIAL IVPUSH SCH ×2 (10:09→23:01)
[2018-10-10] MEDS: LOSARTAN POTASSIUM 50 MG TABLET (FP) PO SCH ×2 (10:09→23:02)
[2018-10-10] MEDS: oxyCODONE HCL 10 MG SUSTAINED ACTING TABLET PO SCH ×2 (10:09→23:01)
[2018-10-10] MEDS: TAMSULOSIN HCL 0.4 MG CAP PO SCH (10:09)
[2018-10-10] MEDS: DIVALPROEX SODIUM 500 MG TABLET E.C. PO SCH ×2 (10:11→23:02)
[2018-10-10] MEDS: carBAMazepine XR 400 MG TAB.ER.12H PO SCH ×2 (10:11→23:02)
[2018-10-10] MEDS: OXYBUTYNIN CHLORIDE 5 MG TABLET PO SCH ×2 (10:12→23:02)
[2018-10-10] MEDS: TOPIRAMATE 100 MG TABLET PO SCH ×2 (10:12→23:02)
[2018-10-10] MEDS ORDERED: PT OWN MED DRAWER 7, Y5N ONE ×3 (11:12→20:45)
--- NOTE | 2018-10-10 11:53 | PATH ---
Cytology Non-Gynecological Report Patient Name: TC MCCRARY Med. Rec. #: [id number] /Age/Gender: 1950 (Age: 68) / M Account: [id number] Location: [address] [place] [address]/[facility] Taken: 10/07/2018 Received: 10/07/2018 Reported: 10/10/2018 Physicians: Rachael Morris M.D. Specimen(s) Received PERITONEAL WASHING Clinical History Poorly differentiated carcinoma stomach Final Diagnosis PERITONEAL WASHING FOR CYTOLOGY: SATISFACTORY FOR EVALUATION. NO MALIGNANT CELLS IDENTIFIED. MESOTHELIAL CELLS AND LYMPHOCYTES PRESENT. Comment: See concurrent material ([id number]). Prior materials noted Electronically Signed Vanesa De Los Santos M.D. Gross Description Approximately 250 cc of yellow fluid received fixed in 50% alcohol. One cytofunnel prepared and Pap stained. One cellblock prepared.
--- NOTE | 2018-10-10 12:52 | SPA.PREOP ---
- PRE-OP NOTE Dx: Stage 4 Adenocarcinoma (stomach) Planned Procedure: Singlu lumen Portocath Placement Surgeon: James Mariano Last Vital Signs Temp Pulse Resp BP Pulse Ox 98.1 F 105 H 18 161/103 H 94 L 10/10/18 09:00 10/10/18 09:00 10/10/18 09:00 10/10/18 09:00 10/10/18 10:00 Lab Results WBC 8.7 K/mm3 (4.0-10.0) 10/09/18 07:10 RBC 4.45 M/mm3 (4.00-5.60) 10/09/18 07:10 Hgb 14.5 GM/dL (11.7-16.9) 10/09/18 07:10 Hct 42.7 % (35.4-49) 10/09/18 07:10 MCV 95.9 fl (80-96) 10/09/18 07:10 MCHC 33.9 g/dl (32.0-35.9) 10/09/18 07:10 RDW 14.0 % (11.9-15.9) 10/09/18 07:10 Plt Count 198 K/MM3 (134-434) 10/09/18 07:10 Sodium 133 mmol/L (136-145) L 10/10/18 06:00 Potassium 4.3 mmol/L (3.5-5.1) 10/10/18 06:00 Chloride 98 mmol/L (98-107) 10/10/18 06:00 Carbon Dioxide 22 mmol/L (21-32) 10/10/18 06:00 Anion Gap 13 MMOL/L (8-16) 10/10/18 06:00 BUN 16 mg/dL (7-18) 10/10/18 06:00 Creatinine 1.2 mg/dL (0.55-1.3) 10/10/18 06:00 Random Glucose 161 mg/dL (74-106) H 10/10/18 06:00 Calcium 9.5 mg/dL (8.5-10.1) 10/10/18 06:00 Blood Type O POSITIVE 10/06/18 19:30 Antibody Screen Negative 10/06/18 16:30 INR 1.09 (0.83-1.09) 09/30/18 06:20 - ASSESSMENT/PLAN . Problem List - Problems (1) Adenocarcinoma of stomach, stage 4 Code(s): C16.9 - MALIGNANT NEOPLASM OF STOMACH, UNSPECIFIED
--- NOTE | 2018-10-10 13:03 | PN ---
Progress Note (short form) - Note Progress Note: Vascular Surgery / Dr. Mariano was consulted for a Portocath Placement. I contacted Dr. Gramajo regarding if he would like a single vs. dual lumen inserted. Dr. Gramajo asked that I check with Dr. Morris first to see if he does in fact place them. I spoke with Dr. Morris and he does and will do place SINGLE LUMEN PORTOCATH. He will schedule. Problem List - Problems (1) Adenocarcinoma of stomach, stage 4 Code(s): C16.9 - MALIGNANT NEOPLASM OF STOMACH, UNSPECIFIED
[2018-10-10] MEDS ORDERED: D5-1/2NS+10 MEQ KCL - 10 MEQ/1,000 ML INFUS.BAG IV SCH (13:45)
--- NOTE | 2018-10-10 15:19 | PATH ---
Surgical Pathology Report Patient Name: TC MCCRARY Med. Rec. #: [id number] /Age/Gender: 1950 (Age: 68) / M Account: [id number] Location: [address] [place] [address] Taken: 10/07/2018 Received: 10/07/2018 Reported: 10/10/2018 Physicians: Rachael Morris M.D. Specimen(s) Received LIVER NODULE BIOPSY, RIGHT Clinical History Carcinoma of stomach Final Diagnosis LIVER NODULE, RIGHT, BIOPSY: SMALL CLUSTER OF DILATED BILE DUCTS IN A BACKGROUND OF DENSE FIBROUS TISSUE. NO DEFINITIVE MALIGNANCY IDENTIFED. SEE COMMENT. Comment: Significant cytologic atypia is not identified. Deeper levels have been examined. 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 Suggest clinical correlation. See concurrent material ([id number]). Electronically Signed Vanesa De Los Santos M.D. Gross Description Received in formalin, labeled "right liver nodule biopsy" is a zhong, irregular portion of soft tissue measuring 0.3 cm. in greatest dimension. The specimen is submitted in toto in one cassette. /10/07/201810/07/2018
[2018-10-10] MEDS ORDERED: SIMETHICONE 80 MG TAB.CHEW (FP) PO ONE (17:15)
--- NOTE | 2018-10-10 17:15 | PN ---
Physical Exam: SUBJECTIVE: Patient seen and examined; still with abdominal distension; s/p emena; s/p BM ; states he vomited yesterday; hard to keep food down; OBJECTIVE: Vital Signs Period Temp Pulse Resp BP Sys/Cota Pulse Ox Last 24 Hr 97.9 F-99.1 F 95-114 18-20 142-161/87-103 94-98 GENERAL: The patient is laying in bed; NECK: Trachea midline, full range of motion, supple. LUNGS: Breath sounds equal, clear to auscultation bilaterally, no wheezes, no crackles, no accessory muscle use. HEART: Regular rate and rhythm, S1, S2 without murmur, rub or gallop. ABDOMEN: mid epigastric tenderness; very distended rebound, no hepatosplenomegaly, no masses. EXTREMITIES: 2+ pulses, warm, well-perfused, no edema. NEUROLOGICAL: Cranial nerves II through XII grossly intact. Normal speech, gait not observed. Laboratory Results - last 24 hr 10/10/18 06:00 Sodium 133 L Potassium 4.3 Chloride 98 Carbon Dioxide 22 Anion Gap 13 BUN 16 Creatinine 1.2 Creat Clearance w eGFR > 60 Random Glucose 161 H Calcium 9.5 Total Bilirubin 0.7 AST 40 H ALT 63 H Alkaline Phosphatase 233 H Total Protein 8.1 Albumin 3.1 L Active Medications Generic Name Dose Route Start Last Admin Trade Name Freq PRN Reason Stop Dose Admin Al Hydroxide/Mg Hydroxide 30 ml 10/07/18 18:00 10/10/18 15:03 Mylanta Oral Suspension - PO 30 ml TID@0600,1200,1800 AMINTA Administration Allopurinol 100 mg 10/08/18 10:00 10/10/18 10:09 Zyloprim - PO 100 mg DAILY AMINTA Administration Amlodipine Besylate 10 mg 10/07/18 14:00 10/10/18 10:09 Norvasc - PO 10 mg DAILY AMINTA Administration Atorvastatin Calcium 40 mg 10/07/18 22:00 10/09/18 21:26 Lipitor - PO 40 mg HS AMINTA Administration Carbamazepine 400 mg 10/07/18 14:00 10/10/18 10:11 Tegretol Xr - PO 400 mg BID AMINTA Administration Chlorpromazine HCl 50 mg 10/10/18 09:42 10/10/18 11:18 Thorazine Injection - IM 50 mg Q6H PRN Administration NAUSEA AND/OR VOMITING Clonidine 0.2 mg 10/07/18 14:00 10/10/18 10:09 Catapres - PO 0.2 mg DAILY AMINTA Administration Divalproex Sodium 1,000 mg 10/07/18 14:00 10/10/18 10:11 Depakote - PO 1,000 mg BID AMINTA Administration Potassium Chloride/Dextrose/Sod Cl 10 meq in 1,000 mls @ 83 mls/hr 10/10/18 13 :45 10/10/18 15:01 D5-1/2ns+10 Meq Kcl - IV 83 mls/hr ASDIR AMINTA Administration Lidocaine 1 patch 10/08/18 10:00 10/10/18 10:00 Lidoderm Patch - TP Not Given DAILY AMINTA Losartan Potassium 100 mg 10/07/18 14:00 10/10/18 10:09 Cozaar - PO 100 mg BID AMINTA Administration Miscellaneous 1 each 10/07/18 22:00 10/09/18 21:28 Lidoderm Patch Removal MC 1 each DAILY@2200 AMINTA Administration Ondansetron HCl 4 mg 10/09/18 23:18 10/10/18 14:38 Zofran Injection IVPUSH 4 mg Q6H PRN Administration NAUSEA AND/OR VOMITING Oxybutynin Chloride 5 mg 10/07/18 14:00 10/10/18 10:12 Ditropan - PO 5 mg BID AMINTA Administration Oxycodone HCl 5 mg 10/07/18 13:09 10/10/18 03:48 Roxicodone - PO 5 mg Q4H PRN Administration PAIN LEVEL 4 - 6 Oxycodone HCl 10 mg 10/07/18 22:00 10/10/18 10:09 Oxycontin - PO 10 mg BID AMINTA Administration Pantoprazole Sodium 40 mg 10/07/18 22:00 10/10/18 10:09 Protonix Iv IVPUSH 40 mg BID AMINTA Administration Simethicone 80 mg 10/10/18 17:15 Mylicon - PO ONCE AMINTA Tamsulosin HCl 0.4 mg 10/07/18 14:00 10/10/18 10:09 Flomax - PO 0.4 mg DAILY@0830 AM[facility]TA Administration Topiramate 100 mg 10/07/18 14:00 10/10/18 10:12 Topamax - PO 100 mg BID AMINTA Administration ASSESSMENT/PLAN: This is a 68 year old male with a history of epilepsy, htn, bph who presents with bloating and RLQ pain, found to have a large prepyloric ulcer ; suspect malignancy. Abdominal pain Large prepyloric ulcer Adenocarcinoma of the stomach Gout JERRELL -tissue biopsy +for adeno Ca of the stomch -po intake as tolerated; IVF -staging CT chest/abd/pelvis - s/p laparoscopic surgery for barbara biopsies, sub diaphragmatic and peritoneal biopsies. -with persistent abdominal distention after BM; will repeat abdominal xray; r/o sbo -plan for chemo port placement Visit type - Emergency Visit Emergency Visit: Yes ED Registration Date: 09/28/18 Care time: The patient presented to the Emergency Department on the above date and was hospitalized for further evaluation of their emergent condition. - New Patient This patient is new to me today: No - Critical Care Critical Care patient: No
[2018-10-10] MEDS ORDERED: INSULIN (LEVEMIR) 100 UNITS/ML UNITS SQ ONE (17:47)
--- NOTE | 2018-10-10 18:48 | PN ---
Progress Note, Physician Chief Complaint: Patient is unable to eat, feels nauseous. Abdomen is distended , but soft, not tender, Abdominal Xray just done: no free air, Air is small bowel and large bowel seen. Patient is planned to have a poratcath for administration of chemotherapy , tomorrow. The procedure was explained, to the patient and his , with risks, of pneumothorax, bleeding, etc. - Current Medication List Current Medications: Active Medications Al Hydroxide/Mg Hydroxide (Mylanta Oral Suspension -) 30 ml PO TID@0600,1200, 1800 [facility] Last Admin: 10/10/18 17:15 Dose: Not Given Allopurinol (Zyloprim -) 100 mg PO DAILY [facility] Last Admin: 10/10/18 10:09 Dose: 100 mg Amlodipine Besylate (Norvasc -) 10 mg PO DAILY [facility] Last Admin: 10/10/18 10:09 Dose: 10 mg Atorvastatin Calcium (Lipitor -) 40 mg PO HS [facility] Last Admin: 10/09/18 21:26 Dose: 40 mg Carbamazepine (Tegretol Xr -) 400 mg PO BID [facility] Last Admin: 10/10/18 10:11 Dose: 400 mg Chlorpromazine HCl (Thorazine Injection -) 50 mg IM Q6H PRN PRN Reason: NAUSEA AND/OR VOMITING Last Admin: 10/10/18 11:18 Dose: 50 mg Clonidine (Catapres -) 0.2 mg PO DAILY [facility] Last Admin: 10/10/18 10:09 Dose: 0.2 mg Divalproex Sodium (Depakote -) 1,000 mg PO BID [facility] Last Admin: 10/10/18 10:11 Dose: 1,000 mg Potassium Chloride/Dextrose/Sod Cl (D5-1/2ns+10 Meq Kcl -) 10 meq in 1,000 mls @ 83 mls/hr IV ASDIR [facility] Last Admin: 10/10/18 15:01 Dose: 83 mls/hr Lidocaine (Lidoderm Patch -) 1 patch TP DAILY [facility] Last Admin: 10/10/18 10:00 Dose: Not Given Losartan Potassium (Cozaar -) 100 mg PO BID [facility] Last Admin: 10/10/18 10:09 Dose: 100 mg Miscellaneous (Lidoderm Patch Removal) 1 each MC DAILY@2200 [facility] Last Admin: 10/09/18 21:28 Dose: 1 each Ondansetron HCl (Zofran Injection) 4 mg IVPUSH Q6H PRN PRN Reason: NAUSEA AND/OR VOMITING Last Admin: 10/10/18 14:38 Dose: 4 mg Oxybutynin Chloride (Ditropan -) 5 mg PO BID [facility] Last Admin: 10/10/18 10:12 Dose: 5 mg Oxycodone HCl (Roxicodone -) 5 mg PO Q4H PRN PRN Reason: PAIN LEVEL 4 - 6 Last Admin: 10/10/18 03:48 Dose: 5 mg Oxycodone HCl (Oxycontin -) 10 mg PO BID [facility] Last Admin: 10/10/18 10:09 Dose: 10 mg Pantoprazole Sodium (Protonix Iv) 40 mg IVPUSH BID [facility] Last Admin: 10/10/18 10:09 Dose: 40 mg Tamsulosin HCl (Flomax -) 0.4 mg PO DAILY@0830 [facility] Last Admin: 10/10/18 10:09 Dose: 0.4 mg Topiramate (Topamax -) 100 mg PO BID [facility] Last Admin: 10/10/18 10:12 Dose: 100 mg - Objective Vital Signs: Vital Signs Temperature 97.9 F 10/10/18 14:00 Pulse Rate 114 H 10/10/18 14:00 Respiratory Rate 18 10/10/18 14:00 Blood Pressure 142/89 10/10/18 14:00 O2 Sat by Pulse Oximetry (%) 94 L 10/10/18 10:00 Labs: CBC, BMP 10/09/18 07:10 10/10/18 06:00 INR, PTT INR 1.09 (0.83-1.09) 09/30/18 06:20 Problem List - Problems (1) Abdominal pain Code(s): R10.9 - UNSPECIFIED ABDOMINAL PAIN Qualifiers: Abdominal location: right upper quadrant Qualified Code(s): R10.11 - Right upper quadrant pain (2) Gastric ulcer Code(s): K25.9 - GASTRIC ULCER, UNSP ACUTE OR CHRONIC, W/O HEMOR OR PERF Qualifiers: Gastric ulcer complication status: without hemorrhage or perforation (3) Essential (primary) hypertension Code(s): I10 - ESSENTIAL (PRIMARY) HYPERTENSION (4) Seizure disorder Code(s): G40.909 - EPILEPSY, UNSP, NOT INTRACTABLE, WITHOUT STATUS EPILEPTICUS
--- NOTE | 2018-10-10 20:21 | EKG ---
Test Reason : Blood Pressure : / mmHG Vent. Rate : 115 BPM Atrial Rate : 115 BPM P-R Int : 172 ms QRS Dur : 068 ms QT Int : 294 ms P-R-T Axes : 049 033 061 degrees QTc Int : 406 ms SINUS TACHYCARDIA OTHERWISE NORMAL ECG WHEN COMPARED WITH ECG OF 10-OCT-2018 01:38, NO SIGNIFICANT CHANGE WAS FOUND Confirmed by KYLE MERIDA MD ([id number]) on 10/10/2018 8:21:03 PM Referred By: JOSE RAZA Confirmed By:KYLE MERIDA MD
--- NOTE | 2018-10-10 21:25 | PN ---
Progress Note (short form) - Note Progress Note: patient seen and examined c/o epigastric pain Last Vital Signs Temp Pulse Resp BP Pulse Ox 98.3 F 105 H 18 148/81 94 L 10/10/18 22:00 10/10/18 22:00 10/10/18 22:00 10/10/18 22:00 10/10/18 21:00 Cor: RSR, No murmurs, No gallops Lungs: Clear to P&A Abd: Soft, Normal bowel sounds, + distention Ext:No significant edema Labs/meds reviewed A/P gastric adenoca. s/p laparoscopic surgery for barbara biopsies, sub diaphragmatic and peritoneal biopsies. AXR--no free air. dilated bowel loops for port-a-cath placement discussed overall situation with
--- NOTE | 2018-10-10 21:26 | EKG ---
Test Reason : Blood Pressure : / mmHG Vent. Rate : 097 BPM Atrial Rate : 097 BPM P-R Int : 176 ms QRS Dur : 076 ms QT Int : 312 ms P-R-T Axes : 055 026 056 degrees QTc Int : 396 ms NORMAL SINUS RHYTHM POSSIBLE LEFT ATRIAL ENLARGEMENT BORDERLINE ECG WHEN COMPARED WITH ECG OF 30-SEP-2018 09:44, VENT. RATE HAS INCREASED BY 33 BPM Confirmed by FUAD SPANN, KYLE ([id number]) on 10/10/2018 9:25:44 PM Referred By: Confirmed By:KYLE MERIDA MD
[2018-10-10] MEDS: ATORVASTATIN CA 40 MG TABLET (FP) PO SCH (23:01)
[2018-10-10] MEDS: LIDOCAINE PATCH REMOVAL MC SCH (23:27)
[2018-10-11] MEDS: MAG HYDROX/AL HYDROX/SIMETH 30 ML UNIT-DOSE CUP PO SCH ×4 (05:22→18:12)
[2018-10-11] MEDS ORDERED: LIDOCAINE HCL 1%, 10 MG/ML (20ML VIAL) ONE (07:07)
[2018-10-11] MEDS ORDERED: MIDAZOLAM HCL 2 MG/2 ML SINGLE DOSE VIAL ONE ×2 (07:47→08:16)
[2018-10-11] MEDS ORDERED: ceFAZolin SODIUM 1 GM VIAL IVPB ONE (07:52)
[2018-10-11] MEDS ORDERED: SUCCINYLCHOLINE CHLORIDE 200 MG/10 ML VIAL ONE (07:59)
[2018-10-11] MEDS ORDERED: LIDOCAINE HCL 1%, 10 MG/ML (50 mL VIAL) IJ ONE (08:09)
--- NOTE | 2018-10-11 09:06 | PN ---
Progress Note, Physician History of Present Illness: Scheduled for Port insertion by Dr Morris to day in the OR - Current Medication List Current Medications: Active Medications Al Hydroxide/Mg Hydroxide (Mylanta Oral Suspension -) 30 ml PO TID@0600,1200, 1800 [facility] Last Admin: 10/11/18 05:22 Dose: Not Given Allopurinol (Zyloprim -) 100 mg PO DAILY [facility] Last Admin: 10/10/18 10:09 Dose: 100 mg Amlodipine Besylate (Norvasc -) 10 mg PO DAILY [facility] Last Admin: 10/10/18 10:09 Dose: 10 mg Atorvastatin Calcium (Lipitor -) 40 mg PO HS [facility] Last Admin: 10/10/18 23:01 Dose: 40 mg Carbamazepine (Tegretol Xr -) 400 mg PO BID [facility] Last Admin: 10/10/18 23:02 Dose: 400 mg Chlorpromazine HCl (Thorazine Injection -) 50 mg IM Q6H PRN PRN Reason: NAUSEA AND/OR VOMITING Last Admin: 10/10/18 11:18 Dose: 50 mg Clonidine (Catapres -) 0.2 mg PO DAILY [facility] Last Admin: 10/10/18 10:09 Dose: 0.2 mg Divalproex Sodium (Depakote -) 1,000 mg PO BID [facility] Last Admin: 10/10/18 23:02 Dose: 1,000 mg Potassium Chloride/Dextrose/Sod Cl (D5-1/2ns+10 Meq Kcl -) 10 meq in 1,000 mls @ 83 mls/hr IV ASDIR [facility] Last Admin: 10/10/18 15:01 Dose: 83 mls/hr Lidocaine (Lidoderm Patch -) 1 patch TP DAILY [facility] Last Admin: 10/10/18 10:00 Dose: Not Given Losartan Potassium (Cozaar -) 100 mg PO BID [facility] Last Admin: 10/10/18 23:02 Dose: 100 mg Miscellaneous (Lidoderm Patch Removal) 1 each MC DAILY@2200 [facility] Last Admin: 10/10/18 23:27 Dose: Not Given Ondansetron HCl (Zofran Injection) 4 mg IVPUSH Q6H PRN PRN Reason: NAUSEA AND/OR VOMITING Last Admin: 10/10/18 14:38 Dose: 4 mg Oxybutynin Chloride (Ditropan -) 5 mg PO BID [facility] Last Admin: 10/10/18 23:02 Dose: 5 mg Oxycodone HCl (Roxicodone -) 5 mg PO Q4H PRN PRN Reason: PAIN LEVEL 4 - 6 Last Admin: 10/10/18 03:48 Dose: 5 mg Oxycodone HCl (Oxycontin -) 10 mg PO BID [facility] Last Admin: 10/10/18 23:01 Dose: 10 mg Pantoprazole Sodium (Protonix Iv) 40 mg IVPUSH BID [facility] Last Admin: 10/10/18 23:01 Dose: 40 mg Tamsulosin HCl (Flomax -) 0.4 mg PO DAILY@0830 [facility] Last Admin: 10/10/18 10:09 Dose: 0.4 mg Topiramate (Topamax -) 100 mg PO BID [facility] Last Admin: 10/10/18 23:02 Dose: 100 mg - Objective Vital Signs: Vital Signs Temperature 98.0 F 10/11/18 06:00 Pulse Rate 110 H 10/11/18 06:00 Respiratory Rate 18 10/11/18 06:00 Blood Pressure 156/89 10/11/18 06:00 O2 Sat by Pulse Oximetry (%) 94 L 10/10/18 21:00 Constitutional: Yes: No Distress Eyes: Yes: WNL HENT: Yes: WNL Neck: Yes: WNL Cardiovascular: Yes: WNL Respiratory: Yes: WNL Gastrointestinal: Yes: Soft ...Rectal Exam: Yes: Deferred Genitourinary: Yes: WNL Edema: No Peripheral Pulses WNL: Yes Neurological: Yes: Alert Psychiatric: Yes: Alert Labs: CBC, BMP 10/09/18 07:10 10/10/18 06:00 INR, PTT INR 1.09 (0.83-1.09) 09/30/18 06:20 Assessment/Plan Cleared for the procedure
[2018-10-11] MEDS ORDERED: BENZOIN TINCTURE SWABSTICK TP ONE (09:12)
[2018-10-11] MEDS ORDERED: ONDANSETRON 4 MG/2 ML VIAL IVPUSH PRN ×2 (09:30→10:19)
[2018-10-11] MEDS ORDERED: LACTATED RINGERS SOLUTION 1,000 ML IV SCH ×2 (09:30→10:19)
--- NOTE | 2018-10-11 09:31 | OP ---
Operative Note - Note: Operative Date: 10/11/18 Pre-Operative Diagnosis: Carcinoma of stomach. Operation: Placement of double lumen catheter , under fluoroscopy. Implants: Double chamber port. Surgeon: Brianda Morris Anesthesia: MAC Operative Report Dictated: Yes
[2018-10-11] MEDS: ONDANSETRON 4 MG/2 ML VIAL IVPUSH PRN (11:30)
[2018-10-11] MEDS: LOSARTAN POTASSIUM 50 MG TABLET (FP) PO SCH ×3 (11:30→23:15)
[2018-10-11] MEDS: amLODIPine BESYLATE 10 MG TABLET (FP) PO SCH ×2 (11:31→17:47)
[2018-10-11] MEDS: cloNIDine HCL 0.1 MG TABLET PO SCH ×2 (11:31→17:47)
[2018-10-11] MEDS: ALLOPURINOL 100 MG TABLET (FP) PO SCH ×2 (11:31→17:49)
[2018-10-11] MEDS: OXYBUTYNIN CHLORIDE 5 MG TABLET PO SCH ×3 (11:31→23:12)
[2018-10-11] MEDS: carBAMazepine XR 400 MG TAB.ER.12H PO SCH ×3 (11:36→23:12)
[2018-10-11] MEDS: TOPIRAMATE 100 MG TABLET PO SCH ×3 (11:36→23:09)
[2018-10-11] MEDS: DIVALPROEX SODIUM 500 MG TABLET E.C. PO SCH ×3 (11:37→23:13)
[2018-10-11] MEDS: D5-1/2NS+10 MEQ KCL - 10 MEQ/1,000 ML INFUS.BAG IV SCH ×2 (11:52→12:28)
--- NOTE | 2018-10-11 12:40 | OP ---
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 OPERATIVE PROCEDURE: Placement of tunneled centrally accessed double-lumen catheter with port under fluoroscopy (placement of Port-A-Cath under fluoroscopy). SURGEON: Rachael Morris MD ANESTHESIA: Local with monitored intravenous sedation. OPERATIVE DESCRIPTION: This 68-year-old man diagnosed with locally advanced carcinoma of the stomach with obstruction of the duodenum was brought in for placement of Port-A-Cath for chemotherapy. Consent was obtained. Risks, benefits, and complications were discussed with the patient. The patient was brought to the operating room was given IV sedation and monitored by anesthesia. The chest was painted and draped. It was decided to put the port on the left side of the chest. A time-out was called. The patient was given antibiotics prior to the procedure. Also skin incision was made over the 3rd and 4th intercostal space on the left side infiltrating lidocaine through the skin and subcutaneous tissue. The incision was carried through the skin and subcutaneous fat all the way to the chest wall. A subcutaneous pocket was then created beneath the skin and subcutaneous tissue on the deep fascia. This pocket was carried all the way to the inferior border of the clavicle. A small incision was made on the inferior part of the clavicle. The left subclavian vein was then accessed through a needle using a Mini Stick. Through this, a small guidewire was introduced into the superior vena cava. This was monitored under fluoroscopy. While the Mini Stick guidewire in the superior vena cava, a larger venous catheter was introduced over this guidewire into the superior vena cava. While this larger catheter was in place, the Port-A-Cath guidewire was introduced through the sheath into the superior vena cava again monitored under fluoroscopy. The double-lumen Port-A-Cath dilator and sheath were then introduced over the guidewire into the superior vena cava again monitored under fluoroscopy. A double-lumen Port-A-Cath was then brought under the skin through the small incision in the infraclavicular region thus creating a tunnel. While this was done, the dilator and guidewire were removed leaving the sheath through the subclavian vein into the superior vena cava. Blood flowed freely through the dilator sheath, and the double-lumen Port-A-Cath was introduced through the sheath into the superior vena cava. This was again monitored under fluoroscopy. The sheath was again peeled off. The catheter was brought under the skin into the chest wall thus creating a tunnel. The excess of the catheter was then cut, and the catheter was connected to the double-lumen chamber with a locking device in place. Prior to this, the double- lumen chamber was flushed with heparinized saline and so was the catheter. There was free flow of blood through the port chambers and channels and was easily flushable with heparinized saline. The double-lumen catheter was connected to the chamber with a locking device and locked in place. There was no leak in the system. The chamber was then anchored to the chest wall with interrupted 2-0 Vicryl sutures. The wound was irrigated and had free flow of blood into the chamber and free flow of saline and heparinized saline through the chamber into the superior vena cava. When this was confirmed, the wound was closed in layers closing the deep fascia with interrupted 3-0 Vicryl sutures followed by the subcutaneous fat with buried interrupted 3-0 Vicryl sutures and skin with continuous 4-0 Monocryl sutures in a running subcuticular fashion. A small incision in the infraclavicular area was also closed in 2 layers. Estimated blood loss was less than 5-10 mL. Sponge count and instrument count were correct. Steri-Strips were applied across the incision. The patient tolerated the procedure well. A chest x-ray was obtained in the recovery room. Magalie BARTHOOLMEW/[id number] cc: Dr. J Carlos MEDRANO
[2018-10-11] MEDS ORDERED: ACETAMINOPHEN 325 MG TABLET (FP) PO ONE (13:00)
--- NOTE | 2018-10-11 13:17 | CON.ID ---
Consult Consult Specialty:: infectious diseases Referred by:: Reason for Consultation:: sepsis,fever - Past Medical History [employer]: Yes: Seizure Cardio/Vascular: Yes: HTN, Hyperlipdemia Gastrointestinal: Yes: Diverticulosis Renal/: Yes: BPH Additional Medical History: Cataracts - Past Surgical History Past Surgical History: Yes: Appendectomy, Colonoscopy - Alcohol/Substance Use Hx Alcohol Use: No History of Substance Use: reports: None - Smoking History Smoking history: Never smoked Aproximately how many cigarettes per day: 0 If you are a former smoker, when did you quit?: 1980 - Social History Usual Living Arrangement: With Spouse ADL: Independent 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 History of Recent Travel: No Home Medications - Allergies Allergies/Adverse Reactions: Allergies Allergy/AdvReac Type Severity Reaction Status Date / Time clarithromycin [From Biaxin] Allergy Verified 09/28/18 20:17 ciprofloxacin [From Cipro] AdvReac Intermediate dizziness Verified 09/28/18 11: 12 nitrofurantoin AdvReac Intermediate Verified 09/29/18 04:44 [From Macrobid] - Home Medications Home Medications: Ambulatory Orders Amlodipine Besylate [Norvasc -] 10 mg PO DAILY 05/25/15 Atorvastatin Ca [Lipitor] 40 mg PO HS 05/25/15 Carbamazepine Xr [Tegretol XR -] 400 mg PO BID 05/25/15 Clonidine HCl 1 mg PO AM 05/25/15 Divalproex [Depakote -] 1,000 mg PO BID 05/25/15 Losartan Potassium [Cozaar] 100 mg PO DAILY 05/25/15 Tamsulosin HCl [Flomax -] 0.4 mg PO BID 05/25/15 Topiramate [Topamax] 100 mg PO BID 05/25/15 Clonidine HCl 0.4 mg PO HS 10/20/16 Cyclobenzaprine HCl [Flexeril -] 5 mg PO TID PRN #12 tablet 09/12/18 Ibuprofen [Motrin -] 600 mg PO TID PRN #21 tablet 09/12/18 Family Disease History - Family Disease History Family Disease History: Diabetes: Father ( 70's was on dialysis), Heart Disease: Mother ( 87 ASHD, s/p CABG), CA: Sister (brain cancer), Other: Brother (lung nodule) Physical Exam Vital Signs: Vital Signs Temperature 101.9 F H 02/26/19 12:44 Pulse Rate 99 H 10/11/18 11:30 Respiratory Rate 18 10/11/18 11:30 Blood Pressure 163/87 10/11/18 11:30 O2 Sat by Pulse Oximetry (%) 98 10/11/18 10:45 Labs: CBC, BMP 10/09/18 07:10 10/10/18 06:00
[2018-10-11] MEDS: PIPERACILLIN/TAZOB 3.375 GM 3.375 GM in DEXTROSE 5%-WATER - 50 ML IVPB SCH ×2 (14:30→18:12)
[2018-10-11] MEDS ORDERED: PIPERACILLIN/TAZOBACTAM 3.375 GM VIAL IVPB ONE (16:36)
[2018-10-11] MEDS ORDERED: DEXTROSE 5%-WATER - 50 ML IVPB ONE (16:36)
[2018-10-11] MEDS: TAMSULOSIN HCL 0.4 MG CAP PO SCH (17:46)
[2018-10-11] MEDS: LIDOCAINE 5% TOPICAL PATCH TP SCH (17:47)
[2018-10-11] MEDS: PANTOPRAZOLE SODIUM 40 MG VIAL IVPUSH SCH ×2 (17:47→23:16)
[2018-10-11] MEDS: oxyCODONE HCL 10 MG SUSTAINED ACTING TABLET PO SCH ×2 (17:47→23:10)
--- NOTE | 2018-10-11 19:23 | PN ---
Progress Note (short form) - Note Progress Note: Patient seen and examined Extensive intra-abdominal disease found at surgery Last Vital Signs Temp Pulse Resp BP Pulse Ox 100.4 F H 121 H 20 118/60 99 10/11/18 14:19 10/11/18 14:19 10/11/18 14:10/11/18 14:10/11/18 11:30 Cor: RSR, No murmurs, No gallops Lungs diminished breath sounds Abd: distended tympanitic Ext:No significant edema Skin: No rashes, Integument intact CBC, BMP 10/09/18 07:10 10/10/18 06:00 Current Medications Generic Name Dose Route Start Last Admin Trade Name Freq PRN Reason Stop Dose Admin Al Hydroxide/Mg Hydroxide 30 ml 10/11/18 12:00 10/11/18 18:12 Mylanta Oral Suspension - PO 30 ml TID@0600,1200,1800 [facility] Administration Allopurinol 100 mg 10/11/18 11:30 10/11/18 11:31 Zyloprim - PO 100 mg DAILY [facility] Administration Amlodipine Besylate 10 mg 10/11/18 11:30 10/11/18 11:31 Norvasc - PO 10 mg DAILY [facility] Administration Atorvastatin Calcium 40 mg 10/11/18 22:00 Lipitor - PO HS [facility] Carbamazepine 400 mg 10/11/18 22:00 10/11/18 11:36 Tegretol Xr - PO 400 mg BID [facility] Administration Chlorpromazine HCl 50 mg 10/11/18 10:19 Thorazine Injection - IM Q6H PRN NAUSEA AND/OR VOMITING Clonidine 0.2 mg 10/11/18 11:30 10/11/18 11:31 Catapres - PO 0.2 mg DAILY [facility] Administration Divalproex Sodium 1,000 mg 10/11/18 22:00 10/11/18 11:37 Depakote - PO 1,000 mg BID [facility] Administration Potassium Chloride/Dextrose/Sod Cl 10 meq in 1,000 mls @ 83 mls/hr 10/11/18 10 :19 10/11/18 12:28 D5-1/2ns+10 Meq Kcl - IV 83 mls/hr ASDIR [facility] Administration Piperacillin Sod/Tazobactam 50 mls @ 100 mls/hr 10/11/18 14:30 10/11/18 18:12 Sod 3.375 gm/ Dextrose IVPB 100 mls/hr Q8H-IV [facility] Administration Protocol Lidocaine 1 patch 10/12/18 10:00 Lidoderm Patch - TP DAILY [facility] Losartan Potassium 100 mg 10/11/18 11:45 10/11/18 11:30 Cozaar - PO 100 mg BID [facility] Administration Miscellaneous 1 each 10/11/18 22:00 Lidoderm Patch Removal MC DAILY@2200 [facility] Ondansetron HCl 4 mg 10/11/18 10:19 10/11/18 11:30 Zofran Injection IVPUSH 4 mg Q6H PRN Administration NAUSEA AND/OR VOMITING Oxybutynin Chloride 5 mg 10/11/18 11:30 10/11/18 11:31 Ditropan - PO 5 mg BID [facility] Administration Oxycodone HCl 5 mg 10/11/18 10:19 Roxicodone - PO Q4H PRN PAIN LEVEL 4 - 6 Oxycodone HCl 10 mg 10/11/18 22:00 Oxycontin - PO BID [facility] Pantoprazole Sodium 40 mg 10/11/18 22:00 Protonix Iv IVPUSH BID [facility] Tamsulosin HCl 0.4 mg 10/12/18 08:30 Flomax - PO DAILY@0830 [facility] Topiramate 100 mg 10/11/18 22:00 10/11/18 11:36 Topamax - PO 100 mg BID [facility] Administration Impression: Gastric ca S/P laparoscopic surgery Abnormal CT _fluid collection ?? abscess formation - Seen by ID - begun on Antibiotic therapy Will need to reiview CT with IR.
[2018-10-11] MEDS ORDERED: OXYBUTYNIN CHLORIDE 5 MG TABLET PO SCH (22:00)
[2018-10-11] MEDS ORDERED: LOSARTAN POTASSIUM 50 MG TABLET (FP) PO SCH (22:00)
[2018-10-11] MEDS ORDERED: LIDOCAINE PATCH REMOVAL MC SCH (22:00)
[2018-10-11] MEDS: ATORVASTATIN CA 40 MG TABLET (FP) PO SCH (23:54)
[2018-10-12] MEDS: LIDOCAINE PATCH REMOVAL MC SCH ×2 (00:10→22:51)
[2018-10-12] MEDS ORDERED: PIPERACILLIN/TAZOBACTAM 3.375 GM VIAL IVPB ONE ×3 (02:06→17:38)
[2018-10-12] MEDS ORDERED: DEXTROSE 5%-WATER - 50 ML IVPB ONE ×3 (02:06→17:38)
[2018-10-12] MEDS: PIPERACILLIN/TAZOB 3.375 GM 3.375 GM in DEXTROSE 5%-WATER - 50 ML IVPB SCH ×3 (02:49→17:39)
[2018-10-12] MEDS: D5-1/2NS+10 MEQ KCL - 10 MEQ/1,000 ML INFUS.BAG IV SCH ×3 (04:11→17:40)
[2018-10-12] MEDS: MAG HYDROX/AL HYDROX/SIMETH 30 ML UNIT-DOSE CUP PO SCH ×3 (06:47→17:40)
[2018-10-12] MEDS: TAMSULOSIN HCL 0.4 MG CAP PO SCH (08:31)
[2018-10-12] MEDS: oxyCODONE HCL 5 MG TABLET PO PRN (08:31)
--- NOTE | 2018-10-12 09:17 | PN ---
Progress Note, Physician Chief Complaint: C/O chest pain History of Present Illness: Had fever yesterday , evluated by ID on Zosyn - Current Medication List Current Medications: Active Medications Al Hydroxide/Mg Hydroxide (Mylanta Oral Suspension -) 30 ml PO TID@0600,1200, 1800 [facility] Last Admin: 10/12/18 06:47 Dose: Not Given Allopurinol (Zyloprim -) 100 mg PO DAILY [facility] Last Admin: 10/11/18 11:31 Dose: 100 mg Amlodipine Besylate (Norvasc -) 10 mg PO DAILY [facility] Last Admin: 10/11/18 11:31 Dose: 10 mg Atorvastatin Calcium (Lipitor -) 40 mg PO HS [facility] Last Admin: 10/11/18 23:54 Dose: 40 mg Carbamazepine (Tegretol Xr -) 400 mg PO BID [facility] Last Admin: 10/11/18 23:12 Dose: 400 mg Chlorpromazine HCl (Thorazine Injection -) 50 mg IM Q6H PRN PRN Reason: NAUSEA AND/OR VOMITING Clonidine (Catapres -) 0.2 mg PO DAILY [facility] Last Admin: 10/11/18 11:31 Dose: 0.2 mg Divalproex Sodium (Depakote -) 1,000 mg PO BID [facility] Last Admin: 10/11/18 23:13 Dose: 1,000 mg Potassium Chloride/Dextrose/Sod Cl (D5-1/2ns+10 Meq Kcl -) 10 meq in 1,000 mls @ 83 mls/hr IV ASDIR [facility] Last Admin: 10/12/18 04:11 Dose: 83 mls/hr Piperacillin Sod/Tazobactam (Sod 3.375 gm/ Dextrose) 50 mls @ 100 mls/hr IVPB Q8H-IV [facility]; Protocol Last Admin: 10/12/18 02:49 Dose: 100 mls/hr Lidocaine (Lidoderm Patch -) 1 patch TP DAILY [facility] Losartan Potassium (Cozaar -) 100 mg PO BID [facility] Last Admin: 10/11/18 23:15 Dose: 100 mg Miscellaneous (Lidoderm Patch Removal) 1 each MC DAILY@2200 [facility] Last Admin: 10/12/18 00:10 Dose: Not Given Ondansetron HCl (Zofran Injection) 4 mg IVPUSH Q6H PRN PRN Reason: NAUSEA AND/OR VOMITING Last Admin: 10/11/18 11:30 Dose: 4 mg Oxybutynin Chloride (Ditropan -) 5 mg PO BID [facility] Last Admin: 10/11/18 23:12 Dose: 5 mg Oxycodone HCl (Roxicodone -) 5 mg PO Q4H PRN PRN Reason: PAIN LEVEL 4 - 6 Last Admin: 10/12/18 08:31 Dose: 5 mg Oxycodone HCl (Oxycontin -) 10 mg PO BID [facility] Last Admin: 10/11/18 23:10 Dose: 10 mg Pantoprazole Sodium (Protonix Iv) 40 mg IVPUSH BID [facility] Last Admin: 10/11/18 23:16 Dose: 40 mg Tamsulosin HCl (Flomax -) 0.4 mg PO DAILY@829 [facility] Last Admin: 10/12/18 08:31 Dose: 0.4 mg Topiramate (Topamax -) 100 mg PO BID [facility] Last Admin: 10/11/18 23:09 Dose: 100 mg - Objective Vital Signs: Vital Signs Temperature 98.5 F 10/12/18 06:00 Pulse Rate 91 H 10/12/18 06:00 Respiratory Rate 20 10/12/18 06:00 Blood Pressure 104/48 L 10/12/18 06:00 O2 Sat by Pulse Oximetry (%) 99 10/11/18 21:00 Constitutional: Yes: No Distress Eyes: Yes: WNL HENT: Yes: WNL Neck: Yes: WNL Cardiovascular: Yes: WNL Respiratory: Yes: WNL Gastrointestinal: Yes: Hypoactive Bowel Sounds ...Rectal Exam: Yes: Deferred Genitourinary: Yes: WNL Edema: No Labs: CBC, BMP 10/09/18 07:10 10/10/18 06:00 INR, PTT INR 1.09 (0.83-1.09) 09/30/18 06:20 Assessment/Plan Stat EKG ordered
[2018-10-12] MEDS ORDERED: ALLOPURINOL 100 MG TABLET (FP) PO SCH (10:00)
[2018-10-12] MEDS ORDERED: cloNIDine HCL 0.1 MG TABLET PO SCH (10:00)
[2018-10-12] MEDS ORDERED: amLODIPine BESYLATE 10 MG TABLET (FP) PO SCH (10:00)
--- NOTE | 2018-10-12 10:44 | EKG ---
Test Reason : Blood Pressure : / mmHG Vent. Rate : 090 BPM Atrial Rate : 090 BPM P-R Int : 186 ms QRS Dur : 074 ms QT Int : 346 ms P-R-T Axes : 040 023 076 degrees QTc Int : 423 ms NORMAL SINUS RHYTHM NONSPECIFIC T WAVE ABNORMALITY ABNORMAL ECG WHEN COMPARED WITH ECG OF 10-OCT-2018 12:57, NO SIGNIFICANT CHANGE WAS FOUND Confirmed by KARISSA CAMARGO MD ([id number]) on 10/12/2018 10:43:55 AM Referred By: LUZ MARINA GRIGSBY Confirmed By:KARISSA CAMARGO MD
[2018-10-12] MEDS ORDERED: PT OWN MED DRAWER 7, Y5N ONE ×2 (11:06→23:23)
[2018-10-12] MEDS: oxyCODONE HCL 10 MG SUSTAINED ACTING TABLET PO SCH ×2 (11:25→22:46)
[2018-10-12] MEDS: ONDANSETRON 4 MG/2 ML VIAL IVPUSH PRN ×2 (11:25→23:26)
[2018-10-12] MEDS: amLODIPine BESYLATE 10 MG TABLET (FP) PO SCH (11:25)
[2018-10-12] MEDS: OXYBUTYNIN CHLORIDE 5 MG TABLET PO SCH ×2 (11:25→22:28)
[2018-10-12] MEDS: cloNIDine HCL 0.1 MG TABLET PO SCH (11:25)
[2018-10-12] MEDS: LOSARTAN POTASSIUM 50 MG TABLET (FP) PO SCH ×2 (11:26→22:27)
[2018-10-12] MEDS: PANTOPRAZOLE SODIUM 40 MG VIAL IVPUSH SCH ×2 (11:26→22:29)
[2018-10-12] MEDS: ALLOPURINOL 100 MG TABLET (FP) PO SCH (11:26)
[2018-10-12] MEDS: LIDOCAINE 5% TOPICAL PATCH TP SCH (11:27)
[2018-10-12] MEDS: TOPIRAMATE 100 MG TABLET PO SCH ×2 (11:27→22:47)
[2018-10-12] MEDS: DIVALPROEX SODIUM 500 MG TABLET E.C. PO SCH ×2 (11:27→22:28)
[2018-10-12] MEDS: carBAMazepine XR 400 MG TAB.ER.12H PO SCH ×2 (11:28→22:29)
--- NOTE | 2018-10-12 13:15 | PN ---
Progress Note, Physician History of Present Illness: patient still not feeling too well vomiting has been afebrile nauseous - Current Medication List Current Medications: Active Medications Al Hydroxide/Mg Hydroxide (Mylanta Oral Suspension -) 30 ml PO TID@0600,1200, 1800 [facility] Last Admin: 10/12/18 11:27 Dose: 30 ml Allopurinol (Zyloprim -) 100 mg PO DAILY [facility] Last Admin: 10/12/18 11:26 Dose: 100 mg Amlodipine Besylate (Norvasc -) 10 mg PO DAILY [facility] Last Admin: 10/12/18 11:25 Dose: 10 mg Atorvastatin Calcium (Lipitor -) 40 mg PO HS [facility] Last Admin: 10/11/18 23:54 Dose: 40 mg Carbamazepine (Tegretol Xr -) 400 mg PO BID [facility] Last Admin: 10/12/18 11:28 Dose: 400 mg Chlorpromazine HCl (Thorazine Injection -) 50 mg IM Q6H PRN PRN Reason: NAUSEA AND/OR VOMITING Clonidine (Catapres -) 0.2 mg PO DAILY [facility] Last Admin: 10/12/18 11:25 Dose: 0.2 mg Divalproex Sodium (Depakote -) 1,000 mg PO BID [facility] Last Admin: 10/12/18 11:27 Dose: 1,000 mg Potassium Chloride/Dextrose/Sod Cl (D5-1/2ns+10 Meq Kcl -) 10 meq in 1,000 mls @ 83 mls/hr IV ASDIR [facility] Last Admin: 10/12/18 11:26 Dose: Not Given Piperacillin Sod/Tazobactam (Sod 3.375 gm/ Dextrose) 50 mls @ 100 mls/hr IVPB Q8H-IV [facility]; Protocol Last Admin: 10/12/18 11:26 Dose: 100 mls/hr Lidocaine (Lidoderm Patch -) 1 patch TP DAILY [facility] Last Admin: 10/12/18 11:27 Dose: 1 patch Losartan Potassium (Cozaar -) 100 mg PO BID [facility] Last Admin: 10/12/18 11:26 Dose: 100 mg Miscellaneous (Lidoderm Patch Removal) 1 each MC DAILY@2200 [facility] Last Admin: 10/12/18 00:10 Dose: Not Given Ondansetron HCl (Zofran Injection) 4 mg IVPUSH Q6H PRN PRN Reason: NAUSEA AND/OR VOMITING Last Admin: 10/12/18 11:25 Dose: 4 mg Oxybutynin Chloride (Ditropan -) 5 mg PO BID [facility] Last Admin: 10/12/18 11:25 Dose: 5 mg Oxycodone HCl (Roxicodone -) 5 mg PO Q4H PRN PRN Reason: PAIN LEVEL 4 - 6 Last Admin: 10/12/18 08:31 Dose: 5 mg Oxycodone HCl (Oxycontin -) 10 mg PO BID [facility] Last Admin: 10/12/18 11:25 Dose: 10 mg Pantoprazole Sodium (Protonix Iv) 40 mg IVPUSH BID [facility] Last Admin: 10/12/18 11:26 Dose: 40 mg Tamsulosin HCl (Flomax -) 0.4 mg PO DAILY@30 [facility] Last Admin: 10/12/18 08:31 Dose: 0.4 mg Topiramate (Topamax -) 100 mg PO BID [facility] Last Admin: 10/12/18 11:27 Dose: 100 mg - Objective Vital Signs: Vital Signs Temperature 98.6 F 10/12/18 09:57 Pulse Rate 90 10/12/18 09:57 Respiratory Rate 20 10/12/18 09:57 Blood Pressure 121/74 10/12/18 09:57 O2 Sat by Pulse Oximetry (%) 99 10/11/18 21:00 Constitutional: Yes: Calm, Mild Distress HENT: Yes: Other (port in place) Cardiovascular: Yes: Regular Rate and Rhythm Gastrointestinal: Yes: Soft, Hypoactive Bowel Sounds, Other (nausea,) Musculoskeletal: Yes: WNL Extremities: Yes: WNL Neurological: Yes: Alert, Oriented Psychiatric: Yes: Alert, Oriented Labs: CBC, BMP 10/09/18 07:10 10/10/18 06:00 INR, PTT INR 1.09 (0.83-1.09) 09/30/18 06:20 Assessment/Plan patient with gastric cancer recently diagnosed got a port placement plan gastric cancer fever probably abscess nausea gout estefania prepyloric ulcer plan continue abx might need to aspirate the fluid monitor for fevers close watch hydration
--- NOTE | 2018-10-12 15:34 | PN ---
Physical Exam: SUBJECTIVE: Patient seen and examined OBJECTIVE: Vital Signs Period Temp Pulse Resp BP Sys/Cota Pulse Ox Last 24 Hr 98.4 F-98.6 F 90-96 18-20 103-131/48-77 99 GENERAL: The patient is awake, alert, and fully oriented, in no acute distress. HEAD: Normal with no signs of trauma. EYES: PERRL, extraocular movements intact, sclera anicteric, conjunctiva clear. No ptosis. ENT: Ears normal, nares patent, oropharynx clear without exudates, moist mucous membranes. NECK: Trachea midline, full range of motion, supple. LUNGS: Breath sounds equal, clear to auscultation bilaterally, no wheezes, no crackles, no accessory muscle use. HEART: Regular rate and rhythm, S1, S2 without murmur, rub or gallop. ABDOMEN: Soft, nontender, nondistended, normoactive bowel sounds, no guarding, no rebound, no hepatosplenomegaly, no masses. EXTREMITIES: 2+ pulses, warm, well-perfused, no edema. NEUROLOGICAL: Cranial nerves II through XII grossly intact. Normal speech, gait not observed. PSYCH: Normal mood, normal affect. SKIN: Warm, dry, normal turgor, no rashes or lesions noted Active Medications Generic Name Dose Route Start Last Admin Trade Name Freq PRN Reason Stop Dose Admin Al Hydroxide/Mg Hydroxide 30 ml 10/11/18 12:00 10/12/18 11:27 Mylanta Oral Suspension - PO 30 ml TID@0600,1200,1800 [facility] Administration Allopurinol 100 mg 10/11/18 11:30 10/12/18 11:26 Zyloprim - PO 100 mg DAILY [facility] Administration Amlodipine Besylate 10 mg 10/11/18 11:30 10/12/18 11:25 Norvasc - PO 10 mg DAILY [facility] Administration Atorvastatin Calcium 40 mg 10/11/18 22:00 10/11/18 23:54 Lipitor - PO 40 mg HS [facility] Administration Carbamazepine 400 mg 10/11/18 22:00 10/12/18 11:28 Tegretol Xr - PO 400 mg BID [facility] Administration Chlorpromazine HCl 50 mg 10/11/18 10:19 Thorazine Injection - IM Q6H PRN NAUSEA AND/OR VOMITING Clonidine 0.2 mg 10/11/18 11:30 10/12/18 11:25 Catapres - PO 0.2 mg DAILY [facility] Administration Divalproex Sodium 1,000 mg 10/11/18 22:00 10/12/18 11:27 Depakote - PO 1,000 mg BID [facility] Administration Potassium Chloride/Dextrose/Sod Cl 10 meq in 1,000 mls @ 83 mls/hr 10/11/18 10 :19 10/12/18 11:26 D5-1/2ns+10 Meq Kcl - IV Not Given ASDIR [facility] Piperacillin Sod/Tazobactam 50 mls @ 100 mls/hr 10/11/18 14:30 10/12/18 11:26 Sod 3.375 gm/ Dextrose IVPB 100 mls/hr Q8H-IV [facility] Administration Protocol Lidocaine 1 patch 10/12/18 10:00 10/12/18 11:27 Lidoderm Patch - TP 1 patch DAILY [facility] Administration Losartan Potassium 100 mg 10/11/18 11:45 10/12/18 11:26 Cozaar - PO 100 mg BID [facility] Administration Miscellaneous 1 each 10/11/18 22:00 10/12/18 00:10 Lidoderm Patch Removal MC Not Given DAILY@2200 [facility] Ondansetron HCl 4 mg 10/11/18 10:19 10/12/18 11:25 Zofran Injection IVPUSH 4 mg Q6H PRN Administration NAUSEA AND/OR VOMITING Oxybutynin Chloride 5 mg 10/11/18 11:30 10/12/18 11:25 Ditropan - PO 5 mg BID [facility] Administration Oxycodone HCl 5 mg 10/11/18 10:19 10/12/18 08:31 Roxicodone - PO 5 mg Q4H PRN Administration PAIN LEVEL 4 - 6 Oxycodone HCl 10 mg 10/11/18 22:00 10/12/18 11:25 Oxycontin - PO 10 mg BID [facility] Administration Pantoprazole Sodium 40 mg 10/11/18 22:00 10/12/18 11:26 Protonix Iv IVPUSH 40 mg BID [facility] Administration Tamsulosin HCl 0.4 mg 10/12/18 08:30 10/12/18 08:31 Flomax - PO 0.4 mg DAILY@0830 [facility] Administration Topiramate 100 mg 10/11/18 22:00 02/27/19 11:27 Topamax - PO 100 mg BID [facility] Administration ASSESSMENT/PLAN: This is a 68 year old male with a history of epilepsy, htn, bph who presents with bloating and RLQ pain, found to have a large prepyloric ulcer ; suspect malignancy. Adenocarcinoma of the stomach prepyloric ulcer Gout JERRELL -tissue biopsy +for gastric adeno Ca -po intake as tolerated; IVF -staging CT chest/abd/pelvis -s/p laparoscopic surgery for barbara biopsies, sub diaphragmatic and peritoneal biopsies. -with persistent abdominal distention ; CT abdomen showing ill defined fluid collection within body of stomach ; ad per IR it is a phlegman that may develop into an abscess ; with illeus -cont broad spectrum IV antibiotics -chemo port placed; chemo radiation to be started after acute infectious process resolves; Visit type - Emergency Visit Emergency Visit: Yes ED Registration Date: 09/28/18 Care time: The patient presented to the Emergency Department on the above date and was hospitalized for further evaluation of their emergent condition. - New Patient This patient is new to me today: No - Critical Care Critical Care patient: No
--- NOTE | 2018-10-12 19:30 | PN ---
Teaching Attending Note Name of Resident: Bekah Abarca ATTENDING PHYSICIAN STATEMENT I saw and evaluated the patient. I reviewed the resident's note and discussed the case with the resident. I agree with the resident's findings and plan as documented. SUBJECTIVE: Patient seen and examined Nausea and emesis with burning from reflux in mid chest area CT reviewed with pneumonia RLL and ileus with phlegmon in region of stomach Last Vital Signs Temp Pulse Resp BP Pulse Ox 98.3 F 93 H 18 129/72 99 10/12/18 18:30 10/12/18 18:30 10/12/18 18:30 10/12/18 18:30 10/11/18 21:00 HEENT: AVILA, EOM Intact Cor: RSR, No murmurs, No gallops Lungs: poor inspiratory effort decreased breath sounds R>L lower lobe Abd distened ed tympanitic tender Skin: No rashes, Integument intact CBC, BMP 10/09/18 07:10 10/10/18 06:00 Current Medications Generic Name Dose Route Start Last Admin Trade Name Freq PRN Reason Stop Dose Admin Al Hydroxide/Mg Hydroxide 30 ml 10/11/18 12:00 10/12/18 17:40 Mylanta Oral Suspension - PO 30 ml TID@0600,1200,1800 [facility] Administration Allopurinol 100 mg 10/11/18 11:30 10/12/18 11:26 Zyloprim - PO 100 mg DAILY [facility] Administration Amlodipine Besylate 10 mg 10/11/18 11:30 10/12/18 11:25 Norvasc - PO 10 mg DAILY [facility] Administration Atorvastatin Calcium 40 mg 10/11/18 22:00 10/11/18 23:54 Lipitor - PO 40 mg HS [facility] Administration Carbamazepine 400 mg 10/11/18 22:00 10/12/18 11:28 Tegretol Xr - PO 400 mg BID [facility] Administration Chlorpromazine HCl 50 mg 10/11/18 10:19 Thorazine Injection - IM Q6H PRN NAUSEA AND/OR VOMITING Clonidine 0.2 mg 10/11/18 11:30 10/12/18 11:25 Catapres - PO 0.2 mg DAILY [facility] Administration Divalproex Sodium 1,000 mg 10/11/18 22:00 10/12/18 11:27 Depakote - PO 1,000 mg BID [facility] Administration Potassium Chloride/Dextrose/Sod Cl 10 meq in 1,000 mls @ 83 mls/hr 10/11/18 10 :19 10/12/18 17:40 D5-1/2ns+10 Meq Kcl - IV 83 mls/hr ASDIR [facility] Administration Piperacillin Sod/Tazobactam 50 mls @ 100 mls/hr 10/11/18 14:30 10/12/18 17:39 Sod 3.375 gm/ Dextrose IVPB 100 mls/hr Q8H-IV [facility] Administration Protocol Lidocaine 1 patch 10/12/18 10:00 10/12/18 11:27 Lidoderm Patch - TP 1 patch DAILY [facility] Administration Losartan Potassium 100 mg 10/11/18 11:45 10/12/18 11:26 Cozaar - PO 100 mg BID [facility] Administration Miscellaneous 1 each 10/11/18 22:00 10/12/18 00:10 Lidoderm Patch Removal MC Not Given DAILY@2200 [facility] Ondansetron HCl 4 mg 10/11/18 10:19 10/12/18 11:25 Zofran Injection IVPUSH 4 mg Q6H PRN Administration NAUSEA AND/OR VOMITING Oxybutynin Chloride 5 mg 10/11/18 11:30 10/12/18 11:25 Ditropan - PO 5 mg BID [facility] Administration Oxycodone HCl 5 mg 10/11/18 10:19 10/12/18 08:31 Roxicodone - PO 5 mg Q4H PRN Administration PAIN LEVEL 4 - 6 Oxycodone HCl 10 mg 10/11/18 22:00 10/12/18 11:25 Oxycontin - PO 10 mg BID [facility] Administration Pantoprazole Sodium 40 mg 10/11/18 22:00 10/12/18 11:26 Protonix Iv IVPUSH 40 mg BID [facility] Administration Tamsulosin HCl 0.4 mg 10/12/18 08:30 10/12/18 08:31 Flomax - PO 0.4 mg DAILY@0830 [facility] Administration Topiramate 100 mg 10/11/18 22:00 10/12/18 11:27 Topamax - PO 100 mg BID [facility] Administration OBJECTIVE:Impression: Gastric ca S/P laparoscopic surgery Ileus Nause and emesis Reflux RLL pneumonia PHLEGMON Plan : Ng tube drainage Antibiotics Surgical and GI follow up ASSESSMENT AND PLAN:
[2018-10-12] MEDS: ATORVASTATIN CA 40 MG TABLET (FP) PO SCH (22:26)
[2018-10-13] MEDS ORDERED: DEXTROSE 5%-WATER - 50 ML IVPB ONE ×3 (02:59→17:45)
[2018-10-13] MEDS ORDERED: PIPERACILLIN/TAZOBACTAM 3.375 GM VIAL IVPB ONE ×3 (02:59→17:44)
[2018-10-13] MEDS: PIPERACILLIN/TAZOB 3.375 GM 3.375 GM in DEXTROSE 5%-WATER - 50 ML IVPB SCH ×3 (03:00→17:51)
[2018-10-13] MEDS: MAG HYDROX/AL HYDROX/SIMETH 30 ML UNIT-DOSE CUP PO SCH ×3 (06:15→17:50)
--- NOTE | 2018-10-13 09:32 | PN ---
Progress Note, Physician Chief Complaint: Discomfort from NG tube History of Present Illness: [facility] - Current Medication List Current Medications: Active Medications Al Hydroxide/Mg Hydroxide (Mylanta Oral Suspension -) 30 ml PO TID@0600,1200, 1800 [facility] Last Admin: 10/13/18 06:15 Dose: 30 ml Allopurinol (Zyloprim -) 100 mg PO DAILY [facility] Last Admin: 10/12/18 11:26 Dose: 100 mg Amlodipine Besylate (Norvasc -) 10 mg PO DAILY [facility] Last Admin: 10/12/18 11:25 Dose: 10 mg Atorvastatin Calcium (Lipitor -) 40 mg PO HS [facility] Last Admin: 10/12/18 22:26 Dose: 40 mg Carbamazepine (Tegretol Xr -) 400 mg PO BID [facility] Last Admin: 10/12/18 22:29 Dose: 400 mg Chlorpromazine HCl (Thorazine Injection -) 50 mg IM Q6H PRN PRN Reason: NAUSEA AND/OR VOMITING Clonidine (Catapres -) 0.2 mg PO DAILY [facility] Last Admin: 10/12/18 11:25 Dose: 0.2 mg Divalproex Sodium (Depakote -) 1,000 mg PO BID [facility] Last Admin: 10/12/18 22:28 Dose: 1,000 mg Potassium Chloride/Dextrose/Sod Cl (D5-1/2ns+10 Meq Kcl -) 10 meq in 1,000 mls @ 83 mls/hr IV ASDIR [facility] Last Admin: 10/12/18 17:40 Dose: 83 mls/hr Piperacillin Sod/Tazobactam (Sod 3.375 gm/ Dextrose) 50 mls @ 100 mls/hr IVPB Q8H-IV [facility]; Protocol Last Admin: 10/13/18 03:00 Dose: 100 mls/hr Lidocaine (Lidoderm Patch -) 1 patch TP DAILY [facility] Last Admin: 10/12/18 11:27 Dose: 1 patch Losartan Potassium (Cozaar -) 100 mg PO BID [facility] Last Admin: 10/12/18 22:27 Dose: 100 mg Miscellaneous (Lidoderm Patch Removal) 1 each MC DAILY@2200 [facility] Last Admin: 10/12/18 22:51 Dose: Not Given Ondansetron HCl (Zofran Injection) 4 mg IVPUSH Q6H PRN PRN Reason: NAUSEA AND/OR VOMITING Last Admin: 10/12/18 23:26 Dose: 4 mg Oxybutynin Chloride (Ditropan -) 5 mg PO BID [facility] Last Admin: 10/12/18 22:28 Dose: 5 mg Oxycodone HCl (Roxicodone -) 5 mg PO Q4H PRN PRN Reason: PAIN LEVEL 4 - 6 Last Admin: 10/12/18 08:31 Dose: 5 mg Oxycodone HCl (Oxycontin -) 10 mg PO BID [facility] Last Admin: 10/12/18 22:46 Dose: 10 mg Pantoprazole Sodium (Protonix Iv) 40 mg IVPUSH BID [facility] Last Admin: 10/12/18 22:29 Dose: 40 mg Tamsulosin HCl (Flomax -) 0.4 mg PO DAILY@30 [facility] Last Admin: 10/12/18 08:31 Dose: 0.4 mg Topiramate (Topamax -) 100 mg PO BID [facility] Last Admin: 10/12/18 22:47 Dose: 100 mg - Objective Vital Signs: Vital Signs Temperature 98.1 F 10/13/18 06:00 Pulse Rate 94 H 10/13/18 06:00 Respiratory Rate 18 10/13/18 06:00 Blood Pressure 134/71 10/13/18 06:00 O2 Sat by Pulse Oximetry (%) 99 10/12/18 21:00 Constitutional: Yes: Mild Distress Eyes: Yes: WNL HENT: Yes: WNL Neck: Yes: WNL Cardiovascular: Yes: WNL Respiratory: Yes: WNL Gastrointestinal: Yes: Other (distended, no BS) ...Rectal Exam: Yes: Deferred Genitourinary: Yes: WNL Breast(s): Yes: WNL Labs: CBC, BMP 10/09/18 07:10 10/10/18 06:00 INR, PTT INR 1.09 (0.83-1.09) 09/30/18 06:20 Assessment/Plan Start clinimix Depacort IV Tegratol liquid
--- NOTE | 2018-10-13 09:51 | PN ---
Progress Note, Physician History of Present Illness: patient distended vomiting ng tube had to be placed draining a lot - Current Medication List Current Medications: Active Medications Al Hydroxide/Mg Hydroxide (Mylanta Oral Suspension -) 30 ml PO TID@0600,1200, 1800 [facility] Last Admin: 10/13/18 06:15 Dose: 30 ml Allopurinol (Zyloprim -) 100 mg PO DAILY [facility] Last Admin: 10/12/18 11:26 Dose: 100 mg Amlodipine Besylate (Norvasc -) 10 mg PO DAILY [facility] Last Admin: 10/12/18 11:25 Dose: 10 mg Atorvastatin Calcium (Lipitor -) 40 mg PO HS [facility] Last Admin: 10/12/18 22:26 Dose: 40 mg Carbamazepine (Tegretol Oral Suspension -) 200 mg PO Q6HPO [facility] Chlorpromazine HCl (Thorazine Injection -) 50 mg IM Q6H PRN PRN Reason: NAUSEA AND/OR VOMITING Clonidine (Catapres -) 0.2 mg PO DAILY [facility] Last Admin: 10/12/18 11:25 Dose: 0.2 mg Potassium Chloride/Dextrose/Sod Cl (D5-1/2ns+10 Meq Kcl -) 10 meq in 1,000 mls @ 83 mls/hr IV ASDIR [facility] Last Admin: 10/12/18 17:40 Dose: 83 mls/hr Piperacillin Sod/Tazobactam (Sod 3.375 gm/ Dextrose) 50 mls @ 100 mls/hr IVPB Q8H-IV [facility]; Protocol Last Admin: 10/13/18 03:00 Dose: 100 mls/hr Amino Acids (Clinimix -) 1,000 mls @ 0 mls/hr IV Q12H [facility] Lidocaine (Lidoderm Patch -) 1 patch TP DAILY [facility] Last Admin: 10/12/18 11:27 Dose: 1 patch Losartan Potassium (Cozaar -) 100 mg PO BID [facility] Last Admin: 10/12/18 22:27 Dose: 100 mg Miscellaneous (Lidoderm Patch Removal) 1 each MC DAILY@2200 [facility] Last Admin: 10/12/18 22:51 Dose: Not Given Ondansetron HCl (Zofran Injection) 4 mg IVPUSH Q6H PRN PRN Reason: NAUSEA AND/OR VOMITING Last Admin: 10/12/18 23:26 Dose: 4 mg Oxybutynin Chloride (Ditropan -) 5 mg PO BID [facility] Last Admin: 10/12/18 22:28 Dose: 5 mg Oxycodone HCl (Roxicodone -) 5 mg PO Q4H PRN PRN Reason: PAIN LEVEL 4 - 6 Last Admin: 10/12/18 08:31 Dose: 5 mg Oxycodone HCl (Oxycontin -) 10 mg PO BID [facility] Last Admin: 10/12/18 22:46 Dose: 10 mg Pantoprazole Sodium (Protonix Iv) 40 mg IVPUSH BID [facility] Last Admin: 10/12/18 22:29 Dose: 40 mg Tamsulosin HCl (Flomax -) 0.4 mg PO DAILY@0830 [facility] Last Admin: 10/12/18 08:31 Dose: 0.4 mg Topiramate (Topamax -) 100 mg PO BID [facility] Last Admin: 10/12/18 22:47 Dose: 100 mg Valproate Sodium (Depacon Injection -) 1,000 mg IVPB BID [facility] - Objective Vital Signs: Vital Signs Temperature 98.1 F 10/13/18 06:00 Pulse Rate 94 H 10/13/18 06:00 Respiratory Rate 18 10/13/18 06:00 Blood Pressure 134/71 10/13/18 06:00 O2 Sat by Pulse Oximetry (%) 99 10/12/18 21:00 Constitutional: Yes: No Distress, Calm Cardiovascular: Yes: Regular Rate and Rhythm Respiratory: Yes: Regular, CTA Bilaterally Gastrointestinal: Yes: Distention, Other (absent bowel sounds) Musculoskeletal: Yes: WNL Extremities: Yes: WNL Neurological: Yes: Alert, Oriented Psychiatric: Yes: Alert, Oriented Labs: CBC, BMP 10/09/18 07:10 10/10/18 06:00 INR, PTT INR 1.09 (0.83-1.09) 09/30/18 06:20 Assessment/Plan patient with gastric cancer recently diagnosed got a port placement plan gastric cancer fever probably abscess nausea gout estefania prepyloric ulcer plan continue abx will d/w surgery ng suction monitor for fevers close watch hydration
--- NOTE | 2018-10-13 10:23 | PN ---
Progress Note, Physician - Current Medication List Current Medications: Active Medications Al Hydroxide/Mg Hydroxide (Mylanta Oral Suspension -) 30 ml PO TID@0600,1200, 1800 [facility] Last Admin: 10/13/18 06:15 Dose: 30 ml Allopurinol (Zyloprim -) 100 mg PO DAILY [facility] Last Admin: 10/12/18 11:26 Dose: 100 mg Amlodipine Besylate (Norvasc -) 10 mg PO DAILY [facility] Last Admin: 10/12/18 11:25 Dose: 10 mg Atorvastatin Calcium (Lipitor -) 40 mg PO HS [facility] Last Admin: 10/12/18 22:26 Dose: 40 mg Carbamazepine (Tegretol Oral Suspension -) 200 mg PO Q6HPO [facility] Chlorpromazine HCl (Thorazine Injection -) 50 mg IM Q6H PRN PRN Reason: NAUSEA AND/OR VOMITING Clonidine (Catapres -) 0.2 mg PO DAILY [facility] Last Admin: 10/12/18 11:25 Dose: 0.2 mg Potassium Chloride/Dextrose/Sod Cl (D5-1/2ns+10 Meq Kcl -) 10 meq in 1,000 mls @ 83 mls/hr IV ASDIR [facility] Last Admin: 10/12/18 17:40 Dose: 83 mls/hr Piperacillin Sod/Tazobactam (Sod 3.375 gm/ Dextrose) 50 mls @ 100 mls/hr IVPB Q8H-IV [facility]; Protocol Last Admin: 10/13/18 03:00 Dose: 100 mls/hr Potassium Chloride 20 meq/ (Amino Acids) 1,010 mls @ 100 mls/hr IVPB Q10H [facility] Lidocaine (Lidoderm Patch -) 1 patch TP DAILY [facility] Last Admin: 10/12/18 11:27 Dose: 1 patch Losartan Potassium (Cozaar -) 100 mg PO BID [facility] Last Admin: 10/12/18 22:27 Dose: 100 mg Miscellaneous (Lidoderm Patch Removal) 1 each MC DAILY@2200 [facility] Last Admin: 10/12/18 22:51 Dose: Not Given Ondansetron HCl (Zofran Injection) 4 mg IVPUSH Q6H PRN PRN Reason: NAUSEA AND/OR VOMITING Last Admin: 10/12/18 23:26 Dose: 4 mg Oxybutynin Chloride (Ditropan -) 5 mg PO BID [facility] Last Admin: 10/12/18 22:28 Dose: 5 mg Oxycodone HCl (Roxicodone -) 5 mg PO Q4H PRN PRN Reason: PAIN LEVEL 4 - 6 Last Admin: 10/12/18 08:31 Dose: 5 mg Oxycodone HCl (Oxycontin -) 10 mg PO BID [facility] Last Admin: 10/12/18 22:46 Dose: 10 mg Pantoprazole Sodium (Protonix Iv) 40 mg IVPUSH BID [facility] Last Admin: 10/12/18 22:29 Dose: 40 mg Tamsulosin HCl (Flomax -) 0.4 mg PO DAILY@0830 [facility] Last Admin: 10/12/18 08:31 Dose: 0.4 mg Topiramate (Topamax -) 100 mg PO BID [facility] Last Admin: 10/12/18 22:47 Dose: 100 mg Valproate Sodium (Depacon Injection -) 1,000 mg IVPB BID [facility] - Objective Vital Signs: Vital Signs Temperature 100.7 F H 10/13/18 10:00 Pulse Rate 100 H 10/13/18 10:00 Respiratory Rate 18 10/13/18 10:00 Blood Pressure 138/84 10/13/18 10:00 O2 Sat by Pulse Oximetry (%) 99 10/12/18 21:00 Labs: CBC, BMP 10/09/18 07:10 10/10/18 06:00 INR, PTT INR 1.09 (0.83-1.09) 09/30/18 06:20 Problem List - Problems (1) Abdominal pain Code(s): R10.9 - UNSPECIFIED ABDOMINAL PAIN Qualifiers: Abdominal location: right upper quadrant Qualified Code(s): R10.11 - Right upper quadrant pain (2) Gastric ulcer Code(s): K25.9 - GASTRIC ULCER, UNSP ACUTE OR CHRONIC, W/O HEMOR OR PERF Qualifiers: Gastric ulcer complication status: without hemorrhage or perforation (3) Essential (primary) hypertension Code(s): I10 - ESSENTIAL (PRIMARY) HYPERTENSION (4) Seizure disorder Code(s): G40.909 - EPILEPSY, UNSP, NOT INTRACTABLE, WITHOUT STATUS EPILEPTICUS Assessment/Plan Surgery: Patient remains with distended abdomen . Patient sates that he is passing flatus. Abdomen is soft in the lower abdomen. NG tube placed , draining brownish gastric contents, about 300ml. Abdominal X-ray : poor visualisation. Will repeat abdominal X=ray. CT scan showed diffuse dilataion of small and large bowel. Patient and his were informed that if he remains obstructed may consider gastrojejunostomy. Will start PPN.
[2018-10-13] MEDS ORDERED: ACETAMINOPHEN 1000 MG/100 ML VIAL (NON FORMULARY) IVPB ONE (10:45)
[2018-10-13] MEDS: cloNIDine HCL 0.1 MG TABLET PO SCH (12:35)
[2018-10-13] MEDS: TAMSULOSIN HCL 0.4 MG CAP PO SCH (12:35)
[2018-10-13] MEDS: oxyCODONE HCL 10 MG SUSTAINED ACTING TABLET PO SCH ×2 (12:36→23:30)
[2018-10-13] MEDS: OXYBUTYNIN CHLORIDE 5 MG TABLET PO SCH ×2 (12:36→23:30)
[2018-10-13] MEDS: ALLOPURINOL 100 MG TABLET (FP) PO SCH (12:36)
[2018-10-13] MEDS: amLODIPine BESYLATE 10 MG TABLET (FP) PO SCH (12:37)
[2018-10-13] MEDS: LOSARTAN POTASSIUM 50 MG TABLET (FP) PO SCH ×2 (12:38→23:30)
[2018-10-13] MEDS: LIDOCAINE 5% TOPICAL PATCH TP SCH (12:39)
[2018-10-13] MEDS: PANTOPRAZOLE SODIUM 40 MG VIAL IVPUSH SCH ×2 (12:39→23:30)
[2018-10-13] MEDS: POTASSIUM CHLORIDE 20 MEQ in AMINO ACIDS 4.25%/D5W 1,000 ML IVPB SCH ×2 (12:39→18:53)
[2018-10-13] MEDS: TOPIRAMATE 100 MG TABLET PO SCH (12:40)
[2018-10-13] MEDS ORDERED: PT OWN MED DRAWER 7, Y5N ONE ×3 (12:44→17:59)
[2018-10-13] MEDS: VALPROATE SODIUM 500 MG/5 ML VIAL IVPB SCH ×2 (12:52→23:30)
[2018-10-13] MEDS: carBAMazepine 200 MG/10 ML UNIT-DOSE CUP PO SCH ×2 (12:57→17:51)
[2018-10-13] MEDS: D5-1/2NS+10 MEQ KCL - 10 MEQ/1,000 ML INFUS.BAG IV SCH (12:58)
--- NOTE | 2018-10-13 13:03 | PN ---
Physical Exam: SUBJECTIVE: Patient seen and examined NG tube placed yesterday; putting out 1500ml as per nurse; patient states that he feels better. less nausea; although still has not passed flatus or BM in 2-3 days OBJECTIVE: Vital Signs Period Temp Pulse Resp BP Sys/Cota Pulse Ox Last 24 Hr 98.1 F-100.7 F 93-100 18-18 129-138/71-84 99 GENERAL: The patient is awake, alert, and fully oriented with NGT in place LUNGS: Breath sounds equal, clear to auscultation bilaterally, no wheezes, no crackles, no accessory muscle use. HEART: Regular rate and rhythm, S1, S2 without murmur, rub or gallop. ABDOMEN: tight; distended; non tender; no BS rebound, no hepatosplenomegaly, no masses. EXTREMITIES: 2+ pulses, warm, well-perfused, no edema. Active Medications Generic Name Dose Route Start Last Admin Trade Name Freq PRN Reason Stop Dose Admin Al Hydroxide/Mg Hydroxide 30 ml 10/11/18 12:00 10/13/18 12:57 Mylanta Oral Suspension - PO 30 ml TID@0600,1200,1800 [facility] Administration Allopurinol 100 mg 10/11/18 11:30 10/13/18 12:36 Zyloprim - PO 100 mg DAILY [facility] Administration Amlodipine Besylate 10 mg 10/11/18 11:30 10/13/18 12:37 Norvasc - PO 10 mg DAILY [facility] Administration Atorvastatin Calcium 40 mg 10/11/18 22:00 10/12/18 22:26 Lipitor - PO 40 mg HS [facility] Administration Carbamazepine 200 mg 10/13/18 12:00 10/13/18 12:57 Tegretol Oral Suspension - PO 200 mg Q6HPO [facility] Administration Chlorpromazine HCl 50 mg 10/11/18 10:19 Thorazine Injection - IM Q6H PRN NAUSEA AND/OR VOMITING Clonidine 0.2 mg 10/11/18 11:30 10/13/18 12:35 Catapres - PO 0.2 mg DAILY [facility] Administration Piperacillin Sod/Tazobactam 50 mls @ 100 mls/hr 10/11/18 14:30 10/13/18 12:37 Sod 3.375 gm/ Dextrose IVPB 100 mls/hr Q8H-IV [facility] Administration Protocol Potassium Chloride 20 meq/ 1,010 mls @ 100 mls/hr 10/13/18 09:45 10/13/18 12: 39 Amino Acids IVPB 100 mls/hr Q10H [facility] Administration Lidocaine 1 patch 10/12/18 10:00 10/13/18 12:39 Lidoderm Patch - TP Not Given DAILY [facility] Losartan Potassium 100 mg 10/11/18 11:45 10/13/18 12:38 Cozaar - PO 100 mg BID [facility] Administration Miscellaneous 1 each 10/11/18 22:00 10/12/18 22:51 Lidoderm Patch Removal MC Not Given DAILY@2200 [facility] Ondansetron HCl 4 mg 10/11/18 10:19 10/12/18 23:26 Zofran Injection IVPUSH 4 mg Q6H PRN Administration NAUSEA AND/OR VOMITING Oxybutynin Chloride 5 mg 10/11/18 11:30 10/13/18 12:36 Ditropan - PO 5 mg BID [facility] Administration Oxycodone HCl 5 mg 10/11/18 10:19 10/12/18 08:31 Roxicodone - PO 5 mg Q4H PRN Administration PAIN LEVEL 4 - 6 Oxycodone HCl 10 mg 10/11/18 22:00 10/13/18 12:36 Oxycontin - PO Not Given BID [facility] Pantoprazole Sodium 40 mg 10/11/18 22:00 10/13/18 12:39 Protonix Iv IVPUSH 40 mg BID [facility] Administration Tamsulosin HCl 0.4 mg 10/12/18 08:30 10/13/18 12:35 Flomax - PO 0.4 mg DAILY@0830 [facility] Administration Topiramate 100 mg 10/11/18 22:00 10/13/18 12:40 Topamax - PO 100 mg BID [facility] Administration Valproate Sodium 1,000 mg 10/13/18 10:00 10/13/18 12:52 Depacon Injection - IVPB 1,000 mg BID [facility] Administration ASSESSMENT/PLAN: This is a 68 year old male with a history of epilepsy, htn, bph who presents with bloating and RLQ pain, found to have a large prepyloric ulcer ; suspect malignancy. Adenocarcinoma of the stomach prepyloric ulcer Gout JERRELL Illeus Phlegman -tissue biopsy +for gastric adeno Ca --ngt; sx to start TPN -brabara biopsies, sub diaphragmatic and peritoneal biopsies pending -with persistent abdominal distention ; CT abdomen showing ill defined fluid collection within body of stomach ; ad per IR it is a phlegman that may develop into an abscess ; with illeus -cont NGT; f/u abdominal xray; as per srgert may need gastrojejunostomy. -cont broad spectrum IV antibiotics -chemo port placed; chemo radiation to be started after acute infectious process resolves; Visit type - Emergency Visit Emergency Visit: Yes ED Registration Date: 09/28/18 Care time: The patient presented to the Emergency Department on the above date and was hospitalized for further evaluation of their emergent condition. - New Patient This patient is new to me today: No - Critical Care Critical Care patient: No
--- NOTE | 2018-10-13 23:05 | PN ---
Teaching Attending Note Name of Resident: Bekah Abarca ATTENDING PHYSICIAN STATEMENT I saw and evaluated the patient. I reviewed the resident's note and discussed the case with the resident. I agree with the resident's findings and plan as documented. ASSESSMENT AND PLAN: 68 y/o patient with Gastric ca S/P laparoscopic surgery Ileus Nausea and emesis Reflux RLL pneumonia PHLEGMON altered mental status --? pain meds/toxic/metabolic Plan : Ng tube drainage Antibiotics Surgical and GI follow up
[2018-10-13] MEDS: ATORVASTATIN CA 40 MG TABLET (FP) PO SCH (23:30)
[2018-10-14] MEDS: TOPIRAMATE 100 MG TABLET PO SCH ×3 (00:01→23:47)
[2018-10-14] MEDS: LIDOCAINE PATCH REMOVAL MC SCH ×2 (00:21→23:14)
[2018-10-14] MEDS: carBAMazepine 200 MG/10 ML UNIT-DOSE CUP PO SCH ×6 (00:48→23:48)
[2018-10-14] MEDS ORDERED: DEXTROSE 5%-WATER - 50 ML IVPB ONE ×3 (01:21→17:24)
[2018-10-14] MEDS ORDERED: PIPERACILLIN/TAZOBACTAM 3.375 GM VIAL IVPB ONE ×3 (01:21→17:24)
[2018-10-14] MEDS: PIPERACILLIN/TAZOB 3.375 GM 3.375 GM in DEXTROSE 5%-WATER - 50 ML IVPB SCH ×3 (01:25→17:44)
[2018-10-14] MEDS: MAG HYDROX/AL HYDROX/SIMETH 30 ML UNIT-DOSE CUP PO SCH ×3 (05:28→17:44)
[2018-10-14] MEDS: POTASSIUM CHLORIDE 20 MEQ in AMINO ACIDS 4.25%/D5W 1,000 ML IVPB SCH ×2 (05:37→15:55)
[2018-10-14] MEDS: oxyCODONE HCL 5 MG TABLET PO PRN (06:54)
[2018-10-14] MEDS ORDERED: PT OWN MED DRAWER 7, Y5N ONE ×5 (09:03→23:09)
[2018-10-14] MEDS: OXYBUTYNIN CHLORIDE 5 MG TABLET PO SCH ×3 (09:13→23:41)
[2018-10-14] MEDS: ALLOPURINOL 100 MG TABLET (FP) PO SCH (09:13)
[2018-10-14] MEDS: cloNIDine HCL 0.1 MG TABLET PO SCH (09:13)
[2018-10-14] MEDS: TAMSULOSIN HCL 0.4 MG CAP PO SCH (09:13)
[2018-10-14] MEDS: LOSARTAN POTASSIUM 50 MG TABLET (FP) PO SCH ×3 (09:13→23:41)
[2018-10-14] MEDS: oxyCODONE HCL 10 MG SUSTAINED ACTING TABLET PO SCH ×3 (09:14→23:43)
[2018-10-14] MEDS: PANTOPRAZOLE SODIUM 40 MG VIAL IVPUSH SCH ×2 (09:14→23:12)
[2018-10-14] MEDS: amLODIPine BESYLATE 10 MG TABLET (FP) PO SCH (09:14)
--- NOTE | 2018-10-14 10:00 | PN ---
Progress Note, Physician - Current Medication List Current Medications: Active Medications Al Hydroxide/Mg Hydroxide (Mylanta Oral Suspension -) 30 ml PO TID@0600,1200, 1800 [facility] Last Admin: 10/14/18 05:28 Dose: 30 ml Allopurinol (Zyloprim -) 100 mg PO DAILY [facility] Last Admin: 10/14/18 09:13 Dose: 100 mg Amlodipine Besylate (Norvasc -) 10 mg PO DAILY [facility] Last Admin: 10/14/18 09:14 Dose: 10 mg Atorvastatin Calcium (Lipitor -) 40 mg PO HS [facility] Last Admin: 10/13/18 23:30 Dose: 40 mg Carbamazepine (Tegretol Oral Suspension -) 200 mg PO Q6HPO [facility] Last Admin: 10/14/18 05:29 Dose: 200 mg Chlorpromazine HCl (Thorazine Injection -) 50 mg IM Q6H PRN PRN Reason: NAUSEA AND/OR VOMITING Clonidine (Catapres -) 0.2 mg PO DAILY [facility] Last Admin: 10/14/18 09:13 Dose: 0.2 mg Piperacillin Sod/Tazobactam (Sod 3.375 gm/ Dextrose) 50 mls @ 100 mls/hr IVPB Q8H-IV [facility]; Protocol Last Admin: 10/14/18 09:15 Dose: 100 mls/hr Potassium Chloride 20 meq/ (Amino Acids) 1,010 mls @ 100 mls/hr IVPB Q10H [facility] Last Admin: 10/14/18 05:37 Dose: 100 mls/hr Lidocaine (Lidoderm Patch -) 1 patch TP DAILY [facility] Last Admin: 10/13/18 12:39 Dose: Not Given Losartan Potassium (Cozaar -) 100 mg PO BID [facility] Last Admin: 10/14/18 09:13 Dose: 100 mg Miscellaneous (Lidoderm Patch Removal) 1 each MC DAILY@2200 [facility] Last Admin: 10/14/18 00:21 Dose: Not Given Ondansetron HCl (Zofran Injection) 4 mg IVPUSH Q6H PRN PRN Reason: NAUSEA AND/OR VOMITING Last Admin: 10/12/18 23:26 Dose: 4 mg Oxybutynin Chloride (Ditropan -) 5 mg PO BID [facility] Last Admin: 10/14/18 09:13 Dose: 5 mg Oxycodone HCl (Roxicodone -) 5 mg PO Q4H PRN PRN Reason: PAIN LEVEL 4 - 6 Last Admin: 10/14/18 06:54 Dose: 5 mg Oxycodone HCl (Oxycontin -) 10 mg PO BID [facility] Last Admin: 10/14/18 09:14 Dose: 10 mg Pantoprazole Sodium (Protonix Iv) 40 mg IVPUSH BID [facility] Last Admin: 10/14/18 09:14 Dose: 40 mg Tamsulosin HCl (Flomax -) 0.4 mg PO DAILY@0830 [facility] Last Admin: 10/14/18 09:13 Dose: 0.4 mg Topiramate (Topamax -) 100 mg PO BID [facility] Last Admin: 10/14/18 00:01 Dose: 100 mg Valproate Sodium (Depacon Injection -) 1,000 mg IVPB BID [facility] Last Admin: 10/13/18 23:30 Dose: 1,000 mg - Objective Vital Signs: Vital Signs Temperature 98.1 F 10/14/18 06:00 Pulse Rate 91 H 10/14/18 06:00 Respiratory Rate 18 10/14/18 06:00 Blood Pressure 160/84 10/14/18 06:00 O2 Sat by Pulse Oximetry (%) 96 10/13/18 21:00 Labs: CBC, BMP 10/09/18 07:10 10/10/18 06:00 INR, PTT INR 1.09 (0.83-1.09) 09/30/18 06:20 Assessment/Plan continue same trt
[2018-10-14] MEDS: VALPROATE SODIUM 500 MG/5 ML VIAL IVPB SCH ×2 (10:16→23:13)
[2018-10-14] MEDS: LIDOCAINE 5% TOPICAL PATCH TP SCH (10:25)
--- NOTE | 2018-10-14 14:00 | PN ---
Progress Note, Physician - Current Medication List Current Medications: Active Medications Al Hydroxide/Mg Hydroxide (Mylanta Oral Suspension -) 30 ml PO TID@0600,1200, 1800 [facility] Last Admin: 10/14/18 12:23 Dose: 30 ml Allopurinol (Zyloprim -) 100 mg PO DAILY [facility] Last Admin: 10/14/18 09:13 Dose: 100 mg Amlodipine Besylate (Norvasc -) 10 mg PO DAILY [facility] Last Admin: 10/14/18 09:14 Dose: 10 mg Atorvastatin Calcium (Lipitor -) 40 mg PO HS [facility] Last Admin: 10/13/18 23:30 Dose: 40 mg Carbamazepine (Tegretol Oral Suspension -) 200 mg PO Q6HPO [facility] Last Admin: 10/14/18 12:24 Dose: 200 mg Chlorpromazine HCl (Thorazine Injection -) 50 mg IM Q6H PRN PRN Reason: NAUSEA AND/OR VOMITING Clonidine (Catapres -) 0.2 mg PO DAILY [facility] Last Admin: 10/14/18 09:13 Dose: 0.2 mg Piperacillin Sod/Tazobactam (Sod 3.375 gm/ Dextrose) 50 mls @ 100 mls/hr IVPB Q8H-IV [facility]; Protocol Last Admin: 10/14/18 09:15 Dose: 100 mls/hr Potassium Chloride 20 meq/ (Amino Acids) 1,010 mls @ 100 mls/hr IVPB Q10H [facility] Last Admin: 10/14/18 05:37 Dose: 100 mls/hr Lidocaine (Lidoderm Patch -) 1 patch TP DAILY [facility] Last Admin: 10/14/18 10:25 Dose: 1 patch Losartan Potassium (Cozaar -) 100 mg PO BID [facility] Last Admin: 10/14/18 09:13 Dose: 100 mg Miscellaneous (Lidoderm Patch Removal) 1 each MC DAILY@2200 [facility] Last Admin: 10/14/18 00:21 Dose: Not Given Ondansetron HCl (Zofran Injection) 4 mg IVPUSH Q6H PRN PRN Reason: NAUSEA AND/OR VOMITING Last Admin: 10/12/18 23:26 Dose: 4 mg Oxybutynin Chloride (Ditropan -) 5 mg PO BID [facility] Last Admin: 10/14/18 09:13 Dose: 5 mg Oxycodone HCl (Oxycontin -) 10 mg PO BID [facility] Last Admin: 10/14/18 09:14 Dose: 10 mg Pantoprazole Sodium (Protonix Iv) 40 mg IVPUSH BID [facility] Last Admin: 10/14/18 09:14 Dose: 40 mg Tamsulosin HCl (Flomax -) 0.4 mg PO DAILY@0830 [facility] Last Admin: 10/14/18 09:13 Dose: 0.4 mg Topiramate (Topamax -) 100 mg PO BID [facility] Last Admin: 10/14/18 10:55 Dose: 100 mg Valproate Sodium (Depacon Injection -) 1,000 mg IVPB BID [facility] Last Admin: 10/14/18 10:16 Dose: 1,000 mg - Objective Vital Signs: Vital Signs Temperature 98.5 F 10/14/18 10:00 Pulse Rate 93 H 10/14/18 10:00 Respiratory Rate 18 10/14/18 10:00 Blood Pressure 143/83 10/14/18 10:00 O2 Sat by Pulse Oximetry (%) 95 10/14/18 09:00 Labs: CBC, BMP 10/09/18 07:10 10/10/18 06:00 INR, PTT INR 1.09 (0.83-1.09) 09/30/18 06:20
--- NOTE | 2018-10-14 16:44 | PN ---
Progress Note, Physician - Current Medication List Current Medications: Active Medications Al Hydroxide/Mg Hydroxide (Mylanta Oral Suspension -) 30 ml PO TID@0600,1200, 1800 [facility] Last Admin: 10/14/18 12:23 Dose: 30 ml Allopurinol (Zyloprim -) 100 mg PO DAILY [facility] Last Admin: 10/14/18 09:13 Dose: 100 mg Amlodipine Besylate (Norvasc -) 10 mg PO DAILY [facility] Last Admin: 10/14/18 09:14 Dose: 10 mg Atorvastatin Calcium (Lipitor -) 40 mg PO HS [facility] Last Admin: 10/13/18 23:30 Dose: 40 mg Carbamazepine (Tegretol Oral Suspension -) 200 mg PO Q6HPO [facility] Last Admin: 10/14/18 12:24 Dose: 200 mg Chlorpromazine HCl (Thorazine Injection -) 50 mg IM Q6H PRN PRN Reason: NAUSEA AND/OR VOMITING Clonidine (Catapres -) 0.2 mg PO DAILY [facility] Last Admin: 10/14/18 09:13 Dose: 0.2 mg Piperacillin Sod/Tazobactam (Sod 3.375 gm/ Dextrose) 50 mls @ 100 mls/hr IVPB Q8H-IV [facility]; Protocol Last Admin: 10/14/18 09:15 Dose: 100 mls/hr Potassium Chloride 20 meq/ (Amino Acids) 1,010 mls @ 100 mls/hr IVPB Q10H [facility] Last Admin: 10/14/18 05:37 Dose: 100 mls/hr Lidocaine (Lidoderm Patch -) 1 patch TP DAILY [facility] Last Admin: 10/14/18 10:25 Dose: 1 patch Losartan Potassium (Cozaar -) 100 mg PO BID [facility] Last Admin: 10/14/18 09:13 Dose: 100 mg Miscellaneous (Lidoderm Patch Removal) 1 each MC DAILY@2200 [facility] Last Admin: 10/14/18 00:21 Dose: Not Given Ondansetron HCl (Zofran Injection) 4 mg IVPUSH Q6H PRN PRN Reason: NAUSEA AND/OR VOMITING Last Admin: 10/12/18 23:26 Dose: 4 mg Oxybutynin Chloride (Ditropan -) 5 mg PO BID [facility] Last Admin: 10/14/18 09:13 Dose: 5 mg Oxycodone HCl (Oxycontin -) 10 mg PO BID [facility] Last Admin: 10/14/18 09:14 Dose: 10 mg Pantoprazole Sodium (Protonix Iv) 40 mg IVPUSH BID [facility] Last Admin: 10/14/18 09:14 Dose: 40 mg Tamsulosin HCl (Flomax -) 0.4 mg PO DAILY@0830 [facility] Last Admin: 10/14/18 09:13 Dose: 0.4 mg Topiramate (Topamax -) 100 mg PO BID [facility] Last Admin: 10/14/18 10:55 Dose: 100 mg Valproate Sodium (Depacon Injection -) 1,000 mg IVPB BID [facility] Last Admin: 10/14/18 10:16 Dose: 1,000 mg - Objective Vital Signs: Vital Signs Temperature 98.1 F 10/14/18 15:32 Pulse Rate 92 H 10/14/18 15:32 Respiratory Rate 18 10/14/18 15:32 Blood Pressure 134/76 10/14/18 15:32 O2 Sat by Pulse Oximetry (%) 95 10/14/18 09:00 Labs: CBC, BMP 10/09/18 07:10 10/10/18 06:00 INR, PTT INR 1.09 (0.83-1.09) 09/30/18 06:20 Problem List - Problems (1) Abdominal pain Code(s): R10.9 - UNSPECIFIED ABDOMINAL PAIN Qualifiers: Abdominal location: right upper quadrant Qualified Code(s): R10.11 - Right upper quadrant pain (2) Gastric ulcer Code(s): K25.9 - GASTRIC ULCER, UNSP ACUTE OR CHRONIC, W/O HEMOR OR PERF Qualifiers: Gastric ulcer complication status: without hemorrhage or perforation (3) Essential (primary) hypertension Code(s): I10 - ESSENTIAL (PRIMARY) HYPERTENSION (4) Seizure disorder Code(s): G40.909 - EPILEPSY, UNSP, NOT INTRACTABLE, WITHOUT STATUS EPILEPTICUS Assessment/Plan Surgery: Patient remains with abdominal distention, No peritonitis. CT scan shows ? large bowel obstruction , ? distal transverse colon, with collapsed descending colon. CT was reviewed with Dr. Pacheco. Discussed with Dr. Ruiz, will obtain gastrograffin enema, to r/o large bowel obstruction. Patient and his were explained. Large bowel obstruction ? Large gastric tumor with mass extending into the head of the pancreas.
[2018-10-14] MEDS: METOCLOPRAMIDE HCL 10 MG TABLET (FP) PO SCH (19:15)
[2018-10-14] MEDS: ATORVASTATIN CA 40 MG TABLET (FP) PO SCH ×2 (23:13→23:42)
[2018-10-15] MEDS ORDERED: DEXTROSE 5%-WATER - 50 ML IVPB ONE ×3 (01:22→17:07)
[2018-10-15] MEDS ORDERED: PIPERACILLIN/TAZOBACTAM 3.375 GM VIAL IVPB ONE ×3 (01:22→17:07)
[2018-10-15] MEDS: PIPERACILLIN/TAZOB 3.375 GM 3.375 GM in DEXTROSE 5%-WATER - 50 ML IVPB SCH ×3 (01:56→17:15)
[2018-10-15] MEDS: POTASSIUM CHLORIDE 20 MEQ in AMINO ACIDS 4.25%/D5W 1,000 ML IVPB SCH ×3 (05:20→17:19)
[2018-10-15] MEDS: carBAMazepine 200 MG/10 ML UNIT-DOSE CUP PO SCH ×3 (05:24→17:48)
[2018-10-15] MEDS: MAG HYDROX/AL HYDROX/SIMETH 30 ML UNIT-DOSE CUP PO SCH ×3 (05:24→17:15)
[2018-10-15] MEDS: METOCLOPRAMIDE HCL 10 MG TABLET (FP) PO SCH ×3 (06:00→17:15)
[2018-10-15] MEDS ORDERED: PT OWN MED DRAWER 7, Y5N ONE ×2 (06:49→21:01)
[2018-10-15] MEDS: ONDANSETRON 4 MG/2 ML VIAL IVPUSH PRN ×2 (06:58→17:15)
[2018-10-15 08:11] LABS: HEMATOCRIT 45.3 % (35.4-49); HEMOGLOBIN 15.2 GM/dL (11.7-16.9); MCH 32.2 pg (25.7-33.7); MCHC 33.6 g/dl (32.0-35.9); MEAN CELL VOLUME 95.6 fl (80-96); MEAN PLT VOLUME 8.8 fl (7.5-11.1); PLATELET COUNT 267 K/MM3 (134-434); RBC 4.74 M/mm3 (4.00-5.60); RDW 14.2 % (11.9-15.9); WHITE BLOOD COUNT 11.7 K/mm3 (4.0-10.0)
[2018-10-15 08:44] LABS: ALBUMIN 2.6 g/dl (3.4-5.0); ALK PHOS 146 U/L (45-117); ANION GAP 8 MMOL/L (8-16); BILIRUBIN,TOTAL 0.7 mg/dL (0.2-1); BLOOD UREA NITROGEN 44 mg/dL (7-18); CALCIUM 7.5 mg/dL (8.5-10.1); CHLORIDE 98 mmol/L (98-107); CO2 26 mmol/L (21-32); CREATININE 1.7 mg/dL (0.55-1.3); GLUCOSE,RANDOM 122 mg/dL (74-106); POTASSIUM 3.9 mmol/L (3.5-5.1); SGOT/AST 89 U/L (15-37); SGPT/ALT 35 U/L (13-61); SODIUM 132 mmol/L (136-145); TOT PROT 7.5 g/dl (6.4-8.2)
--- NOTE | 2018-10-15 09:17 | PN ---
Progress Note, Physician Chief Complaint: Feels little better History of Present Illness: NGT out Kept NPO - Current Medication List Current Medications: Active Medications Al Hydroxide/Mg Hydroxide (Mylanta Oral Suspension -) 30 ml PO TID@0600,1200, 1800 [facility] Last Admin: 10/15/18 05:24 Dose: Not Given Allopurinol (Zyloprim -) 100 mg PO DAILY [facility] Last Admin: 10/14/18 09:13 Dose: 100 mg Amlodipine Besylate (Norvasc -) 10 mg PO DAILY [facility] Last Admin: 10/14/18 09:14 Dose: 10 mg Atorvastatin Calcium (Lipitor -) 40 mg PO HS [facility] Last Admin: 10/14/18 23:42 Dose: Not Given Carbamazepine (Tegretol Oral Suspension -) 200 mg PO Q6HPO [facility] Last Admin: 10/15/18 05:24 Dose: Not Given Chlorpromazine HCl (Thorazine Injection -) 50 mg IM Q6H PRN PRN Reason: NAUSEA AND/OR VOMITING Clonidine (Catapres -) 0.2 mg PO DAILY [facility] Last Admin: 10/14/18 09:13 Dose: 0.2 mg Piperacillin Sod/Tazobactam (Sod 3.375 gm/ Dextrose) 50 mls @ 100 mls/hr IVPB Q8H-IV [facility]; Protocol Last Admin: 10/15/18 01:56 Dose: 100 mls/hr Potassium Chloride 20 meq/ (Amino Acids) 1,010 mls @ 100 mls/hr IVPB Q10H [facility] Last Admin: 10/15/18 05:20 Dose: 100 mls/hr Lidocaine (Lidoderm Patch -) 1 patch TP DAILY [facility] Last Admin: 10/14/18 10:25 Dose: 1 patch Losartan Potassium (Cozaar -) 100 mg PO BID [facility] Last Admin: 10/14/18 23:41 Dose: Not Given Metoclopramide HCl (Reglan -) 10 mg PO TIDAC [facility] Last Admin: 10/15/18 06:00 Dose: Not Given Miscellaneous (Lidoderm Patch Removal) 1 each MC DAILY@2200 [facility] Last Admin: 10/14/18 23:14 Dose: 1 each Ondansetron HCl (Zofran Injection) 4 mg IVPUSH Q6H PRN PRN Reason: NAUSEA AND/OR VOMITING Last Admin: 10/15/18 06:58 Dose: 4 mg Oxybutynin Chloride (Ditropan -) 5 mg PO BID [facility] Last Admin: 10/14/18 23:41 Dose: Not Given Oxycodone HCl (Oxycontin -) 10 mg PO BID [facility] Last Admin: 10/14/18 23:43 Dose: Not Given Pantoprazole Sodium (Protonix Iv) 40 mg IVPUSH BID [facility] Last Admin: 10/14/18 23:12 Dose: 40 mg Tamsulosin HCl (Flomax -) 0.4 mg PO DAILY@0830 [facility] Last Admin: 10/14/18 09:13 Dose: 0.4 mg Topiramate (Topamax -) 100 mg PO BID [facility] Last Admin: 10/14/18 23:47 Dose: Not Given Valproate Sodium (Depacon Injection -) 1,000 mg IVPB BID [facility] Last Admin: 10/14/18 23:13 Dose: 1,000 mg - Objective Vital Signs: Vital Signs Temperature 99.4 F 10/15/18 06:00 Pulse Rate 88 10/15/18 06:00 Respiratory Rate 88 H 10/15/18 06:00 Blood Pressure 145/79 10/15/18 06:00 O2 Sat by Pulse Oximetry (%) 95 10/14/18 21:00 Constitutional: Yes: Mild Distress Eyes: Yes: WNL HENT: Yes: WNL Neck: Yes: WNL Cardiovascular: Yes: WNL Respiratory: Yes: WNL Gastrointestinal: Yes: Hypoactive Bowel Sounds ...Rectal Exam: Yes: Deferred Genitourinary: Yes: WNL Edema: No Psychiatric: Yes: Alert Labs: CBC, BMP 10/15/18 07:00 10/15/18 07:00 INR, PTT INR 1.09 (0.83-1.09) 09/30/18 06:20 Assessment/Plan Cr of 1.7 noted Will repeat in AM
[2018-10-15] MEDS: LOSARTAN POTASSIUM 50 MG TABLET (FP) PO SCH ×3 (10:56→21:31)
[2018-10-15] MEDS: ALLOPURINOL 100 MG TABLET (FP) PO SCH (10:57)
[2018-10-15] MEDS: amLODIPine BESYLATE 10 MG TABLET (FP) PO SCH (10:57)
[2018-10-15] MEDS: OXYBUTYNIN CHLORIDE 5 MG TABLET PO SCH ×2 (10:57→21:32)
[2018-10-15] MEDS: oxyCODONE HCL 10 MG SUSTAINED ACTING TABLET PO SCH ×2 (10:58→21:31)
[2018-10-15] MEDS: cloNIDine HCL 0.1 MG TABLET PO SCH (10:58)
[2018-10-15] MEDS: TAMSULOSIN HCL 0.4 MG CAP PO SCH (10:58)
[2018-10-15] MEDS: LIDOCAINE 5% TOPICAL PATCH TP SCH (10:59)
[2018-10-15] MEDS: PANTOPRAZOLE SODIUM 40 MG VIAL IVPUSH SCH ×2 (11:00→21:32)
[2018-10-15] MEDS: TOPIRAMATE 100 MG TABLET PO SCH ×2 (11:00→21:33)
[2018-10-15] MEDS: VALPROATE SODIUM 500 MG/5 ML VIAL IVPB SCH ×2 (11:01→21:32)
--- NOTE | 2018-10-15 13:57 | PN ---
Progress Note, Physician History of Present Illness: Pt seen and examined, events noted, labs/imaging results reviewed. Pt states he is generally not feeling well but no episodes of vomiting today and he has been having BMs. - Current Medication List Current Medications: Active Medications Al Hydroxide/Mg Hydroxide (Mylanta Oral Suspension -) 30 ml PO TID@0600,1200, 1800 [facility] Last Admin: 10/15/18 05:24 Dose: Not Given Allopurinol (Zyloprim -) 100 mg PO DAILY [facility] Last Admin: 10/15/18 10:57 Dose: 100 mg Amlodipine Besylate (Norvasc -) 10 mg PO DAILY [facility] Last Admin: 10/15/18 10:57 Dose: 10 mg Atorvastatin Calcium (Lipitor -) 40 mg PO HS [facility] Last Admin: 10/14/18 23:42 Dose: Not Given Carbamazepine (Tegretol Oral Suspension -) 200 mg PO Q6HPO [facility] Last Admin: 10/15/18 05:24 Dose: Not Given Chlorpromazine HCl (Thorazine Injection -) 50 mg IM Q6H PRN PRN Reason: NAUSEA AND/OR VOMITING Clonidine (Catapres -) 0.2 mg PO DAILY [facility] Last Admin: 10/15/18 10:58 Dose: 0.2 mg Piperacillin Sod/Tazobactam (Sod 3.375 gm/ Dextrose) 50 mls @ 100 mls/hr IVPB Q8H-IV [facility]; Protocol Last Admin: 10/15/18 11:01 Dose: 100 mls/hr Potassium Chloride 20 meq/ (Amino Acids) 1,010 mls @ 100 mls/hr IVPB Q10H [facility] Last Admin: 10/15/18 05:20 Dose: 100 mls/hr Lidocaine (Lidoderm Patch -) 1 patch TP DAILY [facility] Last Admin: 10/15/18 10:59 Dose: 1 patch Losartan Potassium (Cozaar -) 100 mg PO BID [facility] Last Admin: 10/15/18 10:58 Dose: 100 mg Metoclopramide HCl (Reglan -) 10 mg PO TIDAC [facility] Last Admin: 10/15/18 10:59 Dose: 10 mg Miscellaneous (Lidoderm Patch Removal) 1 each MC DAILY@2200 [facility] Last Admin: 10/14/18 23:14 Dose: 1 each Ondansetron HCl (Zofran Injection) 4 mg IVPUSH Q6H PRN PRN Reason: NAUSEA AND/OR VOMITING Last Admin: 10/15/18 06:58 Dose: 4 mg Oxybutynin Chloride (Ditropan -) 5 mg PO BID [facility] Last Admin: 10/15/18 10:57 Dose: 5 mg Oxycodone HCl (Oxycontin -) 10 mg PO BID [facility] Last Admin: 10/15/18 10:58 Dose: 10 mg Pantoprazole Sodium (Protonix Iv) 40 mg IVPUSH BID [facility] Last Admin: 10/15/18 11:00 Dose: 40 mg Tamsulosin HCl (Flomax -) 0.4 mg PO DAILY@0830 [facility] Last Admin: 10/15/18 10:58 Dose: 0.4 mg Topiramate (Topamax -) 100 mg PO BID [facility] Last Admin: 10/15/18 11:00 Dose: 100 mg Valproate Sodium (Depacon Injection -) 1,000 mg IVPB BID [facility] Last Admin: 10/15/18 11:01 Dose: 1,000 mg - Objective Vital Signs: Vital Signs Temperature 99.4 F 10/15/18 06:00 Pulse Rate 88 10/15/18 06:00 Respiratory Rate 88 H 10/15/18 06:00 Blood Pressure 145/79 10/15/18 06:00 O2 Sat by Pulse Oximetry (%) 95 10/14/18 21:00 Constitutional: Yes: No Distress Cardiovascular: Yes: Regular Rate and Rhythm Respiratory: Yes: Regular Gastrointestinal: Yes: Other (hypoactive) Genitourinary: Yes: WNL Neurological: Yes: Alert Labs: CBC, BMP 10/15/18 07:00 10/15/18 07:00 INR, PTT INR 1.09 (0.83-1.09) 09/30/18 06:20 Microbiology 10/11/18 14:15 Blood - Peripheral Venous Blood Culture - Preliminary NO GROWTH OBTAINED AFTER 72 HOURS, INCUBATION TO CONTINUE FOR 2 DAYS. 10/11/18 13:58 Blood - Peripheral Venous Blood Culture - Preliminary NO GROWTH OBTAINED AFTER 72 HOURS, INCUBATION TO CONTINUE FOR 2 DAYS. 10/11/18 18:40 Urine - Urine Clean Catch Urine Culture - Final NO GROWTH OBTAINED 09/28/18 12:30 Urine - Urine Clean Catch Urine Culture - Final NO GROWTH OBTAINED Problem List - Problems (1) Acute renal failure (ARF) Code(s): N17.9 - ACUTE KIDNEY FAILURE, UNSPECIFIED (2) BPH (benign prostatic hyperplasia) Code(s): N40.0 - BENIGN PROSTATIC HYPERPLASIA WITHOUT LOWER URINRY TRACT SYMP Assessment/Plan Gastric CA Retrogastric collection/abscess Bowel obstruction - now having BMs/no vomiting today JERRELL -- s/p peritoneal washout/liver nodule biopsy -- continue current antibiotic -- GI following continue monitor
--- NOTE | 2018-10-15 14:26 | PN ---
Progress Note, Physician - Current Medication List Current Medications: Active Medications Al Hydroxide/Mg Hydroxide (Mylanta Oral Suspension -) 30 ml PO TID@0600,1200, 1800 [facility] Last Admin: 10/15/18 05:24 Dose: Not Given Allopurinol (Zyloprim -) 100 mg PO DAILY [facility] Last Admin: 10/15/18 10:57 Dose: 100 mg Amlodipine Besylate (Norvasc -) 10 mg PO DAILY [facility] Last Admin: 10/15/18 10:57 Dose: 10 mg Atorvastatin Calcium (Lipitor -) 40 mg PO HS [facility] Last Admin: 10/14/18 23:42 Dose: Not Given Carbamazepine (Tegretol Oral Suspension -) 200 mg PO Q6HPO [facility] Last Admin: 10/15/18 05:24 Dose: Not Given Chlorpromazine HCl (Thorazine Injection -) 50 mg IM Q6H PRN PRN Reason: NAUSEA AND/OR VOMITING Clonidine (Catapres -) 0.2 mg PO DAILY [facility] Last Admin: 10/15/18 10:58 Dose: 0.2 mg Piperacillin Sod/Tazobactam (Sod 3.375 gm/ Dextrose) 50 mls @ 100 mls/hr IVPB Q8H-IV [facility]; Protocol Last Admin: 10/15/18 11:01 Dose: 100 mls/hr Potassium Chloride 20 meq/ (Amino Acids) 1,010 mls @ 100 mls/hr IVPB Q10H [facility] Last Admin: 10/15/18 05:20 Dose: 100 mls/hr Lidocaine (Lidoderm Patch -) 1 patch TP DAILY [facility] Last Admin: 10/15/18 10:59 Dose: 1 patch Losartan Potassium (Cozaar -) 100 mg PO BID [facility] Last Admin: 10/15/18 10:58 Dose: 100 mg Metoclopramide HCl (Reglan -) 10 mg PO TIDAC [facility] Last Admin: 10/15/18 10:59 Dose: 10 mg Miscellaneous (Lidoderm Patch Removal) 1 each MC DAILY@2200 [facility] Last Admin: 10/14/18 23:14 Dose: 1 each Ondansetron HCl (Zofran Injection) 4 mg IVPUSH Q6H PRN PRN Reason: NAUSEA AND/OR VOMITING Last Admin: 10/15/18 06:58 Dose: 4 mg Oxybutynin Chloride (Ditropan -) 5 mg PO BID [facility] Last Admin: 10/15/18 10:57 Dose: 5 mg Oxycodone HCl (Oxycontin -) 10 mg PO BID [facility] Last Admin: 10/15/18 10:58 Dose: 10 mg Pantoprazole Sodium (Protonix Iv) 40 mg IVPUSH BID [facility] Last Admin: 10/15/18 11:00 Dose: 40 mg Tamsulosin HCl (Flomax -) 0.4 mg PO DAILY@0830 [facility] Last Admin: 10/15/18 10:58 Dose: 0.4 mg Topiramate (Topamax -) 100 mg PO BID [facility] Last Admin: 10/15/18 11:00 Dose: 100 mg Valproate Sodium (Depacon Injection -) 1,000 mg IVPB BID [facility] Last Admin: 10/15/18 11:01 Dose: 1,000 mg - Objective Vital Signs: Vital Signs Temperature 99.4 F 10/15/18 06:00 Pulse Rate 88 10/15/18 06:00 Respiratory Rate 88 H 10/15/18 06:00 Blood Pressure 145/79 10/15/18 06:00 O2 Sat by Pulse Oximetry (%) 95 10/14/18 21:00 Labs: CBC, BMP 10/15/18 07:00 10/15/18 07:00 INR, PTT INR 1.09 (0.83-1.09) 09/30/18 06:20 Problem List - Problems (1) Abdominal pain Code(s): R10.9 - UNSPECIFIED ABDOMINAL PAIN Qualifiers: Abdominal location: right upper quadrant Qualified Code(s): R10.11 - Right upper quadrant pain (2) Gastric ulcer Code(s): K25.9 - GASTRIC ULCER, UNSP ACUTE OR CHRONIC, W/O HEMOR OR PERF Qualifiers: Gastric ulcer complication status: without hemorrhage or perforation (3) Essential (primary) hypertension Code(s): I10 - ESSENTIAL (PRIMARY) HYPERTENSION (4) Seizure disorder Code(s): G40.909 - EPILEPSY, UNSP, NOT INTRACTABLE, WITHOUT STATUS EPILEPTICUS Assessment/Plan Surgery: Patient is feeling better today. Wants to have liquids by mouth. NG tube is out. No nausea, no vomiting. Has had multiple bowel movements. Abdomen is oft, not tender. Impression : Ilius secondary to narcotic patches. will D/C gastrograffin enema. Resume liquids by mouth. Oncology to evaluate for chemotherapy.
[2018-10-15] MEDS ORDERED: MEPERIDINE HCL CARPU-JECT 25 MG/1 ML DISP.SYRIN IM ONE (20:30)
[2018-10-15] MEDS: ATORVASTATIN CA 40 MG TABLET (FP) PO SCH (21:31)
[2018-10-15] MEDS: LIDOCAINE PATCH REMOVAL MC SCH (22:04)
[2018-10-16] MEDS: POTASSIUM CHLORIDE 20 MEQ in AMINO ACIDS 4.25%/D5W 1,000 ML IVPB SCH ×4 (00:06→18:08)
[2018-10-16] MEDS: carBAMazepine 200 MG/10 ML UNIT-DOSE CUP PO SCH ×4 (00:31→18:09)
[2018-10-16] MEDS ORDERED: DEXTROSE 5%-WATER - 50 ML IVPB ONE ×3 (01:44→17:50)
[2018-10-16] MEDS ORDERED: PIPERACILLIN/TAZOBACTAM 3.375 GM VIAL IVPB ONE ×3 (01:44→17:49)
[2018-10-16] MEDS: PIPERACILLIN/TAZOB 3.375 GM 3.375 GM in DEXTROSE 5%-WATER - 50 ML IVPB SCH ×3 (02:42→18:07)
[2018-10-16] MEDS: MAG HYDROX/AL HYDROX/SIMETH 30 ML UNIT-DOSE CUP PO SCH ×3 (06:27→18:08)
[2018-10-16] MEDS: METOCLOPRAMIDE HCL 10 MG TABLET (FP) PO SCH ×3 (06:32→18:08)
[2018-10-16 08:46] LABS: HEMATOCRIT 42.7 % (35.4-49); HEMOGLOBIN 14.5 GM/dL (11.7-16.9); MCH 32.1 pg (25.7-33.7); MCHC 33.9 g/dl (32.0-35.9); MEAN CELL VOLUME 94.8 fl (80-96); MEAN PLT VOLUME 8.8 fl (7.5-11.1); PLATELET COUNT 261 K/MM3 (134-434); RBC 4.51 M/mm3 (4.00-5.60); RDW 14.2 % (11.9-15.9)
[2018-10-16] MEDS ORDERED: PT OWN MED DRAWER 7, Y5N ONE (08:58)
[2018-10-16 09:21] LABS: ALBUMIN 2.4 g/dl (3.4-5.0); ALK PHOS 142 U/L (45-117); ANION GAP 8 MMOL/L (8-16); BILIRUBIN,TOTAL 0.6 mg/dL (0.2-1); BLOOD UREA NITROGEN 29 mg/dL (7-18); CALCIUM 7.4 mg/dL (8.5-10.1); CHLORIDE 101 mmol/L (98-107); CO2 24 mmol/L (21-32); CREATININE 1.3 mg/dL (0.55-1.3); GLUCOSE,RANDOM 110 mg/dL (74-106); POTASSIUM 4.8 mmol/L (3.5-5.1); SGOT/AST 132 U/L (15-37); SGPT/ALT 59 U/L (13-61); SODIUM 133 mmol/L (136-145); TOT PROT 7.9 g/dl (6.4-8.2)
[2018-10-16] MEDS: oxyCODONE HCL 10 MG SUSTAINED ACTING TABLET PO SCH ×2 (09:23→21:18)
[2018-10-16] MEDS: ALLOPURINOL 100 MG TABLET (FP) PO SCH (09:24)
[2018-10-16] MEDS: LOSARTAN POTASSIUM 50 MG TABLET (FP) PO SCH ×2 (09:24→21:20)
[2018-10-16] MEDS: cloNIDine HCL 0.1 MG TABLET PO SCH (09:24)
[2018-10-16] MEDS: TAMSULOSIN HCL 0.4 MG CAP PO SCH (09:24)
[2018-10-16] MEDS: OXYBUTYNIN CHLORIDE 5 MG TABLET PO SCH ×2 (09:24→21:20)
[2018-10-16] MEDS: amLODIPine BESYLATE 10 MG TABLET (FP) PO SCH (09:24)
[2018-10-16] MEDS: VALPROATE SODIUM 500 MG/5 ML VIAL IVPB SCH ×2 (09:25→21:20)
[2018-10-16] MEDS: PANTOPRAZOLE SODIUM 40 MG VIAL IVPUSH SCH ×2 (09:25→21:21)
[2018-10-16] MEDS: TOPIRAMATE 100 MG TABLET PO SCH ×2 (09:26→21:21)
[2018-10-16] MEDS: LIDOCAINE 5% TOPICAL PATCH TP SCH (09:26)
--- NOTE | 2018-10-16 13:35 | PN ---
Progress Note, Physician Chief Complaint: Feels better - Current Medication List Current Medications: Active Medications Al Hydroxide/Mg Hydroxide (Mylanta Oral Suspension -) 30 ml PO TID@0600,1200, 1800 [facility] Last Admin: 10/16/18 13:26 Dose: Not Given Allopurinol (Zyloprim -) 100 mg PO DAILY [facility] Last Admin: 10/16/18 09:24 Dose: 100 mg Amlodipine Besylate (Norvasc -) 10 mg PO DAILY [facility] Last Admin: 10/16/18 09:24 Dose: 10 mg Atorvastatin Calcium (Lipitor -) 40 mg PO HS [facility] Last Admin: 10/15/18 21:31 Dose: 40 mg Carbamazepine (Tegretol Oral Suspension -) 200 mg PO Q6HPO [facility] Last Admin: 10/16/18 13:26 Dose: Not Given Chlorpromazine HCl (Thorazine Injection -) 50 mg IM Q6H PRN PRN Reason: NAUSEA AND/OR VOMITING Clonidine (Catapres -) 0.2 mg PO DAILY [facility] Last Admin: 10/16/18 09:24 Dose: 0.2 mg Piperacillin Sod/Tazobactam (Sod 3.375 gm/ Dextrose) 50 mls @ 100 mls/hr IVPB Q8H-IV [facility]; Protocol Last Admin: 10/16/18 09:25 Dose: 100 mls/hr Potassium Chloride 20 meq/ (Amino Acids) 1,010 mls @ 100 mls/hr IVPB Q10H [facility] Last Admin: 10/16/18 09:21 Dose: Not Given Lidocaine (Lidoderm Patch -) 1 patch TP DAILY [facility] Last Admin: 10/16/18 09:26 Dose: 1 patch Losartan Potassium (Cozaar -) 100 mg PO BID [facility] Last Admin: 10/16/18 09:24 Dose: 100 mg Metoclopramide HCl (Reglan -) 10 mg PO TIDAC [facility] Last Admin: 10/16/18 12:27 Dose: 10 mg Miscellaneous (Lidoderm Patch Removal) 1 each MC DAILY@2200 [facility] Last Admin: 10/15/18 22:04 Dose: 1 each Ondansetron HCl (Zofran Injection) 4 mg IVPUSH Q6H PRN PRN Reason: NAUSEA AND/OR VOMITING Last Admin: 10/15/18 17:15 Dose: 4 mg Oxybutynin Chloride (Ditropan -) 5 mg PO BID [facility] Last Admin: 10/16/18 09:24 Dose: 5 mg Oxycodone HCl (Oxycontin -) 10 mg PO BID [facility] Last Admin: 10/16/18 09:23 Dose: 10 mg Pantoprazole Sodium (Protonix Iv) 40 mg IVPUSH BID [facility] Last Admin: 10/16/18 09:25 Dose: 40 mg Tamsulosin HCl (Flomax -) 0.4 mg PO DAILY@0830 [facility] Last Admin: 10/16/18 09:24 Dose: 0.4 mg Topiramate (Topamax -) 100 mg PO BID [facility] Last Admin: 10/16/18 09:26 Dose: 100 mg Valproate Sodium (Depacon Injection -) 1,000 mg IVPB BID [facility] Last Admin: 10/16/18 09:25 Dose: 1,000 mg - Objective Vital Signs: Vital Signs Temperature 98.0 F 10/16/18 06:34 Pulse Rate 80 10/16/18 06:34 Respiratory Rate 18 10/16/18 06:34 Blood Pressure 164/92 10/16/18 06:34 O2 Sat by Pulse Oximetry (%) 95 10/15/18 21:00 Constitutional: Yes: No Distress Eyes: Yes: WNL HENT: Yes: WNL Neck: Yes: WNL Cardiovascular: Yes: WNL Respiratory: Yes: WNL Gastrointestinal: Yes: Soft ...Rectal Exam: Yes: Deferred Genitourinary: Yes: WNL Musculoskeletal: Yes: WNL Neurological: Yes: Alert Labs: CBC, BMP 10/16/18 07:45 10/16/18 07:45 INR, PTT INR 1.09 (0.83-1.09) 09/30/18 06:20 Assessment/Plan Regular diet
--- NOTE | 2018-10-16 13:40 | PN ---
Progress Note, Physician - Current Medication List Current Medications: Active Medications Al Hydroxide/Mg Hydroxide (Mylanta Oral Suspension -) 30 ml PO TID@0600,1200, 1800 [facility] Last Admin: 10/16/18 13:26 Dose: Not Given Allopurinol (Zyloprim -) 100 mg PO DAILY [facility] Last Admin: 10/16/18 09:24 Dose: 100 mg Amlodipine Besylate (Norvasc -) 10 mg PO DAILY [facility] Last Admin: 10/16/18 09:24 Dose: 10 mg Atorvastatin Calcium (Lipitor -) 40 mg PO HS [facility] Last Admin: 10/15/18 21:31 Dose: 40 mg Carbamazepine (Tegretol Oral Suspension -) 200 mg PO Q6HPO [facility] Last Admin: 10/16/18 13:26 Dose: Not Given Chlorpromazine HCl (Thorazine Injection -) 50 mg IM Q6H PRN PRN Reason: NAUSEA AND/OR VOMITING Clonidine (Catapres -) 0.2 mg PO DAILY [facility] Last Admin: 10/16/18 09:24 Dose: 0.2 mg Piperacillin Sod/Tazobactam (Sod 3.375 gm/ Dextrose) 50 mls @ 100 mls/hr IVPB Q8H-IV [facility]; Protocol Last Admin: 10/16/18 09:25 Dose: 100 mls/hr Potassium Chloride 20 meq/ (Amino Acids) 1,010 mls @ 100 mls/hr IVPB Q10H [facility] Last Admin: 10/16/18 09:21 Dose: Not Given Lidocaine (Lidoderm Patch -) 1 patch TP DAILY [facility] Last Admin: 10/16/18 09:26 Dose: 1 patch Losartan Potassium (Cozaar -) 100 mg PO BID [facility] Last Admin: 10/16/18 09:24 Dose: 100 mg Metoclopramide HCl (Reglan -) 10 mg PO TIDAC [facility] Last Admin: 10/16/18 12:27 Dose: 10 mg Miscellaneous (Lidoderm Patch Removal) 1 each MC DAILY@2200 [facility] Last Admin: 10/15/18 22:04 Dose: 1 each Ondansetron HCl (Zofran Injection) 4 mg IVPUSH Q6H PRN PRN Reason: NAUSEA AND/OR VOMITING Last Admin: 10/15/18 17:15 Dose: 4 mg Oxybutynin Chloride (Ditropan -) 5 mg PO BID [facility] Last Admin: 10/16/18 09:24 Dose: 5 mg Oxycodone HCl (Oxycontin -) 10 mg PO BID [facility] Last Admin: 10/16/18 09:23 Dose: 10 mg Pantoprazole Sodium (Protonix Iv) 40 mg IVPUSH BID [facility] Last Admin: 10/16/18 09:25 Dose: 40 mg Tamsulosin HCl (Flomax -) 0.4 mg PO DAILY@0830 [facility] Last Admin: 10/16/18 09:24 Dose: 0.4 mg Topiramate (Topamax -) 100 mg PO BID [facility] Last Admin: 10/16/18 09:26 Dose: 100 mg Valproate Sodium (Depacon Injection -) 1,000 mg IVPB BID [facility] Last Admin: 10/16/18 09:25 Dose: 1,000 mg - Objective Vital Signs: Vital Signs Temperature 98.0 F 10/16/18 06:34 Pulse Rate 80 10/16/18 06:34 Respiratory Rate 18 10/16/18 06:34 Blood Pressure 164/92 10/16/18 06:34 O2 Sat by Pulse Oximetry (%) 95 10/15/18 21:00 Labs: CBC, BMP 10/16/18 07:45 10/16/18 07:45 INR, PTT INR 1.09 (0.83-1.09) 09/30/18 06:20 Problem List - Problems (1) Abdominal pain Code(s): R10.9 - UNSPECIFIED ABDOMINAL PAIN Qualifiers: Abdominal location: right upper quadrant Qualified Code(s): R10.11 - Right upper quadrant pain (2) Gastric ulcer Code(s): K25.9 - GASTRIC ULCER, UNSP ACUTE OR CHRONIC, W/O HEMOR OR PERF Qualifiers: Gastric ulcer complication status: without hemorrhage or perforation (3) Essential (primary) hypertension Code(s): I10 - ESSENTIAL (PRIMARY) HYPERTENSION (4) Seizure disorder Code(s): G40.909 - EPILEPSY, UNSP, NOT INTRACTABLE, WITHOUT STATUS EPILEPTICUS Assessment/Plan Patient has been tolerating oral feeding, has had oat meal by mouth . Does not like Ensure. Will start IV Tylenol for pain Albumin is 2.4:2.6, hypoalbuminemia , malnutrition, Continue Clinimix, Progress diet with nutritional supplements. Abdomen is soft , not tender, Abdominal X-ray , pending. 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 secondary to infltration into the pancreas, 3).Malnutrition , Hypoalbuminemia. 4) Abdominal distention , ? secondary to pain patches. Will provide nutritional supplements, Continue Clinimix, Abdominal X-Ray, 5)Pain management, will hold narcotics. Spoke to patient , his , son and daughter.
--- NOTE | 2018-10-16 16:05 | PN ---
Progress Note, Physician History of Present Illness: Pt is alert, feeling better today, pain controlled. Tolerating diet. Temp 99.6F today but no new complaints. - Current Medication List Current Medications: Active Medications Acetaminophen (Ofirmev Injection -) 1,000 mg IVPB Q6H PRN PRN Reason: PAIN LEVEL 4 - 6 Al Hydroxide/Mg Hydroxide (Mylanta Oral Suspension -) 30 ml PO TID@0600,1200, 1800 [facility] Last Admin: 10/16/18 13:26 Dose: Not Given Allopurinol (Zyloprim -) 100 mg PO DAILY [facility] Last Admin: 10/16/18 09:24 Dose: 100 mg Amlodipine Besylate (Norvasc -) 10 mg PO DAILY [facility] Last Admin: 10/16/18 09:24 Dose: 10 mg Atorvastatin Calcium (Lipitor -) 40 mg PO HS [facility] Last Admin: 10/15/18 21:31 Dose: 40 mg Carbamazepine (Tegretol Oral Suspension -) 200 mg PO Q6HPO [facility] Last Admin: 10/16/18 13:26 Dose: Not Given Chlorpromazine HCl (Thorazine Injection -) 50 mg IM Q6H PRN PRN Reason: NAUSEA AND/OR VOMITING Clonidine (Catapres -) 0.2 mg PO DAILY [facility] Last Admin: 10/16/18 09:24 Dose: 0.2 mg Piperacillin Sod/Tazobactam (Sod 3.375 gm/ Dextrose) 50 mls @ 100 mls/hr IVPB Q8H-IV [facility]; Protocol Last Admin: 10/16/18 09:25 Dose: 100 mls/hr Potassium Chloride 20 meq/ (Amino Acids) 1,010 mls @ 100 mls/hr IVPB Q10H [facility] Last Admin: 10/16/18 09:21 Dose: Not Given Lidocaine (Lidoderm Patch -) 1 patch TP DAILY [facility] Last Admin: 10/16/18 09:26 Dose: 1 patch Losartan Potassium (Cozaar -) 100 mg PO BID [facility] Last Admin: 10/16/18 09:24 Dose: 100 mg Metoclopramide HCl (Reglan -) 10 mg PO TIDAC [facility] Last Admin: 10/16/18 12:27 Dose: 10 mg Miscellaneous (Lidoderm Patch Removal) 1 each MC DAILY@2200 [facility] Last Admin: 10/15/18 22:04 Dose: 1 each Ondansetron HCl (Zofran Injection) 4 mg IVPUSH Q6H PRN PRN Reason: NAUSEA AND/OR VOMITING Last Admin: 10/15/18 17:15 Dose: 4 mg Oxybutynin Chloride (Ditropan -) 5 mg PO BID [facility] Last Admin: 10/16/18 09:24 Dose: 5 mg Oxycodone HCl (Oxycontin -) 10 mg PO BID [facility] Last Admin: 10/16/18 09:23 Dose: 10 mg Pantoprazole Sodium (Protonix Iv) 40 mg IVPUSH BID [facility] Last Admin: 10/16/18 09:25 Dose: 40 mg Tamsulosin HCl (Flomax -) 0.4 mg PO DAILY@0830 [facility] Last Admin: 10/16/18 09:24 Dose: 0.4 mg Topiramate (Topamax -) 100 mg PO BID [facility] Last Admin: 10/16/18 09:26 Dose: 100 mg Valproate Sodium (Depacon Injection -) 1,000 mg IVPB BID [facility] Last Admin: 10/16/18 09:25 Dose: 1,000 mg - Objective Vital Signs: Vital Signs Temperature 99.6 F 10/16/18 13:46 Pulse Rate 82 10/16/18 13:46 Respiratory Rate 18 10/16/18 13:46 Blood Pressure 135/84 10/16/18 13:46 O2 Sat by Pulse Oximetry (%) 95 10/15/18 21:00 Constitutional: Yes: No Distress, Calm Cardiovascular: Yes: Regular Rate and Rhythm Respiratory: Yes: Regular Gastrointestinal: Yes: Normal Bowel Sounds, Soft, Tenderness (mild epigastric tenderness) Integumentary: Yes: WNL Neurological: Yes: Alert Labs: CBC, BMP 10/16/18 07:45 10/16/18 07:45 INR, PTT INR 1.09 (0.83-1.09) 09/30/18 06:20 Problem List - Problems (1) Acute renal failure (ARF) Code(s): N17.9 - ACUTE KIDNEY FAILURE, UNSPECIFIED (2) BPH (benign prostatic hyperplasia) Code(s): N40.0 - BENIGN PROSTATIC HYPERPLASIA WITHOUT LOWER URINRY TRACT SYMP Assessment/Plan Gastric CA Retrogastric collection/abscess s/p peritoneal washout/liver nodule biopsy Bowel obstruction - resolved JERRELL -- monitor temp, slightly elevated today but wbc normal -- continue current antibiotic -- no recent vomiting, pain controlled -- oncology f/u continue monitor
[2018-10-16] MEDS: ACETAMINOPHEN 1000 MG/100 ML VIAL (NON FORMULARY) IVPB PRN (16:20)
[2018-10-16] MEDS: ATORVASTATIN CA 40 MG TABLET (FP) PO SCH (21:20)
[2018-10-16] MEDS: LIDOCAINE PATCH REMOVAL MC SCH (21:20)
[2018-10-16] MEDS: carBAMazepine 200 MG TABLET PO SCH (21:23)
--- NOTE | 2018-10-16 21:52 | PN ---
Progress Note (short form) - Note Progress Note: Patient seen in follow up. Reports unrelieved pain. Otherwise starting to tolerate oral intake. Inpatient Meds reviewed. Current Medications Acetaminophen (Ofirmev Injection -) 1,000 mg IVPB Q6H PRN PRN Reason: PAIN LEVEL 4 - 6 Last Admin: 10/16/18 16:20 Dose: 1,000 mg Al Hydroxide/Mg Hydroxide (Mylanta Oral Suspension -) 30 ml PO TID@0600,1200, 1800 [facility] Last Admin: 10/16/18 18:08 Dose: Not Given Allopurinol (Zyloprim -) 100 mg PO DAILY [facility] Last Admin: 10/16/18 09:24 Dose: 100 mg Amlodipine Besylate (Norvasc -) 10 mg PO DAILY [facility] Last Admin: 10/16/18 09:24 Dose: 10 mg Atorvastatin Calcium (Lipitor -) 40 mg PO HS [facility] Last Admin: 10/16/18 21:20 Dose: 40 mg Carbamazepine (Tegretol -) 200 mg PO QID [facility] Last Admin: 10/16/18 21:23 Dose: 200 mg Chlorpromazine HCl (Thorazine Injection -) 50 mg IM Q6H PRN PRN Reason: NAUSEA AND/OR VOMITING Clonidine (Catapres -) 0.2 mg PO DAILY [facility] Last Admin: 10/16/18 09:24 Dose: 0.2 mg Piperacillin Sod/Tazobactam (Sod 3.375 gm/ Dextrose) 50 mls @ 100 mls/hr IVPB Q8H-IV [facility]; Protocol Last Admin: 10/16/18 18:07 Dose: 100 mls/hr Potassium Chloride 20 meq/ (Amino Acids) 1,010 mls @ 100 mls/hr IVPB Q10H [facility] Last Admin: 10/16/18 18:08 Dose: Not Given Lidocaine (Lidoderm Patch -) 1 patch TP DAILY [facility] Last Admin: 10/16/18 09:26 Dose: 1 patch Losartan Potassium (Cozaar -) 100 mg PO BID [facility] Last Admin: 10/16/18 21:20 Dose: 100 mg Metoclopramide HCl (Reglan -) 10 mg PO TIDAC [facility] Last Admin: 10/16/18 18:08 Dose: 10 mg Miscellaneous (Lidoderm Patch Removal) 1 each MC DAILY@2200 [facility] Last Admin: 10/16/18 21:20 Dose: 1 each Ondansetron HCl (Zofran Injection) 4 mg IVPUSH Q6H PRN PRN Reason: NAUSEA AND/OR VOMITING Last Admin: 10/15/18 17:15 Dose: 4 mg Oxybutynin Chloride (Ditropan -) 5 mg PO BID [facility] Last Admin: 10/16/18 21:20 Dose: 5 mg Oxycodone HCl (Oxycontin -) 10 mg PO BID [facility] Last Admin: 10/16/18 21:18 Dose: 10 mg Pantoprazole Sodium (Protonix Iv) 40 mg IVPUSH BID [facility] Last Admin: 10/16/18 21:21 Dose: 40 mg Tamsulosin HCl (Flomax -) 0.4 mg PO DAILY@0830 [facility] Last Admin: 10/16/18 09:24 Dose: 0.4 mg Topiramate (Topamax -) 100 mg PO BID [facility] Last Admin: 10/16/18 21:21 Dose: 100 mg Valproate Sodium (Depacon Injection -) 1,000 mg IVPB BID [facility] Last Admin: 10/16/18 21:20 Dose: 1,000 mg On Examination: Last Vital Signs Temp Pulse Resp BP Pulse Ox 98.9 F 84 18 148/70 95 10/16/18 18:32 10/16/18 18:32 10/16/18 18:32 10/16/18 18:32 10/16/18 09:00 General: In no acute distress, sitting in chair. Extremities: No pallor or icterus. No pedal edema. No palpable lymphadenopathy. CVS: S1, S2, regular, no gallop or murmur. Chest: good air entry bilaterally, clear Abdomen: Non-distended, expected tenderness. Neuro: Alert, oriented, non-focal. Labs: CBC, BMP 10/16/18 07:45 10/16/18 07:45 Assessment. Newly diagnosed locally advanced gastric carcinoma, with retrogastric collection /abscess s/p peritoneal washout/liver nodule biopsy (10/07) - complicated by post -surgical ileus (opioids contributing) - now recovering. Pain control -IV tylenol PRN ordered. Will continue to follow. Systemic palliative chemotherapy when recovered adequately from surgery.
[2018-10-17] MEDS ORDERED: PIPERACILLIN/TAZOBACTAM 3.375 GM VIAL IVPB ONE ×3 (01:57→18:58)
[2018-10-17] MEDS ORDERED: DEXTROSE 5%-WATER - 50 ML IVPB ONE ×3 (01:57→18:58)
[2018-10-17] MEDS: PIPERACILLIN/TAZOB 3.375 GM 3.375 GM in DEXTROSE 5%-WATER - 50 ML IVPB SCH ×3 (02:35→19:02)
[2018-10-17] MEDS: POTASSIUM CHLORIDE 20 MEQ in AMINO ACIDS 4.25%/D5W 1,000 ML IVPB SCH (03:00)
[2018-10-17] MEDS: MAG HYDROX/AL HYDROX/SIMETH 30 ML UNIT-DOSE CUP PO SCH ×3 (05:39→19:02)
[2018-10-17] MEDS: METOCLOPRAMIDE HCL 10 MG TABLET (FP) PO SCH ×3 (06:59→17:01)
--- NOTE | 2018-10-17 09:39 | PN ---
Progress Note, Physician Chief Complaint: Feels better - Current Medication List Current Medications: Active Medications Acetaminophen (Ofirmev Injection -) 1,000 mg IVPB Q6H PRN PRN Reason: PAIN LEVEL 4 - 6 Last Admin: 10/16/18 16:20 Dose: 1,000 mg Al Hydroxide/Mg Hydroxide (Mylanta Oral Suspension -) 30 ml PO TID@0600,1200, 1800 [facility] Last Admin: 10/17/18 05:39 Dose: Not Given Allopurinol (Zyloprim -) 100 mg PO DAILY [facility] Last Admin: 10/16/18 09:24 Dose: 100 mg Amlodipine Besylate (Norvasc -) 10 mg PO DAILY [facility] Last Admin: 10/16/18 09:24 Dose: 10 mg Atorvastatin Calcium (Lipitor -) 40 mg PO HS [facility] Last Admin: 10/16/18 21:20 Dose: 40 mg Carbamazepine (Tegretol -) 200 mg PO QID [facility] Last Admin: 10/16/18 21:23 Dose: 200 mg Chlorpromazine HCl (Thorazine Injection -) 50 mg IM Q6H PRN PRN Reason: NAUSEA AND/OR VOMITING Clonidine (Catapres -) 0.2 mg PO DAILY [facility] Last Admin: 10/16/18 09:24 Dose: 0.2 mg Piperacillin Sod/Tazobactam (Sod 3.375 gm/ Dextrose) 50 mls @ 100 mls/hr IVPB Q8H-IV [facility]; Protocol Last Admin: 10/17/18 02:35 Dose: 100 mls/hr Potassium Chloride 20 meq/ (Amino Acids) 1,010 mls @ 100 mls/hr IVPB Q10H [facility] Last Admin: 10/17/18 03:00 Dose: 100 mls/hr Lidocaine (Lidoderm Patch -) 1 patch TP DAILY [facility] Last Admin: 10/16/18 09:26 Dose: 1 patch Losartan Potassium (Cozaar -) 100 mg PO BID [facility] Last Admin: 10/16/18 21:20 Dose: 100 mg Metoclopramide HCl (Reglan -) 10 mg PO TIDAC [facility] Last Admin: 10/17/18 06:59 Dose: 10 mg Miscellaneous (Lidoderm Patch Removal) 1 each MC DAILY@2200 [facility] Last Admin: 10/16/18 21:20 Dose: 1 each Ondansetron HCl (Zofran Injection) 4 mg IVPUSH Q6H PRN PRN Reason: NAUSEA AND/OR VOMITING Last Admin: 10/15/18 17:15 Dose: 4 mg Oxybutynin Chloride (Ditropan -) 5 mg PO BID [facility] Last Admin: 10/16/18 21:20 Dose: 5 mg Oxycodone HCl (Oxycontin -) 10 mg PO BID [facility] Last Admin: 10/16/18 21:18 Dose: 10 mg Pantoprazole Sodium (Protonix Iv) 40 mg IVPUSH BID [facility] Last Admin: 10/16/18 21:21 Dose: 40 mg Tamsulosin HCl (Flomax -) 0.4 mg PO DAILY@0830 [facility] Last Admin: 10/16/18 09:24 Dose: 0.4 mg Topiramate (Topamax -) 100 mg PO BID [facility] Last Admin: 10/16/18 21:21 Dose: 100 mg Valproate Sodium (Depacon Injection -) 1,000 mg IVPB BID [facility] Last Admin: 10/16/18 21:20 Dose: 1,000 mg - Objective Vital Signs: Vital Signs Temperature 98.3 F 10/16/18 22:00 Pulse Rate 78 10/16/18 22:00 Respiratory Rate 20 10/16/18 22:00 Blood Pressure 102/53 L 10/16/18 22:00 O2 Sat by Pulse Oximetry (%) 95 10/16/18 21:00 Constitutional: Yes: Calm Eyes: Yes: WNL HENT: Yes: WNL Neck: Yes: WNL Cardiovascular: Yes: WNL Respiratory: Yes: WNL Gastrointestinal: Yes: Normal Bowel Sounds Edema: No Labs: CBC, BMP 10/16/18 07:45 10/16/18 07:45 INR, PTT INR 1.09 (0.83-1.09) 09/30/18 06:20 Assessment/Plan PT for ambulation Will discuss with Dr Gramajo
[2018-10-17] MEDS: LIDOCAINE 5% TOPICAL PATCH TP SCH (11:26)
[2018-10-17] MEDS: PANTOPRAZOLE SODIUM 40 MG VIAL IVPUSH SCH ×2 (11:27→22:32)
[2018-10-17] MEDS: OXYBUTYNIN CHLORIDE 5 MG TABLET PO SCH ×2 (11:27→22:31)
[2018-10-17] MEDS: LOSARTAN POTASSIUM 50 MG TABLET (FP) PO SCH ×2 (11:27→22:31)
[2018-10-17] MEDS: amLODIPine BESYLATE 10 MG TABLET (FP) PO SCH (11:27)
[2018-10-17] MEDS: cloNIDine HCL 0.1 MG TABLET PO SCH (11:27)
[2018-10-17] MEDS: TAMSULOSIN HCL 0.4 MG CAP PO SCH (11:28)
[2018-10-17] MEDS: ALLOPURINOL 100 MG TABLET (FP) PO SCH (11:28)
[2018-10-17] MEDS: VALPROATE SODIUM 500 MG/5 ML VIAL IVPB SCH ×2 (11:28→23:23)
[2018-10-17] MEDS: oxyCODONE HCL 10 MG SUSTAINED ACTING TABLET PO SCH ×2 (11:29→22:32)
[2018-10-17] MEDS: carBAMazepine 200 MG TABLET PO SCH ×4 (11:29→22:31)
[2018-10-17] MEDS: TOPIRAMATE 100 MG TABLET PO SCH ×2 (11:30→22:31)
[2018-10-17] MEDS: ACETAMINOPHEN 1000 MG/100 ML VIAL (NON FORMULARY) IVPB PRN (11:37)
--- NOTE | 2018-10-17 14:26 | PN ---
Progress Note, Physician History of Present Illness: patient looking better remaining afebrile ng tube is out - Current Medication List Current Medications: Active Medications Acetaminophen (Ofirmev Injection -) 1,000 mg IVPB Q6H PRN PRN Reason: PAIN LEVEL 4 - 6 Last Admin: 10/17/18 11:37 Dose: 1,000 mg Al Hydroxide/Mg Hydroxide (Mylanta Oral Suspension -) 30 ml PO TID@0600,1200, 1800 [facility] Last Admin: 10/17/18 11:30 Dose: Not Given Allopurinol (Zyloprim -) 100 mg PO DAILY [facility] Last Admin: 10/17/18 11:28 Dose: Not Given Amlodipine Besylate (Norvasc -) 10 mg PO DAILY [facility] Last Admin: 10/17/18 11:27 Dose: 10 mg Atorvastatin Calcium (Lipitor -) 40 mg PO HS [facility] Last Admin: 10/16/18 21:20 Dose: 40 mg Carbamazepine (Tegretol -) 200 mg PO QID [facility] Last Admin: 10/17/18 11:29 Dose: 200 mg Chlorpromazine HCl (Thorazine Injection -) 50 mg IM Q6H PRN PRN Reason: NAUSEA AND/OR VOMITING Clonidine (Catapres -) 0.2 mg PO DAILY [facility] Last Admin: 10/17/18 11:27 Dose: 0.2 mg Piperacillin Sod/Tazobactam (Sod 3.375 gm/ Dextrose) 50 mls @ 100 mls/hr IVPB Q8H-IV [facility]; Protocol Last Admin: 10/17/18 11:26 Dose: 100 mls/hr Lidocaine (Lidoderm Patch -) 1 patch TP DAILY [facility] Last Admin: 10/17/18 11:26 Dose: 1 patch Losartan Potassium (Cozaar -) 100 mg PO BID [facility] Last Admin: 10/17/18 11:27 Dose: 100 mg Metoclopramide HCl (Reglan -) 10 mg PO TIDAC [facility] Last Admin: 10/17/18 11:27 Dose: 10 mg Miscellaneous (Lidoderm Patch Removal) 1 each MC DAILY@2200 [facility] Last Admin: 10/16/18 21:20 Dose: 1 each Ondansetron HCl (Zofran Injection) 4 mg IVPUSH Q6H PRN PRN Reason: NAUSEA AND/OR VOMITING Last Admin: 10/15/18 17:15 Dose: 4 mg Oxybutynin Chloride (Ditropan -) 5 mg PO BID [facility] Last Admin: 10/17/18 11:27 Dose: 5 mg Oxycodone HCl (Oxycontin -) 10 mg PO BID [facility] Last Admin: 10/17/18 11:29 Dose: Not Given Pantoprazole Sodium (Protonix Iv) 40 mg IVPUSH BID [facility] Last Admin: 10/17/18 11:27 Dose: 40 mg Tamsulosin HCl (Flomax -) 0.4 mg PO DAILY@0830 [facility] Last Admin: 10/17/18 11:28 Dose: 0.4 mg Topiramate (Topamax -) 100 mg PO BID [facility] Last Admin: 10/17/18 11:30 Dose: 100 mg Valproate Sodium (Depacon Injection -) 1,000 mg IVPB BID [facility] Last Admin: 10/17/18 11:28 Dose: 1,000 mg - Objective Vital Signs: Vital Signs Temperature 99.5 F 10/17/18 13:13 Pulse Rate 80 10/17/18 13:13 Respiratory Rate 16 10/17/18 13:13 Blood Pressure 127/64 10/17/18 13:13 O2 Sat by Pulse Oximetry (%) 95 10/16/18 21:00 Constitutional: Yes: No Distress, Calm Cardiovascular: Yes: Regular Rate and Rhythm Respiratory: Yes: Regular, CTA Bilaterally Gastrointestinal: Yes: Distention, Other Musculoskeletal: Yes: WNL Extremities: Yes: WNL Neurological: Yes: Alert, Oriented Psychiatric: Yes: Alert, Oriented Labs: CBC, BMP 10/16/18 07:45 10/16/18 07:45 INR, PTT INR 1.09 (0.83-1.09) 09/30/18 06:20 Assessment/Plan patient with gastric cancer recently diagnosed got a port placement plan gastric cancer fever probably abscess nausea gout estefania prepyloric ulcer plan will d/c abx tomorrow nutrition rest as per the team monitor
--- NOTE | 2018-10-17 16:33 | PN ---
Progress Note, Physician - Current Medication List Current Medications: Active Medications Acetaminophen (Ofirmev Injection -) 1,000 mg IVPB Q6H PRN PRN Reason: PAIN LEVEL 4 - 6 Last Admin: 10/17/18 11:37 Dose: 1,000 mg Al Hydroxide/Mg Hydroxide (Mylanta Oral Suspension -) 30 ml PO TID@0600,1200, 1800 [facility] Last Admin: 10/17/18 11:30 Dose: Not Given Allopurinol (Zyloprim -) 100 mg PO DAILY [facility] Last Admin: 10/17/18 11:28 Dose: Not Given Amlodipine Besylate (Norvasc -) 10 mg PO DAILY [facility] Last Admin: 10/17/18 11:27 Dose: 10 mg Atorvastatin Calcium (Lipitor -) 40 mg PO HS [facility] Last Admin: 10/16/18 21:20 Dose: 40 mg Carbamazepine (Tegretol -) 200 mg PO QID [facility] Last Admin: 10/17/18 11:29 Dose: 200 mg Chlorpromazine HCl (Thorazine Injection -) 50 mg IM Q6H PRN PRN Reason: NAUSEA AND/OR VOMITING Clonidine (Catapres -) 0.2 mg PO DAILY [facility] Last Admin: 10/17/18 11:27 Dose: 0.2 mg Piperacillin Sod/Tazobactam (Sod 3.375 gm/ Dextrose) 50 mls @ 100 mls/hr IVPB Q8H-IV [facility]; Protocol Last Admin: 10/17/18 11:26 Dose: 100 mls/hr Lidocaine (Lidoderm Patch -) 1 patch TP DAILY [facility] Last Admin: 10/17/18 11:26 Dose: 1 patch Losartan Potassium (Cozaar -) 100 mg PO BID [facility] Last Admin: 10/17/18 11:27 Dose: 100 mg Metoclopramide HCl (Reglan -) 10 mg PO TIDAC [facility] Last Admin: 10/17/18 11:27 Dose: 10 mg Miscellaneous (Lidoderm Patch Removal) 1 each MC DAILY@2200 [facility] Last Admin: 10/16/18 21:20 Dose: 1 each Ondansetron HCl (Zofran Injection) 4 mg IVPUSH Q6H PRN PRN Reason: NAUSEA AND/OR VOMITING Last Admin: 10/15/18 17:15 Dose: 4 mg Oxybutynin Chloride (Ditropan -) 5 mg PO BID [facility] Last Admin: 10/17/18 11:27 Dose: 5 mg Oxycodone HCl (Oxycontin -) 10 mg PO BID [facility] Last Admin: 10/17/18 11:29 Dose: Not Given Pantoprazole Sodium (Protonix Iv) 40 mg IVPUSH BID [facility] Last Admin: 10/17/18 11:27 Dose: 40 mg Tamsulosin HCl (Flomax -) 0.4 mg PO DAILY@0830 [facility] Last Admin: 10/17/18 11:28 Dose: 0.4 mg Topiramate (Topamax -) 100 mg PO BID [facility] Last Admin: 10/17/18 11:30 Dose: 100 mg Valproate Sodium (Depacon Injection -) 1,000 mg IVPB BID [facility] Last Admin: 10/17/18 11:28 Dose: 1,000 mg - Objective Vital Signs: Vital Signs Temperature 99.5 F 10/17/18 13:13 Pulse Rate 80 10/17/18 13:13 Respiratory Rate 16 10/17/18 13:13 Blood Pressure 127/64 10/17/18 13:13 O2 Sat by Pulse Oximetry (%) 95 10/17/18 09:00 Labs: CBC, BMP 10/16/18 07:45 10/16/18 07:45 INR, PTT INR 1.09 (0.83-1.09) 09/30/18 06:20 Problem List - Problems (1) Abdominal pain Code(s): R10.9 - UNSPECIFIED ABDOMINAL PAIN Qualifiers: Abdominal location: right upper quadrant Qualified Code(s): R10.11 - Right upper quadrant pain (2) Gastric ulcer Code(s): K25.9 - GASTRIC ULCER, UNSP ACUTE OR CHRONIC, W/O HEMOR OR PERF Qualifiers: Gastric ulcer complication status: without hemorrhage or perforation (3) Essential (primary) hypertension Code(s): I10 - ESSENTIAL (PRIMARY) HYPERTENSION (4) Seizure disorder Code(s): G40.909 - EPILEPSY, UNSP, NOT INTRACTABLE, WITHOUT STATUS EPILEPTICUS Assessment/Plan patient has back pain. No intestinal obstruction. May start chemotherapy.
--- NOTE | 2018-10-17 21:52 | PN ---
Progress Note (short form) - Note Progress Note: patient seen and examined oriented in person/place rports port site pain no abdominal syptms tolerating diet afvss Lungs: Clear to P&A Abd: Soft, Normal bowel sounds, + distention Ext:No significant edema Labs/meds reviewed A/P gastric adenoca. s/p laparoscopic surgery for barbara biopsies, sub diaphragmatic and peritoneal biopsies. resolving ileus/ phlegmon her2 testing pending will discuss with Id/surgery teams
[2018-10-17] MEDS: ATORVASTATIN CA 40 MG TABLET (FP) PO SCH (22:31)
[2018-10-17] MEDS: LIDOCAINE PATCH REMOVAL MC SCH (22:32)
[2018-10-18] MEDS ORDERED: DEXTROSE 5%-WATER - 50 ML IVPB ONE ×2 (00:55→09:56)
[2018-10-18] MEDS ORDERED: PIPERACILLIN/TAZOBACTAM 3.375 GM VIAL IVPB ONE ×2 (00:55→09:56)
[2018-10-18] MEDS: PIPERACILLIN/TAZOB 3.375 GM 3.375 GM in DEXTROSE 5%-WATER - 50 ML IVPB SCH ×2 (02:11→11:09)
[2018-10-18] MEDS: ACETAMINOPHEN 1000 MG/100 ML VIAL (NON FORMULARY) IVPB PRN ×2 (02:11→11:42)
[2018-10-18] MEDS: METOCLOPRAMIDE HCL 10 MG TABLET (FP) PO SCH ×3 (06:04→17:24)
[2018-10-18] MEDS: MAG HYDROX/AL HYDROX/SIMETH 30 ML UNIT-DOSE CUP PO SCH ×3 (06:04→17:24)
[2018-10-18] MEDS: TAMSULOSIN HCL 0.4 MG CAP PO SCH (08:30)
--- NOTE | 2018-10-18 09:34 | PN ---
Progress Note, Physician Chief Complaint: Gets back pain - Current Medication List Current Medications: Active Medications Acetaminophen (Ofirmev Injection -) 1,000 mg IVPB Q6H PRN PRN Reason: PAIN LEVEL 4 - 6 Last Admin: 10/18/18 02:11 Dose: 1,000 mg Al Hydroxide/Mg Hydroxide (Mylanta Oral Suspension -) 30 ml PO TID@0600,1200, 1800 [facility] Last Admin: 10/18/18 06:04 Dose: Not Given Allopurinol (Zyloprim -) 100 mg PO DAILY [facility] Last Admin: 10/17/18 11:28 Dose: Not Given Amlodipine Besylate (Norvasc -) 10 mg PO DAILY [facility] Last Admin: 10/17/18 11:27 Dose: 10 mg Atorvastatin Calcium (Lipitor -) 40 mg PO HS [facility] Last Admin: 10/17/18 22:31 Dose: 40 mg Carbamazepine (Tegretol -) 200 mg PO QID [facility] Last Admin: 10/17/18 22:31 Dose: 200 mg Chlorpromazine HCl (Thorazine Injection -) 50 mg IM Q6H PRN PRN Reason: NAUSEA AND/OR VOMITING Clonidine (Catapres -) 0.2 mg PO DAILY [facility] Last Admin: 10/17/18 11:27 Dose: 0.2 mg Piperacillin Sod/Tazobactam (Sod 3.375 gm/ Dextrose) 50 mls @ 100 mls/hr IVPB Q8H-IV [facility]; Protocol Last Admin: 10/18/18 02:11 Dose: 100 mls/hr Lidocaine (Lidoderm Patch -) 1 patch TP DAILY [facility] Last Admin: 10/17/18 11:26 Dose: 1 patch Losartan Potassium (Cozaar -) 100 mg PO BID [facility] Last Admin: 10/17/18 22:31 Dose: 100 mg Metoclopramide HCl (Reglan -) 10 mg PO TIDAC [facility] Last Admin: 10/18/18 06:04 Dose: 10 mg Miscellaneous (Lidoderm Patch Removal) 1 each MC DAILY@2200 [facility] Last Admin: 10/17/18 22:32 Dose: 1 each Ondansetron HCl (Zofran Injection) 4 mg IVPUSH Q6H PRN PRN Reason: NAUSEA AND/OR VOMITING Last Admin: 10/15/18 17:15 Dose: 4 mg Oxybutynin Chloride (Ditropan -) 5 mg PO BID [facility] Last Admin: 10/17/18 22:31 Dose: 5 mg Oxycodone HCl (Oxycontin -) 10 mg PO BID [facility] Last Admin: 10/17/18 22:32 Dose: 10 mg Pantoprazole Sodium (Protonix Iv) 40 mg IVPUSH BID [facility] Last Admin: 10/17/18 22:32 Dose: 40 mg Tamsulosin HCl (Flomax -) 0.4 mg PO DAILY@0830 [facility] Last Admin: 10/17/18 11:28 Dose: 0.4 mg Topiramate (Topamax -) 100 mg PO BID [facility] Last Admin: 10/17/18 22:31 Dose: 100 mg Valproate Sodium (Depacon Injection -) 1,000 mg IVPB BID [facility] Last Admin: 10/17/18 23:23 Dose: 1,000 mg - Objective Vital Signs: Vital Signs Temperature 98.1 F 10/18/18 06:00 Pulse Rate 75 10/18/18 06:00 Respiratory Rate 20 10/18/18 06:00 Blood Pressure 103/58 L 10/18/18 06:00 O2 Sat by Pulse Oximetry (%) 96 10/17/18 21:00 Constitutional: Yes: Anxious Eyes: Yes: WNL HENT: Yes: WNL Neck: Yes: WNL Cardiovascular: Yes: Pulse Irregular Gastrointestinal: Yes: Normal Bowel Sounds Genitourinary: Yes: WNL Peripheral Pulses WNL: Yes Labs: CBC, BMP 10/16/18 07:45 10/16/18 07:45 INR, PTT INR 1.09 (0.83-1.09) 09/30/18 06:20 Assessment/Plan Case discussed with Dr Gramajo He can start chemo after 2weeks Needs placment SNF rehab for 2weeks After that he goes home and gets chemo
[2018-10-18] MEDS ORDERED: PT OWN MED DRAWER 7, Y5N ONE ×3 (09:55→21:10)
[2018-10-18] MEDS: LOSARTAN POTASSIUM 50 MG TABLET (FP) PO SCH ×2 (11:07→21:39)
[2018-10-18] MEDS: amLODIPine BESYLATE 10 MG TABLET (FP) PO SCH (11:07)
[2018-10-18] MEDS: PANTOPRAZOLE SODIUM 40 MG VIAL IVPUSH SCH ×2 (11:07→21:38)
[2018-10-18] MEDS: OXYBUTYNIN CHLORIDE 5 MG TABLET PO SCH ×2 (11:07→21:39)
[2018-10-18] MEDS: ALLOPURINOL 100 MG TABLET (FP) PO SCH (11:07)
[2018-10-18] MEDS: cloNIDine HCL 0.1 MG TABLET PO SCH (11:08)
[2018-10-18] MEDS: oxyCODONE HCL 10 MG SUSTAINED ACTING TABLET PO SCH ×2 (11:08→21:35)
[2018-10-18] MEDS: LIDOCAINE 5% TOPICAL PATCH TP SCH (11:09)
[2018-10-18] MEDS: VALPROATE SODIUM 500 MG/5 ML VIAL IVPB SCH ×2 (11:09→21:40)
[2018-10-18] MEDS: TOPIRAMATE 100 MG TABLET PO SCH ×2 (11:10→21:40)
--- NOTE | 2018-10-18 11:10 | PN ---
Progress Note, Physician - Current Medication List Current Medications: Active Medications Acetaminophen (Ofirmev Injection -) 1,000 mg IVPB Q6H PRN PRN Reason: PAIN LEVEL 4 - 6 Last Admin: 10/18/18 02:11 Dose: 1,000 mg Al Hydroxide/Mg Hydroxide (Mylanta Oral Suspension -) 30 ml PO TID@0600,1200, 1800 [facility] Last Admin: 10/18/18 06:04 Dose: Not Given Allopurinol (Zyloprim -) 100 mg PO DAILY [facility] Last Admin: 10/17/18 11:28 Dose: Not Given Amlodipine Besylate (Norvasc -) 10 mg PO DAILY [facility] Last Admin: 10/17/18 11:27 Dose: 10 mg Atorvastatin Calcium (Lipitor -) 40 mg PO HS [facility] Last Admin: 10/17/18 22:31 Dose: 40 mg Carbamazepine (Tegretol -) 200 mg PO QID [facility] Last Admin: 10/17/18 22:31 Dose: 200 mg Chlorpromazine HCl (Thorazine Injection -) 50 mg IM Q6H PRN PRN Reason: NAUSEA AND/OR VOMITING Clonidine (Catapres -) 0.2 mg PO DAILY [facility] Last Admin: 10/17/18 11:27 Dose: 0.2 mg Piperacillin Sod/Tazobactam (Sod 3.375 gm/ Dextrose) 50 mls @ 100 mls/hr IVPB Q8H-IV [facility]; Protocol Last Admin: 10/18/18 02:11 Dose: 100 mls/hr Lidocaine (Lidoderm Patch -) 1 patch TP DAILY [facility] Last Admin: 10/17/18 11:26 Dose: 1 patch Losartan Potassium (Cozaar -) 100 mg PO BID [facility] Last Admin: 10/17/18 22:31 Dose: 100 mg Metoclopramide HCl (Reglan -) 10 mg PO TIDAC [facility] Last Admin: 10/18/18 06:04 Dose: 10 mg Miscellaneous (Lidoderm Patch Removal) 1 each MC DAILY@2200 [facility] Last Admin: 10/17/18 22:32 Dose: 1 each Ondansetron HCl (Zofran Injection) 4 mg IVPUSH Q6H PRN PRN Reason: NAUSEA AND/OR VOMITING Last Admin: 10/15/18 17:15 Dose: 4 mg Oxybutynin Chloride (Ditropan -) 5 mg PO BID [facility] Last Admin: 10/17/18 22:31 Dose: 5 mg Oxycodone HCl (Oxycontin -) 10 mg PO BID [facility] Last Admin: 10/17/18 22:32 Dose: 10 mg Pantoprazole Sodium (Protonix Iv) 40 mg IVPUSH BID [facility] Last Admin: 10/17/18 22:32 Dose: 40 mg Tamsulosin HCl (Flomax -) 0.4 mg PO DAILY@0830 [facility] Last Admin: 10/17/18 11:28 Dose: 0.4 mg Topiramate (Topamax -) 100 mg PO BID [facility] Last Admin: 10/17/18 22:31 Dose: 100 mg Valproate Sodium (Depacon Injection -) 1,000 mg IVPB BID [facility] Last Admin: 10/17/18 23:23 Dose: 1,000 mg - Objective Vital Signs: Vital Signs Temperature 98.1 F 10/18/18 06:00 Pulse Rate 75 10/18/18 06:00 Respiratory Rate 20 10/18/18 06:00 Blood Pressure 103/58 L 10/18/18 06:00 O2 Sat by Pulse Oximetry (%) 96 10/17/18 21:00 Labs: CBC, BMP 10/16/18 07:45 10/16/18 07:45 INR, PTT INR 1.09 (0.83-1.09) 09/30/18 06:20 Problem List - Problems (1) Abdominal pain Code(s): R10.9 - UNSPECIFIED ABDOMINAL PAIN Qualifiers: Abdominal location: right upper quadrant Qualified Code(s): R10.11 - Right upper quadrant pain (2) Gastric ulcer Code(s): K25.9 - GASTRIC ULCER, UNSP ACUTE OR CHRONIC, W/O HEMOR OR PERF Qualifiers: Gastric ulcer complication status: without hemorrhage or perforation (3) Essential (primary) hypertension Code(s): I10 - ESSENTIAL (PRIMARY) HYPERTENSION (4) Seizure disorder Code(s): G40.909 - EPILEPSY, UNSP, NOT INTRACTABLE, WITHOUT STATUS EPILEPTICUS Assessment/Plan Patient is tolerating oral feeding , having bowel movements. Chest wall wound is clean. c/O Back pain. No focal tenderness. Will consider bone scan to r/o bone metastasis. Spoke to the patient and his . No sign of intraabdominal infection. Medical oncology follow up.
[2018-10-18] MEDS: carBAMazepine 200 MG TABLET PO SCH ×4 (11:11→21:39)
--- NOTE | 2018-10-18 12:37 | PN ---
Progress Note, Physician History of Present Illness: stable very weak back pain going for bone scan afebrile wbc normal - Current Medication List Current Medications: Active Medications Al Hydroxide/Mg Hydroxide (Mylanta Oral Suspension -) 30 ml PO TID@0600,1200, 1800 [facility] Last Admin: 10/18/18 11:07 Dose: 30 ml Allopurinol (Zyloprim -) 100 mg PO DAILY [facility] Last Admin: 10/18/18 11:07 Dose: 100 mg Amlodipine Besylate (Norvasc -) 10 mg PO DAILY [facility] Last Admin: 10/18/18 11:07 Dose: 10 mg Atorvastatin Calcium (Lipitor -) 40 mg PO HS [facility] Last Admin: 10/17/18 22:31 Dose: 40 mg Carbamazepine (Tegretol -) 200 mg PO QID [facility] Last Admin: 10/18/18 11:11 Dose: 200 mg Chlorpromazine HCl (Thorazine Injection -) 50 mg IM Q6H PRN PRN Reason: NAUSEA AND/OR VOMITING Clonidine (Catapres -) 0.2 mg PO DAILY [facility] Last Admin: 10/18/18 11:08 Dose: 0.2 mg Piperacillin Sod/Tazobactam (Sod 3.375 gm/ Dextrose) 50 mls @ 100 mls/hr IVPB Q8H-IV [facility]; Protocol Last Admin: 10/18/18 11:09 Dose: 100 mls/hr Lidocaine (Lidoderm Patch -) 1 patch TP DAILY [facility] Last Admin: 10/18/18 11:09 Dose: 1 patch Losartan Potassium (Cozaar -) 100 mg PO BID [facility] Last Admin: 10/18/18 11:07 Dose: 100 mg Metoclopramide HCl (Reglan -) 10 mg PO TIDAC [facility] Last Admin: 10/18/18 11:45 Dose: 10 mg Miscellaneous (Lidoderm Patch Removal) 1 each MC DAILY@2200 [facility] Last Admin: 10/17/18 22:32 Dose: 1 each Ondansetron HCl (Zofran Injection) 4 mg IVPUSH Q6H PRN PRN Reason: NAUSEA AND/OR VOMITING Last Admin: 10/15/18 17:15 Dose: 4 mg Oxybutynin Chloride (Ditropan -) 5 mg PO BID [facility] Last Admin: 10/18/18 11:07 Dose: 5 mg Oxycodone HCl (Oxycontin -) 10 mg PO BID [facility] Pantoprazole Sodium (Protonix Iv) 40 mg IVPUSH BID [facility] Last Admin: 10/18/18 11:07 Dose: 40 mg Tamsulosin HCl (Flomax -) 0.4 mg PO DAILY@0830 [facility] Last Admin: 10/18/18 08:30 Dose: 0.4 mg Topiramate (Topamax -) 100 mg PO BID [facility] Last Admin: 10/18/18 11:10 Dose: 100 mg Valproate Sodium (Depacon Injection -) 1,000 mg IVPB BID [facility] Last Admin: 10/18/18 11:09 Dose: 1,000 mg - Objective Vital Signs: Vital Signs Temperature 98.0 F 10/18/18 10:00 Pulse Rate 95 H 10/18/18 10:00 Respiratory Rate 18 10/18/18 10:00 Blood Pressure 143/89 10/18/18 10:00 O2 Sat by Pulse Oximetry (%) 96 10/17/18 21:00 Constitutional: Yes: Calm, Mild Distress, Other (weakness) Eyes: Yes: Conjunctiva Clear Neck: Yes: Supple, Trachea Midline Cardiovascular: Yes: Regular Rate and Rhythm Respiratory: Yes: Regular, CTA Bilaterally Gastrointestinal: Yes: Soft, Hypoactive Bowel Sounds Musculoskeletal: Yes: Back Pain Extremities: Yes: WNL Neurological: Yes: Alert, Oriented Psychiatric: Yes: Alert Labs: CBC, BMP 10/16/18 07:45 10/16/18 07:45 INR, PTT INR 1.09 (0.83-1.09) 09/30/18 06:20 Assessment/Plan patient with gastric cancer recently diagnosed got a port placement plan gastric cancer fever probably abscess nausea gout estefania prepyloric ulcer plan stopped abx nutrition rest as per the team monitor await for imaging studies
--- NOTE | 2018-10-18 14:22 | PN ---
Physical Exam: SUBJECTIVE: Patient seen and examined OBJECTIVE: Vital Signs Period Temp Pulse Resp BP Sys/Cota Pulse Ox Last 24 Hr 98.0 F-98.6 F 75-95 18-20 103-143/58-89 96 GENERAL: The patient is awake, alert, and fully oriented, in no acute distress. HEAD: Normal with no signs of trauma. EYES: PERRL, extraocular movements intact, sclera anicteric, conjunctiva clear. No ptosis. ENT: Ears normal, nares patent, oropharynx clear without exudates, moist mucous membranes. NECK: Trachea midline, full range of motion, supple. LUNGS: Breath sounds equal, clear to auscultation bilaterally, no wheezes, no crackles, no accessory muscle use. HEART: Regular rate and rhythm, S1, S2 without murmur, rub or gallop. ABDOMEN: Soft, nontender, nondistended, normoactive bowel sounds, no guarding, no rebound, no hepatosplenomegaly, no masses. EXTREMITIES: 2+ pulses, warm, well-perfused, no edema. NEUROLOGICAL: Cranial nerves II through XII grossly intact. Normal speech, gait not observed. PSYCH: Normal mood, normal affect. SKIN: Warm, dry, normal turgor, no rashes or lesions noted Active Medications Generic Name Dose Route Start Last Admin Trade Name Freq PRN Reason Stop Dose Admin Al Hydroxide/Mg Hydroxide 30 ml 10/11/18 12:00 10/18/18 11:07 Mylanta Oral Suspension - PO 30 ml TID@0600,1200,1800 [facility] Administration Allopurinol 100 mg 10/11/18 11:30 10/18/18 11:07 Zyloprim - PO 100 mg DAILY [facility] Administration Amlodipine Besylate 10 mg 10/11/18 11:30 10/18/18 11:07 Norvasc - PO 10 mg DAILY [facility] Administration Atorvastatin Calcium 40 mg 10/11/18 22:00 10/17/18 22:31 Lipitor - PO 40 mg HS [facility] Administration Carbamazepine 200 mg 10/16/18 22:00 10/18/18 11:11 Tegretol - PO 200 mg QID [facility] Administration Chlorpromazine HCl 50 mg 10/11/18 10:19 Thorazine Injection - IM Q6H PRN NAUSEA AND/OR VOMITING Clonidine 0.2 mg 10/11/18 11:30 10/18/18 11:08 Catapres - PO 0.2 mg DAILY [facility] Administration Lidocaine 1 patch 10/12/18 10:00 10/18/18 11:09 Lidoderm Patch - TP 1 patch DAILY [facility] Administration Losartan Potassium 100 mg 10/11/18 11:45 10/18/18 11:07 Cozaar - PO 100 mg BID [facility] Administration Metoclopramide HCl 10 mg 10/14/18 18:45 10/18/18 11:45 Reglan - PO 10 mg TIDAC [facility] Administration Miscellaneous 1 each 10/11/18 22:00 10/17/18 22:32 Lidoderm Patch Removal MC 1 each DAILY@2200 [facility] Administration Ondansetron HCl 4 mg 10/11/18 10:19 10/15/18 17:15 Zofran Injection IVPUSH 4 mg Q6H PRN Administration NAUSEA AND/OR VOMITING Oxybutynin Chloride 5 mg 10/11/18 11:30 10/18/18 11:07 Ditropan - PO 5 mg BID [facility] Administration Oxycodone HCl 10 mg 10/18/18 22:00 Oxycontin - PO BID [facility] Pantoprazole Sodium 40 mg 10/11/18 22:00 10/18/18 11:07 Protonix Iv IVPUSH 40 mg BID [facility] Administration Tamsulosin HCl 0.4 mg 10/12/18 08:30 10/18/18 08:30 Flomax - PO 0.4 mg DAILY@0830 [facility] Administration Topiramate 100 mg 10/11/18 22:00 10/18/18 11:10 Topamax - PO 100 mg BID [facility] Administration Valproate Sodium 1,000 mg 10/13/18 10:00 10/18/18 11:09 Depacon Injection - IVPB 1,000 mg BID [facility] Administration ASSESSMENT/PLAN: This is a 68 year old male with a history of epilepsy, htn, bph who presents with bloating and RLQ pain, found to have a large prepyloric ulcer ; suspect malignancy. Adenocarcinoma of the stomach prepyloric ulcer Gout JERRELL Illeus Phlegman -tissue biopsy +for gastric adeno Ca -barbara biopsies, sub diaphragmatic and peritoneal biopsies pending -IV antibiotics d/c'd today -for bone scan today -chemo port placed; discuss chemo /radiation ; Visit type - Emergency Visit Emergency Visit: Yes ED Registration Date: 09/28/18 Care time: The patient presented to the Emergency Department on the above date and was hospitalized for further evaluation of their emergent condition. - New Patient This patient is new to me today: No - Critical Care Critical Care patient: No
--- NOTE | 2018-10-18 18:43 | PN ---
Teaching Attending Note Name of Resident: Bekah Abarca ATTENDING PHYSICIAN STATEMENT I saw and evaluated the patient. I reviewed the resident's note and discussed the case with the resident. I agree with the resident's findings and plan as documented. SUBJECTIVE: currently sleeping - post bone scan Discussed status at length with and son Family would like patient to go to rehab short term before institution of therapy. Discussed the fact that if chemotherapy is not successful in future, patient may have limited life expectancy. OBJECTIVE: ASSESSMENT AND PLAN:
[2018-10-18] MEDS: ATORVASTATIN CA 40 MG TABLET (FP) PO SCH (21:39)
[2018-10-18] MEDS: LIDOCAINE PATCH REMOVAL MC SCH (21:40)
[2018-10-19] MEDS: METOCLOPRAMIDE HCL 10 MG TABLET (FP) PO SCH ×2 (06:16→10:38)
[2018-10-19] MEDS: MAG HYDROX/AL HYDROX/SIMETH 30 ML UNIT-DOSE CUP PO SCH ×2 (06:16→12:51)
--- NOTE | 2018-10-19 09:36 | DS ---
Physical Examination Vital Signs: Vital Signs Temperature 98.7 F 10/19/18 06:00 Pulse Rate 85 10/19/18 06:00 Respiratory Rate 21 H 10/19/18 06:00 Blood Pressure 138/76 10/19/18 06:00 O2 Sat by Pulse Oximetry (%) 96 10/18/18 21:00 Findings/Remarks: Diagnosed to have Ca of stomach with mets Had developed ilius post laproscopy Oncology evaluated ,advised chemo after 2 weeks of rehab Constitutional: Yes: Calm Eyes: Yes: WNL HENT: Yes: WNL Neck: Yes: WNL Cardiovascular: Yes: WNL Respiratory: Yes: WNL Gastrointestinal: Yes: Normal Bowel Sounds Renal/: Yes: WNL Extremities: Yes: WNL Edema: No Peripheral Pulses WNL: Yes Neurological: Yes: Alert ...Motor Strength: WNL Psychiatric: Yes: Alert Labs: CBC, BMP 10/16/18 07:45 10/16/18 07:45 Discharge Summary Reason For Visit: PANCREATITIS Current Active Problems Abdominal pain (Acute) Abnormal liver function tests (Acute) Adenocarcinoma of stomach, stage 4 (Acute) Diverticulosis (Acute) Duodenitis (Acute) Essential (primary) hypertension (Acute) Gastric ulcer (Acute) Hypercholesteremia (Acute) Hyperuricemia (Acute) Malnutrition (Acute) Pancreatitis (Acute) Seizure disorder (Acute) Condition: Stable - Instructions Referrals: Genevieve Whitman MD [Primary Care Provider] - - Home Medications Comprehensive Discharge Medication List: Ambulatory Orders Amlodipine Besylate [Norvasc -] 10 mg PO DAILY 05/25/15 Atorvastatin Ca [Lipitor] 40 mg PO HS 05/25/15 Carbamazepine Xr [Tegretol XR -] 400 mg PO BID 05/25/15 Clonidine HCl 1 mg PO AM 05/25/15 Divalproex [Depakote -] 1,000 mg PO BID 05/25/15 Losartan Potassium [Cozaar] 100 mg PO DAILY 05/25/15 Tamsulosin HCl [Flomax -] 0.4 mg PO BID 05/25/15 Topiramate [Topamax] 100 mg PO BID 05/25/15 Clonidine HCl 0.4 mg PO HS 10/20/16 Cyclobenzaprine HCl [Flexeril -] 5 mg PO TID PRN #12 tablet 09/12/18 Ibuprofen [Motrin -] 600 mg PO TID PRN #21 tablet 09/12/18
[2018-10-19] MEDS ORDERED: PT OWN MED DRAWER 7, Y5N ONE ×2 (10:15→13:51)
[2018-10-19] MEDS: TAMSULOSIN HCL 0.4 MG CAP PO SCH (10:37)
[2018-10-19] MEDS: cloNIDine HCL 0.1 MG TABLET PO SCH (10:37)
[2018-10-19] MEDS: amLODIPine BESYLATE 10 MG TABLET (FP) PO SCH (10:37)
[2018-10-19] MEDS: OXYBUTYNIN CHLORIDE 5 MG TABLET PO SCH (10:37)
[2018-10-19] MEDS: LIDOCAINE 5% TOPICAL PATCH TP SCH (10:37)
[2018-10-19] MEDS: LOSARTAN POTASSIUM 50 MG TABLET (FP) PO SCH (10:38)
[2018-10-19] MEDS: ALLOPURINOL 100 MG TABLET (FP) PO SCH (10:38)
[2018-10-19] MEDS: carBAMazepine 200 MG TABLET PO SCH ×2 (10:39→14:05)
[2018-10-19] MEDS: PANTOPRAZOLE SODIUM 40 MG VIAL IVPUSH SCH (10:39)
[2018-10-19] MEDS: VALPROATE SODIUM 500 MG/5 ML VIAL IVPB SCH (10:39)
[2018-10-19] MEDS: oxyCODONE HCL 10 MG SUSTAINED ACTING TABLET PO SCH (10:39)
[2018-10-19] MEDS: TOPIRAMATE 100 MG TABLET PO SCH (10:40)
[2018-10-19] MEDS ORDERED: PANTOPRAZOLE 40 MG TABLET (FP) PO SCH (11:30)
[2018-10-19] MEDS ORDERED: DIVALPROEX SODIUM 500 MG TABLET E.C. PO SCH (12:00)
--- NOTE | 2018-10-19 12:11 | PN ---
Progress Note, Physician History of Present Illness: stable feels better in the room patient going to rehab - Current Medication List Current Medications: Active Medications Al Hydroxide/Mg Hydroxide (Mylanta Oral Suspension -) 30 ml PO TID@0600,1200, 1800 [facility] Last Admin: 10/19/18 06:16 Dose: 30 ml Allopurinol (Zyloprim -) 100 mg PO DAILY [facility] Last Admin: 10/19/18 10:38 Dose: Not Given Amlodipine Besylate (Norvasc -) 10 mg PO DAILY [facility] Last Admin: 10/19/18 10:37 Dose: 10 mg Atorvastatin Calcium (Lipitor -) 40 mg PO HS [facility] Last Admin: 10/18/18 21:39 Dose: 40 mg Carbamazepine (Tegretol -) 200 mg PO QID [facility] Last Admin: 10/19/18 10:39 Dose: 200 mg Chlorpromazine HCl (Thorazine Injection -) 50 mg IM Q6H PRN PRN Reason: NAUSEA AND/OR VOMITING Clonidine (Catapres -) 0.2 mg PO DAILY [facility] Last Admin: 10/19/18 10:37 Dose: 0.2 mg Divalproex Sodium (Depakote -) 1,000 mg PO BID [facility] Lidocaine (Lidoderm Patch -) 1 patch TP DAILY [facility] Last Admin: 10/19/18 10:37 Dose: 1 patch Losartan Potassium (Cozaar -) 100 mg PO BID [facility] Last Admin: 10/19/18 10:38 Dose: 100 mg Metoclopramide HCl (Reglan -) 10 mg PO TIDAC [facility] Last Admin: 10/19/18 10:38 Dose: 10 mg Miscellaneous (Lidoderm Patch Removal) 1 each MC DAILY@2200 [facility] Last Admin: 10/18/18 21:40 Dose: 1 each Ondansetron HCl (Zofran Injection) 4 mg IVPUSH Q6H PRN PRN Reason: NAUSEA AND/OR VOMITING Last Admin: 10/15/18 17:15 Dose: 4 mg Oxybutynin Chloride (Ditropan -) 5 mg PO BID [facility] Last Admin: 10/19/18 10:37 Dose: 5 mg Oxycodone HCl (Oxycontin -) 10 mg PO BID [facility] Last Admin: 10/19/18 10:39 Dose: Not Given Pantoprazole Sodium (Protonix -) 40 mg PO BID [facility] Tamsulosin HCl (Flomax -) 0.4 mg PO DAILY@0830 [facility] Last Admin: 10/19/18 10:37 Dose: 0.4 mg Topiramate (Topamax -) 100 mg PO BID [facility] Last Admin: 10/19/18 10:40 Dose: 100 mg - Objective Vital Signs: Vital Signs Temperature 98.1 F 10/19/18 10:26 Pulse Rate 92 H 10/19/18 10:26 Respiratory Rate 20 10/19/18 10:26 Blood Pressure 151/90 10/19/18 10:26 O2 Sat by Pulse Oximetry (%) 96 10/19/18 09:00 Constitutional: Yes: No Distress, Calm Cardiovascular: Yes: Regular Rate and Rhythm Respiratory: Yes: Regular, CTA Bilaterally Gastrointestinal: Yes: Normal Bowel Sounds, Soft Neurological: Yes: Alert, Oriented Psychiatric: Yes: Alert, Oriented Labs: CBC, BMP 10/16/18 07:45 10/16/18 07:45 INR, PTT INR 1.09 (0.83-1.09) 09/30/18 06:20 Assessment/Plan patient with gastric cancer recently diagnosed got a port placement plan gastric cancer fever probably abscess nausea gout estefania prepyloric ulcer plan stable off of abx nutrition rest as per the team monitor await for imaging studies
[2018-10-19] MEDS ORDERED: ACETAMINOPHEN 325 MG TABLET (FP) PO PRN (13:40)
[2018-10-19 14:09] VITALS: BP 138/88; PULSE 84; TEMP 98.2
== END 2018-10-19 14:44 | DRG 326 ==
LOC: JER 10:54 → JERBED 18:39 → J5S 20:24
PROVIDERS: ADMIT Internal Medicine; ATTEND Internal Medicine
PROC: 0DB68ZX Excision of Stomach, Via Natural or Artificial Opening Endoscopic, Diagnostic (ICD-10-PCS; 2018-09-30)
PROC: 0DB98ZX Excision of Duodenum, Via Natural or Artificial Opening Endoscopic, Diagnostic (ICD-10-PCS; 2018-09-30)
PROC: 0DBA8ZX Excision of Jejunum, Via Natural or Artificial Opening Endoscopic, Diagnostic (ICD-10-PCS; 2018-09-30)
PROC: 0FB04ZX Excision of Liver, Percutaneous Endoscopic Approach, Diagnostic (ICD-10-PCS; 2018-10-07)
PROC: 0FB04ZX Excision of Liver, Percutaneous Endoscopic Approach, Diagnostic (ICD-10-PCS; 2018-10-07)
PROC: 3E1M38Z Irrigation of Peritoneal Cavity using Irrigating Substance, Percutaneous Approach (ICD-10-PCS; 2018-10-07)
PROC: 0DJ64ZZ Inspection of Stomach, Percutaneous Endoscopic Approach (ICD-10-PCS; principal; 2018-10-07 09:30)
PROC: 0JH60WZ Insertion of Totally Implantable Vascular Access Device into Chest Subcutaneous Tissue and Fascia, Open Approach (ICD-10-PCS; 2018-10-11)
DX: C16.9 Malignant neoplasm of stomach, unspecified (principal); K85.90 Acute pancreatitis without necrosis or infection, unspecified; J18.9 Pneumonia, unspecified organism; C78.7 Secondary malignant neoplasm of liver and intrahepatic bile duct; K91.89 Other postprocedural complications and disorders of digestive system; C78.89 Secondary malignant neoplasm of other digestive organs; N17.9 Acute kidney failure, unspecified; K56.7 Ileus, unspecified; E46 Unspecified protein-calorie malnutrition; K29.80 Duodenitis without bleeding; R94.5 Abnormal results of liver function studies; G40.909 Epilepsy, unspecified, not intractable, without status epilepticus; K57.90 Diverticulosis of intestine, part unspecified, without perforation or abscess without bleeding; I10 Essential (primary) hypertension; K44.9 Diaphragmatic hernia without obstruction or gangrene; K29.50 Unspecified chronic gastritis without bleeding; M10.9 Gout, unspecified; E88.09 Other disorders of plasma-protein metabolism, not elsewhere classified; N40.0 Benign prostatic hyperplasia without lower urinary tract symptoms; E78.5 Hyperlipidemia, unspecified; Y83.9 Surgical procedure, unspecified as the cause of abnormal reaction of the patient, or of later complication, without mention of misadventure at the time of the procedure
CPT/HCPCS: 36415; 71045-TC-FY; 71260-TC; 74018-TC-FY; 74021-TC-FY; 74176-TC; 74177-TC; 76000-TC-FY; 78306-TC; 80048; 80053; 80076; 81003; 81015; 82150; 82172; 82247; 82378; 82465; 82941; 82947; 82977; 83010; 83516; 83690; 83735; 83883; 84450; 84460; 84478; 84550; 85025; 85027; 85610; 86140; 86301; 86671; 86704; 86706; 86708; 86803; 86850; 86900; 86901; 87040; 87086; 87340; 88104; 88305-TC; 93005; 93010; 94760; 97116-GP; 97161-GP; 99284-25; A9503; J0131; J0735; J1644; J7030; Q9967